=== PATIENT | male | born 1950 | race Caucasian/White ===

== ENCOUNTER 2020-02-28 06:20 | Outpatient (REF) | payer MEDICARE, OTHER, SELFPAY ==
[2020-02-29 11:11] LABS: Free Prostate Spec Ag 1.1 ng/mL; Percent Free Prostate Spec Ag 23 % (calc) (>25); Prostate Specific Ag Total 4.7 ng/mL (< OR = 4.0)
== END 2020-02-28 06:21 | disposition home or self-care (01) ==
LOC: HO.LAB 06:20
PROVIDERS: PCP Internal Medicine; Visit Provider Urology
DX: C61 Malignant neoplasm of prostate (principal)
CPT/HCPCS: 84153; 84154

== ENCOUNTER → 2020-05-01 10:20 | Outpatient (BNVA) | payer MEDICARE, OTHER, SELFPAY | PROVIDERS: PCP Internal Medicine; Visit Provider Urology | DX: C61 Malignant neoplasm of prostate (principal); R97.20 Elevated prostate specific antigen [PSA]; Z80.42 Family history of malignant neoplasm of prostate | CPT/HCPCS: 81002; 99212 ==

== ENCOUNTER 2020-07-24 06:05 | Outpatient (REF) | payer MEDICARE, OTHER, SELFPAY ==
[2020-07-24 08:14] LABS: Prostate Specific Antigen 5.99 ng/mL (<0.05-4.0)
== END 2020-07-24 06:06 | disposition home or self-care (01) ==
LOC: HO.LAB 06:05
PROVIDERS: PCP Internal Medicine; Visit Provider Urology
DX: Z12.5 Encounter for screening for malignant neoplasm of prostate (principal); R97.20 Elevated prostate specific antigen [PSA]; C61 Malignant neoplasm of prostate
CPT/HCPCS: 36415; 84153

== ENCOUNTER → 2020-08-01 08:19 | Outpatient (BNVA) | payer MEDICARE, OTHER, SELFPAY | PROVIDERS: PCP Internal Medicine; Visit Provider Urology | DX: C61 Malignant neoplasm of prostate (principal) | CPT/HCPCS: 99212 ==

== ENCOUNTER 2020-08-04 13:23 | Outpatient (REF) | payer MEDICARE, OTHER, SELFPAY ==
--- NOTE | ~2020-08-04 | XR_ITS ---
EXAMINATION: XR LUMBOSACRAL SPINE CLINICAL INFORMATION: Low back pain COMPARISON: Previous x-ray August 2014 TECHNIQUE: Three views of the lumbosacral spine. FINDINGS: Bone alignment is normal. No fracture or dislocation is seen. There is degenerative spondylosis at L1-L2 3 and L3-L4. Disc spaces are normal. There is lower lumbar spine facet arthritis. There is evidence of atherosclerotic disease. XR/XR lumbar spine 2-3V IMPRESSION: Degenerative changes.
== END 2020-08-04 13:24 | disposition home or self-care (01) ==
LOC: HO.HMGCX 13:23
PROVIDERS: PCP Internal Medicine; Visit Provider Internal Medicine
DX: M54.5 Low back pain (principal)
CPT/HCPCS: 72100

== ENCOUNTER 2020-11-01 07:21 | Outpatient (REF) | payer MEDICARE, OTHER, SELFPAY ==
[2020-11-01 08:08] LABS: Blood Urea Nitrogen 19 mg/dL (9-16); Estimated Glomerular Filt Rate > 60
[2020-11-01 08:29] LABS: Prostate Specific Antigen 3.39 ng/mL (<0.05-4.0)
== END 2020-11-01 07:22 | disposition home or self-care (01) ==
LOC: HO.MRI 07:21
PROVIDERS: PCP Internal Medicine; Visit Provider Urology
DX: Z12.5 Encounter for screening for malignant neoplasm of prostate (principal); C61 Malignant neoplasm of prostate; N26.1 Atrophy of kidney (terminal); N13.8 Other obstructive and reflux uropathy; N40.1 Benign prostatic hyperplasia with lower urinary tract symptoms
CPT/HCPCS: 36415; 82565; 84153; 84520

== ENCOUNTER → 2020-12-05 15:12 | Outpatient (BNVA) | payer MEDICARE, OTHER, SELFPAY | PROVIDERS: PCP Internal Medicine; Visit Provider Urology | DX: C61 Malignant neoplasm of prostate (principal) | CPT/HCPCS: 99212 ==

== ENCOUNTER 2021-01-17 21:31 | Inpatient (IN) | payer MEDICARE, OTHER, SELFPAY ==
--- NOTE | ~2021-01-17 | MR_ITS ---
EXAMINATION: MR ABDOMEN WITHOUT CONTRAST CLINICAL INFORMATION: Dilated bile ducts COMPARISON: Previous CT of the abdomen and pelvis from yesterday TECHNIQUE: MR abdomen is performed without gadolinium contrast. The patient was claustrophobic and the exam could not be completed. MRCP sequences were not obtained. Localizer, coronal and axial T2 and axial fat sat T2 sequences only through the abdomen were performed. FINDINGS: LUNG BASES: The visualized lung bases are unremarkable. LIVER, GALLBLADDER, AND BILIARY TREE: There is a 1 x 1.5 cm right T2 lesion in the inferior aspect of the posterior segment of the right lobe of the liver that probably represents a cyst. There is a small 3 mm bright T2 lesion high in the dome of the right lobe and may represent a small cyst as well. The gallbladder is dilated. There is gallbladder wall thickening and edema. The gallbladder wall measures 6 mm. No gallstones are seen. Fluid fluid level in the gallbladder is noted. There is no intrahepatic biliary duct dilatation. The common bile duct is not well visualized. The visualized common bile duct is slightly dilated measuring 1 cm. A common bile duct stone is not seen. PANCREAS: Unremarkable. The main pancreatic duct is normal. SPLEEN: Unremarkable. ADRENAL GLANDS: Unremarkable. KIDNEYS AND URETERS: The kidneys are normal in size and shape. No hydronephrosis. No perinephric stranding. GASTROINTESTINAL TRACT: No bowel obstruction. No ascites or fluid collection. ABDOMINAL WALL: No significant hernia is appreciated. LYMPH NODES: No lymphadenopathy. VASCULAR: Unremarkable. OSSEOUS STRUCTURES: Marrow signal normal. There is degenerative disc disease with loss of bright T2 disc signal. MR/MR abdomen wo con IMPRESSION: Incomplete exam due to patient claustrophobia. MRCP sequences were not performed. The visualized common bile duct is minimally dilated measuring 1 cm. The intrahepatic bile ducts do not appear dilated. Enlarged gallbladder with gallbladder wall thickening and edema. No gallstone seen. if there is concern for cholecystitis, HIDA scan or ultrasound should be considered.
--- NOTE | ~2021-01-17 | CT_ITS ---
EXAMINATION: CT ABDOMEN AND PELVIS WITH CONTRAST CLINICAL INFORMATION: Severe epigastric pain. Leukocytosis. COMPARISON: None TECHNIQUE: Multidetector volumetric images were obtained from the superior aspect of the liver through the pubic symphysis following administration 85 mL of Omnipaque 350 intravenous contrast. Sagittal and coronal reformatted images were obtained on the technologist's workstation. Oral contrast: No This CT examination was performed using dose optimization techniques as appropriate, variously including the following: *Automated exposure control *Adjustment of mA and/or kV according to patient size (this includes techniques or standardized protocols for targeted exams where dose is matched to indication/reason for exam; i.e. extremities or head) *Use of iterative reconstruction technique DLP: 580 mGy-cm FINDINGS: LUNG BASES: The visualized lung bases are unremarkable. LIVER, GALLBLADDER, AND BILIARY TREE: The liver is normal in size, shape, and attenuation. There is a 1.9 cm cyst within hepatic segment 6, benign. There is mild central intrahepatic biliary duct dilatation and dilatation of the common bile duct to 10 mm, tapering smoothly to the ampulla. The gallbladder is distended. There is nondependent fat density within the gallbladder, likely cholesterol. Suspect cholelithiasis. No pericholecystic fat stranding. PANCREAS: Atrophic but otherwise unremarkable. SPLEEN: Unremarkable. ADRENAL GLANDS: There is a 1.1 cm nodule within the left adrenal gland. Right adrenal gland is normal. KIDNEYS AND URETERS: The kidneys are normal in size, shape, and attenuation. No hydronephrosis, hydroureter, or calculi seen. No perinephric stranding. BLADDER: Unremarkable. GASTROINTESTINAL TRACT: The small and large bowel are unremarkable. The appendix is unremarkable. ABDOMINAL WALL: No significant hernia is appreciated. LYMPH NODES: Normal. VASCULAR: Aorta is atherosclerotic but normal caliber. Patent venous structures. PELVIC VISCERA: Prostatomegaly present with median lobe impressing upon the bladder base to 0.1 cm. OSSEOUS STRUCTURES: No acute or suspicious osseous abnormalities. Prominent posterior disc herniation present at L4-L5. Smaller disc herniations present throughout the remainder of the lumbar spine. CT/CT abdomen pelvis w con IMPRESSION: * Cholelithiasis suspected. Consider right upper quadrant ultrasound if cholecystitis is a clinical possibility. * Mild dilatation of the biliary tree, without obstructive etiology identified from a CT imaging standpoint. * Incidental 1.1 cm left adrenal nodule. Consider follow-up CT adrenal mass protocol in one year, per ACR recommendations. * Prostatomegaly.
--- NOTE | ~2021-01-17 | US_ITS ---
EXAMINATION: US ABDOMEN LIMITED CLINICAL INFORMATION: Abdominal pain. Fullness gallbladder and common duct on recent cross-sectional imaging. COMPARISON: CT abdomen and pelvis 01/18/2021, MR abdomen noncontrast 01/18/2021 TECHNIQUE: Real-time imaging of the right upper quadrant abdominal viscera. FINDINGS: PANCREAS: No pancreatic enlargement or ductal dilatation or retroperitoneal effusion. LIVER: The liver is normal in size and smooth in contour. There is mild increased hepatic parenchymal echogenicity consistent with mild hepatic steatosis. There is a subcapsular cyst inferior right lobe responding to the lesion on CT and MR imaging measuring 1.7 x 1.5 cm. No associated peripheral or internal color flow. The remainder the liver shows no parenchymal lesion. There is no intrahepatic ductal dilatation. GALLBLADDER: The gallbladder is mildly the gallbladder is distended and there is circumferential wall thickening measuring up to 6 mm in caliber. There is no hyperemia of the gallbladder wall on color Doppler. There is near side increased echogenicity within the gallbladder lumen with strong posterior acoustic shadowing. Findings suggest diffuse gravel-like calculi and/or echogenic sludge. COMMON BILE DUCT: Not visualized by ultrasound. RIGHT KIDNEY: Normal. No hydronephrosis. No renal calculi or focal parenchymal lesions. The kidney measures 12.3 cm in maximum dimension. FREE FLUID: No gross ascites demonstrated. US/US abdomen limited IMPRESSION: 1. Distended gallbladder with circumferential wall thickening, increased intralumenal echogenicity and strong posterior shadowing. Findings suggest diffuse intraluminal gravel-like calculi. Possibility of acute or chronic cholecystitis is raised. 2. Common duct not visualized. No definite intrahepatic ductal dilatation. 3. Mild hepatic steatosis. Cyst inferior right hepatic lobe under 2 cm.
[2021-01-17 21:43] VITALS: BP 172/93; PULSE 66; RESP 15; TEMP 36; O2SAT 98; BMI 26.3
[2021-01-17 22:00] LABS: MANUAL DIFF FLAG NO
[2021-01-17 22:03] LABS: Basophils Percent Auto 0.2 % (0-2); Eosinophils Absolute Auto 0.3 X10*3/uL (0.0-0.4); Eosinophils Percent Auto 1.5 % (0-4); Hematocrit 48.1 % (42-52); Hemoglobin 16.6 g/dl (14.0-18.0); Imm Gran Abs Auto 0.08 X10*3/uL (0.00-0.03); Imm Gran Pct Auto 0.5 % (0.0-0.4); Lymphocytes Absolute Auto 1.4 X10*3/uL (1.2-4.9); Lymphocytes Percent Auto 8.8 % (20-40); Mean Corpuscular HGB Conc 34.5 g/dl (31.0-36.0); Mean Corpuscular Hemoglobin 32.5 pg (27.0-33.0); Mean Corpuscular Volume 94.1 fL (80-98); Mean Platelet Volume 9.6 fL (9.4-12.4); Monocytes Absolute Auto 1.2 X10*3/uL (0.1-1.2); Monocytes Percent Auto 7.4 % (2-11); Neutrophils Absolute Auto 13.4 X10*3/uL (2.0-8.3); Neutrophils Percent Auto 81.6 % (45-73); Platelet Count 252 X10*3/uL (160-400); Red Blood Count 5.11 X10*6/uL (4.60-5.80); Red Cell Distribution Width 12.2 % (11.0-16.0); White Blood Count 16.4 X10*3/uL (4.8-10.8)
[2021-01-17 22:26] LABS: Alanine Aminotransferase 24 U/L (0-40); Albumin Level 4.5 g/dL (3.5-5.0); Alkaline Phosphatase 112 U/L (39-117); Anion Gap 10 (12-20); Aspartate Amino Transferase 20 U/L (5-37); Bilirubin Total 0.4 mg/dL (0.0-1.0); Blood Urea Nitrogen 18 mg/dL (9-16); Calcium 9.8 mg/dL (8.4-10.2); Carbon Dioxide 31 mmol/L (22-29); Chloride 103 mmol/L (96-108); Creatinine Clr Calc Pharmacy 68.4; Estimated Glomerular Filt Rate > 60; Glucose Random 130 mg/dL (60-115); Lipase 18 U/L (8-78); Potassium 4.1 mmol/L (3.3-5.1); Sodium 140 mmol/L (135-145); Total Protein 6.9 g/dL (6.5-8.0)
[2021-01-17 22:38] LABS: Appearance Urine CLEAR; Color Urine YELLOW; Glucose Urine UA NEG (NEG); Leukocyte Esterase Urine NEG (NEG); Nitrite Urine NEG (NEG); Specific Gravity - Urine 1.025 (1.005-1.025); UACC Culture Trigger NO; Urine Blood TRACE (NEG); Urine Ketones NEG (NEG); Urine Protein NEG (NEG-TRACE)
--- NOTE | 2021-01-17 22:43 | ED_ITS ---
HPI - Abdominal Pain General Chief Complaint: Abdominal Pain Stated Complaint: abd pain Time Seen by Provider: 01/17/21 22:43 Source: patient Mode of arrival: ambulatory Limitations: no limitations History of Present Illness HPI narrative: increasing pain in the upper abdomen. The pain started 5 hours ago increasing. No nausea or vomiting no diarrhea. No prior surgery, no prior history. Patient denies fever or diarrhea. MD elicited complaint: abdominal pain Onset (ago): hour(s) Pain Consistency: constant Location: epigastric Severity: moderate Quality: cramping Exacerbating factors: nothing Relieving factors: nothing Related Data Home Medications Medication Instructions Recorded Confirmed aspirin 81 mg tablet,delayed 81 mg PO DAILY 05/01/20 release (Adult Aspirin Regimen) latanoprost 0.005 % eye drops drp OPHTHALMIC-RIGHT 05/01/20 Previous Rx's Medication Instructions Recorded finasteride 5 mg tablet 5 mg PO DAILY 90 Days #90 tab 08/01/20 finasteride 5 mg tablet 5 mg PO DAILY 90 Days #90 tab 12/28/20 Allergies Allergy/AdvReac Type Severity Reaction Status Date / Time Sulfa (Sulfonamide Allergy Unknown rash Verified 12/05/20 15:41 Antibiotics) Review of Systems Constitutional: Reports no additional constitutional complaints Eyes: Reports no additional eye complaints Denies dizziness Cardiovascular: Reports no additional cardiovascular complaints Respiratory: Reports as per HPI Gastrointestinal: Reports no additional gastrointestinal complaints Musculoskeletal: Reports no additional musculoskeletal complaints Skin/Breast: Denies rash Reports system reviewed and no additional complaints, except as documented, Denies dizziness and Denies Sensory deficit (Neuro) Psychiatric: Denies anxiety Physical Exam Vital Signs: Vital Signs: Last Vital Signs Temp 96.8 F 01/17/21 21:43 Pulse 66 01/17/21 21:43 Resp 18 01/18/21 01:35 BP 172/93 H 01/17/21 21:43 Pulse Ox 98 01/17/21 21:43 Body Mass Index 26.3 Neuro: Sensory Exam: No Sensory deficit (Neuro) Course Reevaluation(s) Reevaluation #1: Discussed with Dr. Calixto who wants me to discuss with GI Time: 01:53 Reevaluation #2: Discussed with Dr. Oneil who states that it is fine to admit and obtain US and Mrcp if necessary Time: 02:08 MDM - Abdominal Pain Lab Data Result diagrams: 01/17/21 21:56 01/17/21 21:56 Labs: Lab Results 01/17/21 01/17/21 01/17/21 Range/Units 21:56 21:56 22:33 WBC 16.4 H (4.8-10.8) X10*3/uL RBC 5.11 (4.60-5.80) X10*6/uL Hgb 16.6 (14.0-18.0) g/dl Hct 48.1 (42-52) % MCV 94.1 (80-98) fL MCH 32.5 (27.0-33.0) pg MCHC 34.5 (31.0-36.0) g/dl RDW 12.2 (11.0-16.0) % Plt Count 252 (160-400) X10*3/uL MPV 9.6 (9.4-12.4) fL Immature Gran % (Auto) 0.5 H (0.0-0.4) % Neut % (Auto) 81.6 H (45-73) % Lymph % (Auto) 8.8 L (20-40) % [place] % (Auto) 7.4 (2-11) % Eos % (Auto) 1.5 (0-4) % Baso % (Auto) 0.2 (0-2) % Lymph # (Auto) 1.4 (1.2-4.9) X10*3/uL [place] # (Auto) 1.2 (0.1-1.2) X10*3/uL Eos # (Auto) 0.3 (0.0-0.4) X10*3/uL Baso # (Auto) 0.0 (0.0-0.2) X10*3/uL Abs Immat Gran (auto) 0.08 H (0.00-0.03) X10*3/uL Absolute Neuts (auto) 13.4 H (2.0-8.3) X10*3/uL Absolute Nucleated RBC 0.000 (0.0-0.012) X10*3/uL Nucleated RBC % (auto) 0.0 (0.0-0.2) /100WBC Sodium 140 (135-145) mmol/L Potassium 4.1 (3.3-5.1) mmol/L Chloride 103 (96-108) mmol/L Carbon Dioxide 31 H (22-29) mmol/L Anion Gap 10 L (12-20) BUN 18 H (9-16) mg/dL Creatinine 0.99 (0.5-1.4) mg/dL Estim Creat Clear Calc 68.4 Estimated GFR > 60 Random Glucose 130 H (60-115) mg/dL Calcium 9.8 (8.4-10.2) mg/dL Total Bilirubin 0.4 (0.0-1.0) mg/dL AST 20 (5-37) U/L ALT 24 (0-40) U/L Alkaline Phosphatase 112 (39-117) U/L Troponin I High Sens (<3.5-35.0) ng/L Total Protein 6.9 (6.5-8.0) g/dL Albumin 4.5 (3.5-5.0) g/dL Lipase 18 (8-78) U/L Urine Color YELLOW Urine Appearance CLEAR Urine pH 6.0 (5.0-8.0) Ur Specific [place] 1.025 (1.005-1.025) Urine Protein NEG (NEG-TRACE) MG/DL Urine Glucose (UA) NEG (NEG) MG/DL Urine Ketones NEG (NEG) MG/DL Urine Blood TRACE (NEG) Urine Nitrite NEG (NEG) Ur Leukocyte Esterase NEG (NEG) Urine RBC 1-4 (0) /HPF Urine WBC 0 (0-4) /HPF Ur Squamous Epith Cells NONE /LPF Urine Bacteria TRACE /LPF 01/17/21 01/18/21 Range/Units 23:57 01:31 WBC (4.8-10.8) X10*3/uL RBC (4.60-5.80) X10*6/uL Hgb (14.0-18.0) g/dl Hct (42-52) % MCV (80-98) fL MCH (27.0-33.0) pg MCHC (31.0-36.0) g/dl RDW (11.0-16.0) % Plt Count (160-400) X10*3/uL MPV (9.4-12.4) fL Immature Gran % (Auto) (0.0-0.4) % Neut % (Auto) (45-73) % Lymph % (Auto) (20-40) % [place] % (Auto) (2-11) % Eos % (Auto) (0-4) % Baso % (Auto) (0-2) % Lymph # (Auto) (1.2-4.9) X10*3/uL [place] # (Auto) (0.1-1.2) X10*3/uL Eos # (Auto) (0.0-0.4) X10*3/uL Baso # (Auto) (0.0-0.2) X10*3/uL Abs Immat Gran (auto) (0.00-0.03) X10*3/uL Absolute Neuts (auto) (2.0-8.3) X10*3/uL Absolute Nucleated RBC (0.0-0.012) X10*3/uL Nucleated RBC % (auto) (0.0-0.2) /100WBC Sodium (135-145) mmol/L Potassium (3.3-5.1) mmol/L Chloride (96-108) mmol/L Carbon Dioxide (22-29) mmol/L Anion Gap (12-20) BUN (9-16) mg/dL Creatinine (0.5-1.4) mg/dL Estim Creat Clear Calc Estimated GFR Random Glucose (60-115) mg/dL Calcium (8.4-10.2) mg/dL Total Bilirubin (0.0-1.0) mg/dL AST (5-37) U/L ALT (0-40) U/L Alkaline Phosphatase (39-117) U/L Troponin I High Sens 49.9 H* 47.6 H* (<3.5-35.0) ng/L Total Protein (6.5-8.0) g/dL Albumin (3.5-5.0) g/dL Lipase (8-78) U/L Urine Color Urine Appearance Urine pH (5.0-8.0) Ur Specific [place] (1.005-1.025) Urine Protein (NEG-TRACE) MG/DL Urine Glucose (UA) (NEG) MG/DL Urine Ketones (NEG) MG/DL Urine Blood (NEG) Urine Nitrite (NEG) Ur Leukocyte Esterase (NEG) Urine RBC (0) /HPF Urine WBC (0-4) /HPF Ur Squamous Epith Cells /LPF Urine Bacteria /LPF ECG Data Attestation: I personally reviewed and interpreted this ECG as follows: Interpretation: normal sinus, rate of 70, no st or twave changes Discharge Plan Discharge Clinical Impression: Biliary disease with obstruction Patient Disposition: Admitted As Inpatient Prescriptions: No Action finasteride 5 mg tablet 5 mg PO DAILY 90 Days Qty: 90 RF: 3 finasteride 5 mg tablet 5 mg PO DAILY 90 Days Qty: 90 RF: 1 latanoprost 0.005 % drops ophthalmic-Right RF: 0 aspirin [Adult Aspirin Regimen] 81 mg tablet,delayed release (DR/EC) 81 mg PO DAILY RF: 0 PMFSH Past Medical History Medical History Elevated PSA Family history of prostate cancer Prostate cancer Surgical History History of colonoscopy History of vasectomy Family History Family History Father No problems noted. Mother No problems noted. Paternal Grandfather Prostate cancer Social History Social History Advance Directives: No
[2021-01-17 22:47] LABS: Bacteria Urine TRACE /LPF; WBC Urine 0 /HPF (0-4)
--- NOTE | 2021-01-17 22:56 | ECG_ITS ---
Test Reason : EPIGASTRIC PAIN Blood Pressure : / mmHG Vent. Rate : 073 BPM Atrial Rate : 073 BPM P-R Int : 174 ms QRS Dur : 096 ms QT Int : 382 ms P-R-T Axes : 068 077 043 degrees QTc Int : 420 ms Sinus rhythm with marked sinus arrhythmia Otherwise normal ECG No previous ECGs available Referred By: Anthony Valdez Electronically Signed By:SHERLEY ROSA MD
[2021-01-17] MEDS: ondansetron HCL 4 MG/2 ML VIAL IVPUSH (23:15)
[2021-01-17] MEDS: Morphine Sulfate 4 MG/ML CARTRIDGE IVPUSH (23:15)
[2021-01-17] MEDS: 0.9 % Sodium Chloride 1,000 ML 999 ML IVCONT (23:15)
[2021-01-17] MEDS: Pantoprazole Sodium 40 MG/10 ML VIAL IVPUSH (23:16)
[2021-01-18] VITALS (14 sets, daily range): BP systolic 107–152; BP diastolic 68–88; PULSE 66–88; RESP 12–18; TEMP 36.2–37.1; O2SAT 93–98; BMI 26.2
[2021-01-18] MEDS: iohexoL 350 MG/ML 100 ML INFUS..BTL 85 ML IV (00:27)
[2021-01-18 00:31] LABS: Troponin-I High Sensitivity 49.9 ng/L (<3.5-35.0)
[2021-01-18] MEDS: 0.9 % Sodium Chloride 1,000 ML 999 ML IVCONT (01:34)
[2021-01-18] MEDS: Morphine Sulfate 4 MG/ML CARTRIDGE IVPUSH (01:35)
[2021-01-18] MEDS: Piperacillin Sodium/Tazobactam 3.375 GM in 0.9 % Sodium Chloride 50 ML IV ×4 (01:35→22:23)
--- NOTE | 2021-01-18 01:37 | PC.NURSE ---
PT RESTING IN STRETCHER RATING PAIN 9/10. PT MEDICATED AFTER BC X 2 DRAWN AND SENT TO LAB. 2ND L OF NS UP AND RUNNING, SITE INTACT. ZOSYN ALSO UP AND RUNNING W/O DIFFICULTY. PT AWAITING FOR FURTHER ORDERS.
[2021-01-18 01:59] LABS: Troponin-I High Sensitivity 47.6 ng/L (<3.5-35.0)
--- NOTE | 2021-01-18 03:23 | PC.NURSE ---
pt up to restroom with steady gait. Pt denies any complaints. respirations easy, n/l. skin w/d. pt awaiting for transfer to floor. pt has room assignment of [id number]
--- NOTE | 2021-01-18 05:13 | PM.IMHP ---
History of Present Illness Date of Service: 01/18/21 Chief Complaint: Epigastric pain 70-year-old male with a past medical history of BPH presented to the hospital with a chief complaint of upper abdominal pain. Patient reported that he was doing fine until yesterday and today he noticed severe abdominal pain located in the upper abdomen, epigastrium; denies any associated nausea vomiting or diarrhea. Denies any fever chills cough. Denies any recent travel or sick contacts. Patient denies any chest pain palpitations lightheadedness or dizziness. Denies any shortness of breath. Review of all other systems is negative except mentioned above ER course: Per ER team patient noted to have upper abdominal tenderness; CT scan showed dilation of the intrahepatic and extrahepatic biliary ducts. On labs noted to have mild leukocytosis. Patient was given Zosyn empirically. Discussed with Dr. Oneil from Gastroenterology who suggested MRCP admission to the medicine service. Also noted that patient had indeterminate troponins. EKG was nonischemic. [facility] Medical History Elevated PSA Family history of prostate cancer Prostate cancer Family History Father No problems noted. Mother No problems noted. Paternal Grandfather Prostate cancer Pertinent family history: As mentioned above Surgical History History of colonoscopy History of vasectomy Social History Advance Directives: No Meds Allergies Allergy/AdvReac Type Severity Reaction Status Date / Time Sulfa (Sulfonamide Allergy Unknown rash Verified 12/05/20 15:41 Antibiotics) Active Medications: Current Medications Piperacillin Sod/Tazobactam (Sod 3.375 gm/ Sodium Chloride) 50 mls @ 100 mls/hr IV Q6H BHAVANI Home Medications Medication Instructions Recorded Confirmed Last Taken Type aspirin 81 mg tablet,delayed 81 mg PO DAILY 05/01/20 Unknown History release (Adult Aspirin Regimen) latanoprost 0.005 % eye drops drp OPHTHALMIC-RIGHT 05/01/20 Unknown History Physical Exam Vital Signs and Narrative: Vital Signs: Last Vital Signs Temp 96.8 F 01/17/21 21:43 Pulse 66 01/17/21 21:43 Resp 18 01/18/21 01:35 BP 172/93 H 01/17/21 21:43 Pulse Ox 98 01/17/21 21:43 Body Mass Index 26.3 Gen: Appears be in no acute distress HEENT: NCAT, Moist mucosa. Pulmonary: Vesicular breath sounds, fair air entry CVS: Normal S1-S2 Abdomen: BS+, Soft, mildly tender in the epigastrium; no guarding no rigidity Extremities: Warm well perfused Neuro: Alert and awake. Results Labs CBC and Chem 7: 01/17/21 21:56 01/17/21 21:56 Labs: Laboratory Results - last 24 hr 01/17/21 01/17/21 01/17/21 21:56 21:56 22:33 MCV 94.1 MCH 32.5 MCHC 34.5 RDW 12.2 Plt Count 252 MPV 9.6 Immature Gran % (Auto) 0.5 H Neut % (Auto) 81.6 H Lymph % (Auto) 8.8 L [place] % (Auto) 7.4 Eos % (Auto) 1.5 Baso % (Auto) 0.2 Lymph # (Auto) 1.4 [place] # (Auto) 1.2 Eos # (Auto) 0.3 Baso # (Auto) 0.0 Abs Immat Gran (auto) 0.08 H Absolute Neuts (auto) 13.4 H Absolute Nucleated RBC 0.000 Nucleated RBC % (auto) 0.0 Anion Gap 10 L Estim Creat Clear Calc 68.4 Estimated GFR > 60 Random Glucose 130 H Calcium 9.8 Total Bilirubin 0.4 AST 20 ALT 24 Alkaline Phosphatase 112 Troponin I High Sens Total Protein 6.9 Albumin 4.5 Lipase 18 Urine Color YELLOW Urine Appearance CLEAR Urine pH 6.0 Ur Specific [place] 1.025 Urine Protein NEG Urine Glucose (UA) NEG Urine Ketones NEG Urine Blood TRACE Urine Nitrite NEG Ur Leukocyte Esterase NEG Urine RBC 1-4 Urine WBC 0 Ur Squamous Epith Cells NONE Urine Bacteria TRACE 01/17/21 01/18/21 23:57 01:31 MCV MCH MCHC RDW Plt Count MPV Immature Gran % (Auto) Neut % (Auto) Lymph % (Auto) [place] % (Auto) Eos % (Auto) Baso % (Auto) Lymph # (Auto) [place] # (Auto) Eos # (Auto) Baso # (Auto) Abs Immat Gran (auto) Absolute Neuts (auto) Absolute Nucleated RBC Nucleated RBC % (auto) Anion Gap Estim Creat Clear Calc Estimated GFR Random Glucose Calcium Total Bilirubin AST ALT Alkaline Phosphatase Troponin I High Sens 49.9 H* 47.6 H* Total Protein Albumin Lipase Urine Color Urine Appearance Urine pH Ur Specific [place] Urine Protein Urine Glucose (UA) Urine Ketones Urine Blood Urine Nitrite Ur Leukocyte Esterase Urine RBC Urine WBC Ur Squamous Epith Cells Urine Bacteria Imaging Radiologist's Impressions: Impressions Abdomen/Pelvis CT 01/18/21 00:00 IMPRESSION: * Cholelithiasis suspected. Consider right upper quadrant ultrasound if cholecystitis is a clinical possibility. * Mild dilatation of the biliary tree, without obstructive etiology identified from a CT imaging standpoint. * Incidental 1.1 cm left adrenal nodule. Consider follow-up CT adrenal mass protocol in one year, per ACR recommendations. * Prostatomegaly. Assessment and Plan 70-year-old male with a past medical history of BPH presented to the hospital with a chief complaint of upper abdominal pain. Noted to have intrahepatic and extrahepatic biliary ductal dilatation. Abdominal pain: Noted to have intrahepatic and extrahepatic biliary ductal dilatation on the CT scan. Gastroenterology recommended MRCP. Pain control Supportive care Patient also noted to have initial leukocytosis-empirically given Zosyn. Will continue for now. Indeterminate troponins: Patient denies any chest pain. EKG nonischemic. Telemetry. Cycle cardiac enzymes. Cardiology consult. Echocardiogram. Send negative profile, hemoglobin A1c. Patient on aspirin at home-will hold for now in anticipation for procedure. History of BPH: Continue home finasteride. DVT prophylaxis: SCD boots Code status: Full code Quality Stroke Does the patient have a stroke diagnosis?: No VTE Prior VTE?: No VTE Risk Level:: Medical - low VTE Device Contraindication: N/A - Device Ordered VTE Drug Contraindication: Treatment Not Indicated
[2021-01-18] MEDS: Dextrose 5 % and 0.45 % NaCl 1,000 ML 100 ML IVCONT ×2 (06:50→22:18)
[2021-01-18] MEDS: HYDROmorphone HCl 0.5 MG/0.5 ML SYRINGE IVPUSH ×2 (06:51→17:46)
--- NOTE | 2021-01-18 06:58 | PC.NURSE ---
REPORT GIVEN TO ON-COMING NURSE.
--- NOTE | 2021-01-18 07:33 | PC.NURSE ---
Assumed care of patient. Pt moved to room 8 for tele monitoring. Pt given pain medications and pt is resting comfortably at this time. Pt is ordered for an MRCP this morning. MRI screening form completed and faxed over.
[2021-01-18] MEDS: Finasteride 5 MG TABLET PO (08:08)
[2021-01-18 08:29] LABS: Hematocrit 46.6 % (42-52); Hemoglobin 16.4 g/dl (14.0-18.0); Mean Corpuscular HGB Conc 35.2 g/dl (31.0-36.0); Mean Corpuscular Hemoglobin 32.9 pg (27.0-33.0); Mean Corpuscular Volume 93.4 fL (80-98); Mean Platelet Volume 9.7 fL (9.4-12.4); Platelet Count 232 X10*3/uL (160-400); Red Blood Count 4.99 X10*6/uL (4.60-5.80); Red Cell Distribution Width 12.4 % (11.0-16.0); White Blood Count 17.3 X10*3/uL (4.8-10.8)
--- NOTE | 2021-01-18 08:30 | CA_ITS ---
Transthoracic Echocardiogram Patient (Last, First, Middle): Waldemar Freeman A Gender: Male Date of : 1950 Age: 70 Procedure Date: 01/18/2021 Procedure Type: Transthoracic Echocardiogram Location: ER Height: 175.26 cm Weight: 80.74 kg BSA: 1.97 m2 Heart Rate: bpm BP: 152 / 88 mmHg Vineyard Worker: BRYSON/JANES Referring MD: Roger Moncada MD Outpatient Physical Therapist: Alexander Vale MD Symptoms: Elevated troponins Study Quality: Fair ECG Rhythm: Sinus Conclusions: - 1. Normal LV systolic function with grade 1 diastolic dysfunction 2. Normal cardiac valvular Doppler 3. Normal RV systolic pressure 4. No pericardial effusion Findings Left Ventricle Normal left ventricular size, thickness, and systolic function. The visually estimated ejection fraction is between 60-65%. Spectral Doppler is indicative of an impaired relaxation filling pattern. E/E prime ratio is <8, consistent with normal filling pressures. Evidence suggests grade I (mild) diastolic dysfunction.Possible hypokinesis of the basal inferior wall cannot be entirely ruled out Right Ventricle Normal right ventricular cavity size and systolic function. Atria The left atrium is normal in size. Interatrial shunt cannot be excluded. The right atrium is normal in size. Aortic Valve There is mild calcification of the aortic valve. There is mild thickening of the aortic valve. There is no aortic valve stenosis. There is no aortic valve regurgitation. Mitral Valve There is mild anterior and posterior mitral leaflet thickening. There is trace mitral valve regurgitation. There is no mitral valve stenosis. Pulmonic Valve The pulmonic valve was not well visualized. Tricuspid Valve Likely normal tricuspid valve structure and function. There is trace tricuspid valve regurgitation. The right ventricular systolic pressure is normal. The right ventricular systolic pressure is 21 mmHg. Normal right atrial pressure. There is no evidence of pulmonary hypertension. Great Vessels All visible segments of the aorta are normal in size. The pulmonary artery was not well visualized. Small plaque is seen in the ascending aorta. Venous The inferior vena cava is normal in size and collapses greater than 50% with inspiration. Pericardium/Pleural There is no evidence of pericardial effusion. Prior Study Comparison No prior study available for comparison. Measurements 2D Linear Measurements IVSd: 1.06 0.6-0.9/0.6-1.0 cm LVIDd: 4.08 3.9-5.3/4.2-5.9 cm LVIDd Index: 2.07 2.4-3.2/2.2-3.1 cm/m2 LVIDs: 2.68 2.0-3.6 cm LVPWd: 1.08 0.7-1.1 cm Ao Root: 3.60 2.1-3.5 cm LA Diam: 2.90 2.7-3.8/3.0-4.0 cm LAIDs Index: 1.47 1.5-2.3 cm/m2 LV Mass: 179.63 67-162/88-224 g LV Mass Index: 91.18 43-95/49-115 g/m2 LVOT Diam: 2.20 3.0+(-)1.3 cm Mitral Valve MV Pk E: 0.57 MV PK A: 0.57 MV Decel Time: 230.00 E/A: 1.00 E'Lateral: 11.40 E'Medial: 7.51 E/E' Med: 7.60 E/E' Lat: 5.00 PHT: 67.00 MVA PHT: 3.28 Decel Arroyo: 2.48 Aortic Valve AoV Pk Arvind: 1.43 AoV Mn Arvind: 1.13 AoV VTI: 0.27 AoV Pk Grad: 8.00 Aov Mn Grad: 6.00 KRYSTINA Cont.VTI: 3.68 LVOT LVOT Pk Arvind: 1.36 LVOT Mn Arvind: 0.92 LVOT VTI: 0.27 LVOT Pk Grad: 7.00 LVOT Mn Grad: 4.00 LVOT Diam: 2.20 LVOT Area: 3.80 Diastolic Function MV Pk E: 0.57 MV Pk A: 0.57 E/A: 1.00 E'Medial: 7.51 E/E' Med: 7.60 E' Laterial: 11.40 E/E' Lat: 5.00 Right Ventricle TAPSE (mm): 2.40 TVS' Arvind: 13.30 Tricuspid Valve TR Pk Arvind: 2.14 TR Pk Grad: 18.00 RA Press: 3.00 RVSP: 21.00 Great Vessels Aorta Ao Root-2D: 3.60 2.0-3.7 cm Ao Asc: 3.60 2.1-3.4 cm Updated in Other Vendor System with Status of Final Alexander Vale MD electronically signed on 01/18/2021 1:50:34 PM with status of Final
[2021-01-18 08:37] LABS: INTERNATIONAL NORM RATIO 1.1 (0.9-1.1); Prothrombin Time 12.7 SEC (9.9-13.0)
[2021-01-18 08:43] LABS: Estimated Average Glucose 111 mg/dL; Hemoglobin A1c % 5.5 %
[2021-01-18 08:48] LABS: Alanine Aminotransferase 28 U/L (0-40); Albumin Level 4.2 g/dL (3.5-5.0); Alkaline Phosphatase 101 U/L (39-117); Aspartate Amino Transferase 24 U/L (5-37); Bilirubin Direct 0.5 mg/dL (0.0-0.5); Bilirubin Total 1.1 mg/dL (0.0-1.0); Cholesterol 164 mg/dL; HDL Cholesterol 39 mg/dL; LDL Cholesterol Calculated 108 mg/dl; Lipase 16 U/L (8-78); Total Protein 6.3 g/dL (6.5-8.0); Triglycerides 85 mg/dL
--- NOTE | 2021-01-18 09:02 | PM.EVENT ---
Event Note Date of Service: 01/18/21 Event Note: GI consult dictated CT reviewed, minimal dilation of CBD with no obvious gallstones. LFTs not elevated, making CBD stone less likely. MRCP today for further evaluation of epigastric pain. If MRI is negative for stones, would consider EGD to eval for PUD, gastritis, or other source for pain. Discussed ERCP and EGD with patient who understands risks and benefits and agrees to proceed.
--- NOTE | 2021-01-18 09:32 | PM.EVENT ---
Event Note Date of Service: 01/18/21 Event Note: Patient was just admitted this morning, rounded on patient and had no new issues. Still with pain, LFTS. I discussed with Dr. Oneil recommends MRCP if negativen then EGD
--- NOTE | 2021-01-18 09:37 | PC.NURSE ---
Pt to MRI for MRCP
--- NOTE | 2021-01-18 10:15 | PC.NURSE ---
RETURNS FROM MRI @ THIS TIME
--- NOTE | 2021-01-18 10:32 | PM.CNCAR ---
History of Present Illness History of Present Illness Date of Service: 01/18/21 Requesting physician: Roger Moncada Consult reason: troponin elevation Chief complaint: abdominal pain Narrative: I was requested to see Waldemar in cardiology consultation today due to abnormal troponins. He is a pleasant 70-year-old male with no significant past medical history except for prostate cancer which is currently under treatment came to the hospital with sudden onset right upper quadrant discomfort which got continued Alice severe and was not able to keep anything down. Patient came to the emergency room noted to have biliary disease with obstruction and is currently undergoing workup. He had a troponin drawn for unclear reason, patient did not have any chest pain. Troponin was minimally elevated in the 40s and has been flat. His EKG is nonischemic. Cardiology consult was sought for abnormal troponin. Patient denies any recent chest pain or any exertional chest pain. Denies exertional shortness of breath. No other cardiac symptoms to report. He says he is pretty active and functional at home. Review of Systems Constitutional: Constitutional: Denies body ache(s), Denies chills, Denies fever(s) and Reports poor appetite Eyes: Eyes: Reports no additional eye complaints Cardiovascular: Cardiovascular: Reports no additional cardiovascular complaints Respiratory: Respiratory: Reports no additional respiratory complaints Gastrointestinal: Gastrointestinal: Reports abdominal pain Genitourinary: Genitourinary: Reports no additional male genitourinary complaints Musculoskeletal: Musculoskeletal: Reports no additional musculoskeletal complaints Integumentary/Breasts: Skin/Breast: Reports system reviewed and no additional complaints, except as docu Neurologic: Reports system reviewed and no additional complaints, except as documented Psychiatric: Psychiatric: Reports no additional psychiatric complaints Endocrine: Endocrine: Reports no additional endocrine complaints Hematologic/Lymphatic: Hematologic/Lymphatic: Reports no additional hematologic/lymphatic complaints Allergic/Immunologic: Allergic/Immunologic: Reports no additional allergic/immunologic complaints [facility] Past Medical History Medical History Elevated PSA Family history of prostate cancer Prostate cancer Family History Family History Father No problems noted. Mother No problems noted. Paternal Grandfather Prostate cancer Surgical History Surgical History History of colonoscopy History of vasectomy Social History Social History Alcohol intake: unknown Patient Tobacco Use Status: Tobacco use Unknown Advance Directives: No Advance Directives Information Provided: No Meds Allergies Allergy/AdvReac Type Severity Reaction Status Date / Time Sulfa (Sulfonamide Allergy Unknown rash Verified 12/05/20 15:41 Antibiotics) Active Medications: Current Medications Acetaminophen (Acetaminophen 325 Mg Tablet) 650 mg PO Q6H PRN PRN Reason: Pain, Mild (Pain Scale 1-3) Finasteride (Finasteride 5 Mg Tablet) 5 mg PO DAILY [facility] Last Admin: 01/18/21 08:08 Dose: 5 mg Documented by: Hydromorphone HCl (Hydromorphone Hcl 0.5 Mg/0.5 Ml Syringe) 0.5 mg IVPUSH Q4H PRN; Protocol PRN Reason: Pain, Severe (Pain Scale 7-10) Last Admin: 01/18/21 06:51 Dose: 0.5 mg Documented by: Piperacillin Sod/Tazobactam (Sod 3.375 gm/ Sodium Chloride) 50 mls @ 100 mls/hr IV Q6H [facility] Last Infusion: 01/18/21 08:19 Dose: Infused Documented by: Dextrose/Sodium Chloride (D51/2ns) 1,000 mls @ 100 mls/hr IVCONT .Q10H [facility] Last Admin: 01/18/21 06:50 Dose: 100 mls/hr Documented by: Melatonin (Melatonin 3 Mg Tablet) 6 mg PO BEDTIME PRN PRN Reason: Insomnia Omeprazole (Omeprazole 20 Mg Capsule.Dr) 20 mg PO DAILY@0630 [facility] Senna (Sennosides 8.6 Mg Tablet) 17.2 mg PO BEDTIME PRN PRN Reason: Constipation Sodium Chloride (0.9 % Sodium Chloride Flush 3 Ml Syringe) 3 ml IVFLUSH QSHIFT [facility] Last Admin: 01/18/21 07:44 Dose: Not Given Documented by: Home Medications Medication Instructions Recorded Confirmed Last Taken Type aspirin 81 mg tablet,delayed 81 mg PO DAILY 05/01/20 Unknown History release (Adult Aspirin Regimen) latanoprost 0.005 % eye drops drp OPHTHALMIC-RIGHT 05/01/20 Unknown History Physical Exam Vital Signs: Vital Signs: Last Vital Signs Temp 98.2 F 01/18/21 07:18 Pulse 82 01/18/21 10:18 Resp 14 01/18/21 10:18 BP 135/73 01/18/21 10:18 Pulse Ox 95 01/18/21 10:18 Body Mass Index 26.3 Const: General: cooperative, comfortable, no acute distress, well developed, alert and awake Nutritional Appearance: average body habitus Orientation/consciousness: patient oriented x3 Limitations: no limitations HENMT: Head: Yes normocephalic and Yes atraumatic Neck: Neck: Yes trachea midline, Yes supple and Yes no JVD Chest: Chest palpation & inspection: normal inspection of the chest Resp: Effort & Inspection: normal respiratory effort Auscultation: clear to auscultation bilaterally Cardio: Jugular venous distension: no JVD Palpation: normal PMI Rate: regular rate Rhythm: regular rhythm Heart sounds: S1 normal heart sound present, S2 normal heart sound present, no click, no gallops, no murmurs and no rubs GI: Palpation (GI): Tenderness to palpation present (GI) in the RUQ Auscultation: normal bowel sounds Skin: General skin exam: no rashes or lesions noted Neuro: General: patient oriented x3 and no focal motor deficits Extrem: General: Yes no clubbing, cyanosis or edema Psych: Appearance: grossly normal Results Labs and Meds Result diagrams: 01/18/21 08:16 01/17/21 21:56 Lab results: Laboratory Results - last 24 hr 01/17/21 01/17/21 01/17/21 21:56 21:56 22:33 WBC 16.4 H RBC 5.11 Hgb 16.6 Hct 48.1 MCV 94.1 MCH 32.5 MCHC 34.5 RDW 12.2 Plt Count 252 MPV 9.6 Immature Gran % (Auto) 0.5 H Neut % (Auto) 81.6 H Lymph % (Auto) 8.8 L [place] % (Auto) 7.4 Eos % (Auto) 1.5 Baso % (Auto) 0.2 Lymph # (Auto) 1.4 [place] # (Auto) 1.2 Eos # (Auto) 0.3 Baso # (Auto) 0.0 Abs Immat Gran (auto) 0.08 H Absolute Neuts (auto) 13.4 H Absolute Nucleated RBC 0.000 Nucleated RBC % (auto) 0.0 PT INR Sodium 140 Potassium 4.1 Chloride 103 Carbon Dioxide 31 H Anion Gap 10 L BUN 18 H Creatinine 0.99 Estim Creat Clear Calc 68.4 Estimated GFR > 60 Random Glucose 130 H Estimat Average Glucose Hemoglobin A1c % Calcium 9.8 Total Bilirubin 0.4 Direct Bilirubin AST 20 ALT 24 Alkaline Phosphatase 112 Troponin I High Sens Total Protein 6.9 Albumin 4.5 Triglycerides Cholesterol LDL Cholesterol, Calc HDL Cholesterol Lipase 18 Urine Color YELLOW Urine Appearance CLEAR Urine pH 6.0 Ur Specific [place] 1.025 Urine Protein NEG Urine Glucose (UA) NEG Urine Ketones NEG Urine Blood TRACE Urine Nitrite NEG Ur Leukocyte Esterase NEG Urine RBC 1-4 Urine WBC 0 Ur Squamous Epith Cells NONE Urine Bacteria TRACE 01/17/21 01/18/21 01/18/21 23:57 01:31 08:16 WBC RBC Hgb Hct MCV MCH MCHC RDW Plt Count MPV Immature Gran % (Auto) Neut % (Auto) Lymph % (Auto) [place] % (Auto) Eos % (Auto) Baso % (Auto) Lymph # (Auto) [place] # (Auto) Eos # (Auto) Baso # (Auto) Abs Immat Gran (auto) Absolute Neuts (auto) Absolute Nucleated RBC Nucleated RBC % (auto) PT INR Sodium Potassium Chloride Carbon Dioxide Anion Gap BUN Creatinine Estim Creat Clear Calc Estimated GFR Random Glucose Estimat Average Glucose 111 Hemoglobin A1c % 5.5 Calcium Total Bilirubin Direct Bilirubin AST ALT Alkaline Phosphatase Troponin I High Sens 49.9 H* 47.6 H* Total Protein Albumin Triglycerides Cholesterol LDL Cholesterol, Calc HDL Cholesterol Lipase Urine Color Urine Appearance Urine pH Ur Specific [place] Urine Protein Urine Glucose (UA) Urine Ketones Urine Blood Urine Nitrite Ur Leukocyte Esterase Urine RBC Urine WBC Ur Squamous Epith Cells Urine Bacteria 01/18/21 01/18/21 01/18/21 08:16 08:16 08:16 WBC 17.3 H RBC 4.99 Hgb 16.4 Hct 46.6 MCV 93.4 MCH 32.9 MCHC 35.2 RDW 12.4 Plt Count 232 MPV 9.7 Immature Gran % (Auto) Neut % (Auto) Lymph % (Auto) [place] % (Auto) Eos % (Auto) Baso % (Auto) Lymph # (Auto) [place] # (Auto) Eos # (Auto) Baso # (Auto) Abs Immat Gran (auto) Absolute Neuts (auto) Absolute Nucleated RBC 0.000 Nucleated RBC % (auto) 0.0 PT 12.7 INR 1.1 Sodium Potassium Chloride Carbon Dioxide Anion Gap BUN Creatinine Estim Creat Clear Calc Estimated GFR Random Glucose Estimat Average Glucose Hemoglobin A1c % Calcium Total Bilirubin 1.1 H Direct Bilirubin 0.5 AST 24 ALT 28 Alkaline Phosphatase 101 Troponin I High Sens Total Protein 6.3 L Albumin 4.2 Triglycerides 85 Cholesterol 164 LDL Cholesterol, Calc 108 HDL Cholesterol 39 Lipase 16 Urine Color Urine Appearance Urine pH Ur Specific [place] Urine Protein Urine Glucose (UA) Urine Ketones Urine Blood Urine Nitrite Ur Leukocyte Esterase Urine RBC Urine WBC Ur Squamous Epith Cells Urine Bacteria EKG shows normal sinus rhythm with no acute ischemic changes Imaging Radiologist's impression: Impressions Abdomen/Pelvis CT 01/18/21 00:00 IMPRESSION: * Cholelithiasis suspected. Consider right upper quadrant ultrasound if cholecystitis is a clinical possibility. * Mild dilatation of the biliary tree, without obstructive etiology identified from a CT imaging standpoint. * Incidental 1.1 cm left adrenal nodule. Consider follow-up CT adrenal mass protocol in one year, per ACR recommendations. * Prostatomegaly. Assessment and Plan (1) Elevated troponin: Status: Acute Elevated troponin elderly gentleman which is flat and nonspecific. This is not suggestive of clear rise and fall consistent with myocardial infarction. Most likely related to acute medical/surgical issue in his belly. There is no specific further workup indicated. Echocardiogram is already requested being performed at this point time. Will review it. No specific medical therapy with aspirin or IV heparin needed at this point time. Continue to manage his acute medical/surgical issue as per hospitalist/GI team. Currently patient appears to be very stable from cardiac perspective and optimized to undergo any procedure required Will sign of the case. Thank you for allowing me to partake in his care Procedures Date of Service Date of Service: 01/18/21
--- NOTE | 2021-01-18 10:36 | CONS_ITS ---
DATE OF SERVICE: 01/18/2021 REFERRING PHYSICIAN: Anthony Valdez MD REASON FOR CONSULTATION: Epigastric pain. HISTORY OF PRESENT ILLNESS: The patient is a pleasant 70-year-old man, known to me from prior evaluation. He presented to the emergency room with complaints of abdominal pain, which began yesterday in the evening without any provoking factors. The pain began in the epigastric area and is described as sharp without radiation. There was no associated nausea, vomiting, or fever, and he had no suspect food ingestions prior to the pain starting. He has not had this before. He denies a prior history of peptic ulcer disease and does not take large amounts of NSAIDs. He was evaluated in the emergency department with laboratory studies showing a white count of 16.4 and a normal hematocrit. Chemistries showed an elevation of his troponin, but normal liver function tests and lipase. Imaging studies were obtained including CT scanning of the abdomen and pelvis, which is reviewed with Dr. Rocha. This shows mild biliary ductal dilation to about 9 mm with no pancreatic head mass or obvious common duct stone. The gallbladder was noted to be distended, but no evidence of pericholecystic fat stranding was seen. PAST MEDICAL HISTORY: 1. Prostate cancer. 2. Colon polyps, last colonoscopy 10/22, five-year followup recommended. 3. Glaucoma CURRENT MEDICATIONS: His current medication list is reviewed in the chart. As an outpatient, he takes latanaprost eyedrops, aspirin 81 mg, and finasteride 5 mg daily. ALLERGIES: SULFA. FAMILY HISTORY: This is reviewed with the patient and is noncontributory. SOCIAL HISTORY: He does not smoke. He does not drink alcohol to excess. There is no drug use. REVIEW OF SYSTEMS: SKIN: No pruritus. HEENT: Negative. CARDIOPULMONARY: He denies shortness of breath or chest pain. GASTROINTESTINAL: As above. GENITOURINARY: Negative. NEUROPSYCHIATRIC: Negative. PHYSICAL EXAMINATION: GENERAL: Shows a pleasant male, lying comfortably on a stretcher. VITAL SIGNS: Reviewed in the electronic medical record and are stable. He has been afebrile. SKIN: Anicteric. HEENT: Shows no scleral icterus. NECK: Without lymphadenopathy or thyromegaly. LUNGS: Clear. HEART: Shows regular rate and rhythm. S1, S2. No murmur. ABDOMEN: Soft without focal masses or tenderness. Bowel sounds are present. No organomegaly is noted. EXTREMITIES: Without edema. LABORATORY DATA: Laboratory data and CT scanning are reviewed as above. IMPRESSION: Epigastric pain, possible causes for his epigastric pain include peptic ulcer disease, gastritis, erosive esophagitis, and gallstones, although his liver function tests are normal and no stones were seen on CT scan. His mild biliary ductal dilation is nonspecific and he has been scheduled for MRI for further evaluation. If the MRI does show stones in his common duct, he will need ERCP. If this is negative for stones, I would consider upper endoscopy for further evaluation of his epigastric pain. I agree with treating him empirically with a proton pump inhibitor and following his clinical course. Thanks for asking me to see him. I will follow him in the hospital with you. MD JANINE Orta/MONICA / [id number] MTDD
--- NOTE | 2021-01-18 10:38 | PC.NURSE ---
Pt is back from MRI, but tech stated he only tolerated half of the imaging due to claustrophobia. Pt is mildly anxious. Reassurance provided. Pt ambulated to the bathroom without difficulty. Pt states pain is manageable at this time. Pt is now getting a bedside echo. Of note, pt is booked [facility] bed rather than tele. Admitting physician is aware, no changes to be made at this time.
--- NOTE | 2021-01-18 10:48 | MHC.CM.PN ---
Attempted to meet with patient in regards to discharge planning. US currently being performed. Will attempt to meet again. Continue to monitor for d/c needs.
--- NOTE | 2021-01-18 11:09 | MHC.SHP ---
Pre-Procedural Eval Section A Date of Service: 01/18/21 The patient is an INPATIENT: Yes Changes since office visit: No Cold of Flu in the past 2 weeks, No New Medical Problems, No Changes in Medication and No Patient answered all questions The History & Physical has been completed within 30 days and I have reviewed it.: Yes Section B Chief Complaint: abdominal pain Allergies: Allergies Allergy/AdvReac Type Severity Reaction Status Date / Time Sulfa (Sulfonamide Allergy Unknown rash Verified 12/05/20 15:41 Antibiotics) Plan I have reviewed the history and physical and performed a pertinent physical examination on my patient. No changes have occurred unless specified.
[2021-01-18 11:33] LABS: COVID-19 Test Negative (Negative)
--- NOTE | 2021-01-18 11:48 | PHA.MEDREC ---
Pharmacy Consult ? Medication Reconciliation Pharmacy has completed the medication reconciliation. There are no remarkable issues for provider's attention. Mikaela García, FeliceD
--- NOTE | 2021-01-18 11:51 | PC.NURSE ---
Report given to RN in short stay. Procedure timed for 2:30pm
[2021-01-18] MEDS: Lactated Ringers 1,000 ML 50 ML IVCONT (14:02)
--- NOTE | 2021-01-18 14:25 | HO.ANESPROP2 ---
HPI - Anesthesia Eval Consult details Narrative: 70 yo male patient for EGD PMFSH Active Problems Active Problems: All Active Problems (Updated 01/18/21 @ 10:37 by Alexander Vale MD) Elevated troponin. 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 Unlikely to be cardiac related Biliary disease with obstruction (Acute) Family history of prostate cancer (Acute) Elevated PSA (Acute) Prostate cancer (Acute) Glaucoma Insomnia Past Medical History Medical History Elevated PSA Family history of prostate cancer Prostate cancer Family History Family History Father No problems noted. Mother No problems noted. Paternal Grandfather Prostate cancer Family history of problems with anesthesia: No Surgical History Surgical History History of colonoscopy History of vasectomy History of Problems with Anesthesia: No Social History Social History Household Members: Spouse Housing: House Do you presently have visiting nurse or other home services: No Alcohol intake: unknown Patient Tobacco Use Status: Former Tobacco user Quit Date: quit 35 years ago Meds Allergies Allergy/AdvReac Type Severity Reaction Status Date / Time Sulfa (Sulfonamide Allergy Unknown rash Verified 12/05/20 15:41 Antibiotics) Active Medications: Current Medications Acetaminophen (Acetaminophen 325 Mg Tablet) 650 mg PO Q6H PRN PRN Reason: Pain, Mild (Pain Scale 1-3) Finasteride (Finasteride 5 Mg Tablet) 5 mg PO DAILY [facility] Last Admin: 01/18/21 08:08 Dose: 5 mg Documented by: Hydromorphone HCl (Hydromorphone Hcl 0.5 Mg/0.5 Ml Syringe) 0.5 mg IVPUSH Q4H PRN; Protocol PRN Reason: Pain, Severe (Pain Scale 7-10) Last Admin: 01/18/21 06:51 Dose: 0.5 mg Documented by: Piperacillin Sod/Tazobactam (Sod 3.375 gm/ Sodium Chloride) 50 mls @ 100 mls/hr IV Q6H [facility] Last Infusion: 01/18/21 08:19 Dose: Infused Documented by: Dextrose/Sodium Chloride (D51/2ns) 1,000 mls @ 100 mls/hr IVCONT .Q10H [facility] Last Admin: 01/18/21 06:50 Dose: 100 mls/hr Documented by: Lactated Ringer's (Lr) 1,000 mls @ 50 mls/hr IVCONT .Q20H [facility] Last Admin: 01/18/21 14:02 Dose: 50 mls/hr Documented by: Melatonin (Melatonin 3 Mg Tablet) 6 mg PO BEDTIME PRN PRN Reason: Insomnia Omeprazole (Omeprazole 20 Mg Capsule.Dr) 20 mg PO DAILY@0630 [facility] Senna (Sennosides 8.6 Mg Tablet) 17.2 mg PO BEDTIME PRN PRN Reason: Constipation Sodium Chloride (0.9 % Sodium Chloride Flush 3 Ml Syringe) 3 ml IVFLUSH QSHIFT [facility] Last Admin: 01/18/21 07:44 Dose: Not Given Documented by: Home Medications Medication Instructions Recorded Confirmed Last Taken Type aspirin 81 mg tablet,delayed 81 mg PO DAILY 05/01/20 01/18/21 01/17/21 History release (Adult Aspirin Regimen) latanoprost 0.005 % eye drops 1 drp OPHTHALMIC-RIGHT BEDTIME 05/01/20 01/18/21 01/17/21 History Exam Exam Date and Time: January 18, 2021 1425 Height,Weight and Vital Signs: Height 5 ft 9 in Weight 80.739 kg Last Vital Signs Temp 98.7 F 01/18/21 13:46 Pulse 78 01/18/21 13:46 Resp 16 01/18/21 13:46 BP 144/83 H 01/18/21 13:46 Pulse Ox 97 01/18/21 13:46 Pertinent Lab Results Pertinent Lab Results: Laboratory Tests 01/17/21 01/17/21 01/17/21 21:56 21:56 22:33 WBC 16.4 H RBC 5.11 Hgb 16.6 Hct 48.1 MCV 94.1 MCH 32.5 MCHC 34.5 RDW 12.2 Plt Count 252 MPV 9.6 Immature Gran % (Auto) 0.5 H Neut % (Auto) 81.6 H Lymph % (Auto) 8.8 L [place] % (Auto) 7.4 Eos % (Auto) 1.5 Baso % (Auto) 0.2 Lymph # (Auto) 1.4 [place] # (Auto) 1.2 Eos # (Auto) 0.3 Baso # (Auto) 0.0 Abs Immat Gran (auto) 0.08 H Absolute Neuts (auto) 13.4 H Absolute Nucleated RBC 0.000 Nucleated RBC % (auto) 0.0 PT INR Sodium 140 Potassium 4.1 Chloride 103 Carbon Dioxide 31 H Anion Gap 10 L BUN 18 H Creatinine 0.99 Estim Creat Clear Calc 68.4 Estimated GFR > 60 Random Glucose 130 H Estimat Average Glucose Hemoglobin A1c % Calcium 9.8 Total Bilirubin 0.4 Direct Bilirubin AST 20 ALT 24 Alkaline Phosphatase 112 Troponin I High Sens Total Protein 6.9 Albumin 4.5 Triglycerides Cholesterol LDL Cholesterol, Calc HDL Cholesterol Lipase 18 Urine Color YELLOW Urine Appearance CLEAR Urine pH 6.0 Ur Specific [place] 1.025 Urine Protein NEG Urine Glucose (UA) NEG Urine Ketones NEG Urine Blood TRACE Urine Nitrite NEG Ur Leukocyte Esterase NEG Urine RBC 1-4 Urine WBC 0 Ur Squamous Epith Cells NONE Urine Bacteria TRACE COVID-19 (DANGELO) COVID-[employer] 01/17/21 01/18/21 01/18/21 23:57 01:31 08:16 WBC RBC Hgb Hct MCV MCH MCHC RDW Plt Count MPV Immature Gran % (Auto) Neut % (Auto) Lymph % (Auto) [place] % (Auto) Eos % (Auto) Baso % (Auto) Lymph # (Auto) [place] # (Auto) Eos # (Auto) Baso # (Auto) Abs Immat Gran (auto) Absolute Neuts (auto) Absolute Nucleated RBC Nucleated RBC % (auto) PT INR Sodium Potassium Chloride Carbon Dioxide Anion Gap BUN Creatinine Estim Creat Clear Calc Estimated GFR Random Glucose Estimat Average Glucose 111 Hemoglobin A1c % 5.5 Calcium Total Bilirubin Direct Bilirubin AST ALT Alkaline Phosphatase Troponin I High Sens 49.9 H* 47.6 H* Total Protein Albumin Triglycerides Cholesterol LDL Cholesterol, Calc HDL Cholesterol Lipase Urine Color Urine Appearance Urine pH Ur Specific [place] Urine Protein Urine Glucose (UA) Urine Ketones Urine Blood Urine Nitrite Ur Leukocyte Esterase Urine RBC Urine WBC Ur Squamous Epith Cells Urine Bacteria COVID-19 (DANGELO) [employer] 01/18/21 01/18/21 01/18/21 08:16 08:16 08:16 WBC 17.3 H RBC 4.99 Hgb 16.4 Hct 46.6 MCV 93.4 MCH 32.9 MCHC 35.2 RDW 12.4 Plt Count 232 MPV 9.7 Immature Gran % (Auto) Neut % (Auto) Lymph % (Auto) [place] % (Auto) Eos % (Auto) Baso % (Auto) Lymph # (Auto) [place] # (Auto) Eos # (Auto) Baso # (Auto) Abs Immat Gran (auto) Absolute Neuts (auto) Absolute Nucleated RBC 0.000 Nucleated RBC % (auto) 0.0 PT 12.7 INR 1.1 Sodium Potassium Chloride Carbon Dioxide Anion Gap BUN Creatinine Estim Creat Clear Calc Estimated GFR Random Glucose Estimat Average Glucose Hemoglobin A1c % Calcium Total Bilirubin 1.1 H Direct Bilirubin 0.5 AST 24 ALT 28 Alkaline Phosphatase 101 Troponin I High Sens Total Protein 6.3 L Albumin 4.2 Triglycerides 85 Cholesterol 164 LDL Cholesterol, Calc 108 HDL Cholesterol 39 Lipase 16 Urine Color Urine Appearance Urine pH Ur Specific [place] Urine Protein Urine Glucose (UA) Urine Ketones Urine Blood Urine Nitrite Ur Leukocyte Esterase Urine RBC Urine WBC Ur Squamous Epith Cells Urine Bacteria COVID-19 (DANGELO) COVID-19 [employer] 01/18/21 11:13 WBC RBC Hgb Hct MCV MCH MCHC RDW Plt Count MPV Immature Gran % (Auto) Neut % (Auto) Lymph % (Auto) [place] % (Auto) Eos % (Auto) Baso % (Auto) Lymph # (Auto) [place] # (Auto) Eos # (Auto) Baso # (Auto) Abs Immat Gran (auto) Absolute Neuts (auto) Absolute Nucleated RBC Nucleated RBC % (auto) PT INR Sodium Potassium Chloride Carbon Dioxide Anion Gap BUN Creatinine Estim Creat Clear Calc Estimated GFR Random Glucose Estimat Average Glucose Hemoglobin A1c % Calcium Total Bilirubin Direct Bilirubin AST ALT Alkaline Phosphatase Troponin I High Sens Total Protein Albumin Triglycerides Cholesterol LDL Cholesterol, Calc HDL Cholesterol Lipase Urine Color Urine Appearance Urine pH Ur Specific [place] Urine Protein Urine Glucose (UA) Urine Ketones Urine Blood Urine Nitrite Ur Leukocyte Esterase Urine RBC Urine WBC Ur Squamous Epith Cells Urine Bacteria COVID-19 (DANGELO) Negative COVID-19 [employer] See Note Assessment and Plan Assessment Anesthesia Assessment: Anesthesia Plan Discussed and Chart Reviewed Final Anesthetic Review Family History of Problems with Anesthesia: No History of Problems with Anesthesia: No NPO: Yes ASA Class: II Final Preanesthetic Review: No Changes in Pt Med Stat, Meds/Allgs Chart Reviewed, Consent Obtained/Reviewed and Anes Risks/Benef Reviewed Patient Risk: Low Procedure Risk: Low Assessment/Block/Sedation in SS: Assess/Block/Sedation-SS Anesthetic Plan Anesthetic Plan: MAC: Disposition: Standard PACU
--- NOTE | 2021-01-18 15:02 | MHC.CM.PN ---
CM ATTEMPTED TO MEET W/PT HOWEVER PT HAS LEFT UNIT FOR OR, IMM LEFT AT BEDSIDE FOR REVIEW ON 01/18/21 AT 3:00PM, CM WILL REVISIT.
--- NOTE | 2021-01-18 15:19 | P.BOP_ITS ---
Brief Operative Note Date of Service: 01/18/21 Pre-op diagnosis: Abdominal pain Post-op diagnosis: other (Small hiatal hernia, otherwise WNL) Procedure: EGD Surgeon: Raz Good Anesthesia: MAC Was an Locker Operator used for this Procedure?: No Estimated blood loss (mL): 0 Pathology: other Condition: stable Disposition: PACU
--- NOTE | 2021-01-18 15:20 | PM.EVENT ---
Event Note Date of Service: 01/18/21 Event Note: EGD-Full note dictated Findings: 1. Normal EGD except for a small hiatal hernia--no ulcers, gastritis, nor esophagits. No cause of his abdominal pain was found. Rec: Given the appearance of the GB on the CT and MRI, and the negative EGD, I have ordered a GB U/S to further assess for gallstones/cholecystitis. He may need a HIDA scan and/or surgery consult. Continue NPO and antibiotics in the meantime given the elevated WBC, ongoing pain, and ? of GB disease. Thanks
[2021-01-18] MEDS: Acetaminophen 325 MG TABLET 650 MG PO (17:05)
[2021-01-18] MEDS: 0.9 % Sodium Chloride Flush 3 ML SYRINGE IVFLUSH ×2 (17:42→22:24)
--- NOTE | 2021-01-18 22:51 | OP_ITS ---
SURGEON: Raz Good MD INDICATIONS: The patient presents for evaluation of abdominal pain. Full consent has been obtained from him for this, including risks of bleeding and perforation. PREOPERATIVE DIAGNOSIS: Abdominal pain. POSTOPERATIVE DIAGNOSIS: PROCEDURE PERFORMED: Esophagogastroduodenoscopy. ESTIMATED BLOOD LOSS: COMPLICATIONS: ANESTHESIA: Monitored anesthesia care. ASSISTANTS: SPECIMENS: POSTOPERATIVE DIAGNOSES: Abdominal pain, small hiatal hernia. DESCRIPTION OF PROCEDURE: The patient was placed in the left lateral decubitus position. The Olympus video gastroscope was passed in the posterior oropharynx and upper esophagus under direct vision. The scope was passed slowly into the distal esophagus. The gastroesophageal junction appeared normal at 39 cm. There was no sign of any esophagitis nor mass. The scope entered into the stomach, there was a small hiatal hernia. The scope was advanced to pylorus. The duodenum was cannulated to the descending portion. The duodenum including the bulb appeared normal without mass or ulceration. The scope was withdrawn back to the stomach. The gastric antrum and body appeared normal without mass, ulceration, nor gastritis. There was good peristalsis. The scope was retroflexed visualizing the proximal stomach carefully, which appeared normal, without any sign of mass or ulceration. The scope was straightened and withdrawn back to the esophagus. Esophageal mucosa appeared normal. Scope was withdrawn from the patient. He tolerated the procedure well and returned to recovery area in stable condition. IMPRESSION: Small hiatal hernia, otherwise normal upper endoscopy. PLAN: These minimal findings would certainly not account for the patient's abdominal pain. In reviewing his record, his CAT scan and MRI of the abdomen both described some thickening in the area of the gallbladder wall, suspicious for possible gallstones and/or cholecystitis. As such, I would recommend an abdominal ultrasound today for further evaluation of the gallbladder and if indeed this confirms the abnormal gallbladder findings, I would then recommend surgical consultation to determine whether or not he needs a cholecystectomy. In the meantime, he will continue to be n.p.o. and remain on antibiotics given the elevated white blood cell count, ongoing abdominal pain, and question of gallbladder disease. MD ESTEVAN Loo/MONICA / [id number] MTDCamron
[2021-01-19] VITALS (11 sets, daily range): BP systolic 102–141; BP diastolic 55–76; PULSE 82–101; RESP 14–18; TEMP 36.2–37.3; O2SAT 91–98
[2021-01-19] MEDS: HYDROmorphone HCl 0.5 MG/0.5 ML SYRINGE IVPUSH ×3 (03:12→17:27)
[2021-01-19] MEDS: Omeprazole 20 MG CAPSULE.DR PO (04:46)
[2021-01-19] MEDS: Piperacillin Sodium/Tazobactam 3.375 GM in 0.9 % Sodium Chloride 50 ML IV ×3 (04:46→17:27)
[2021-01-19 05:49] LABS: Basophils Percent Auto 0.3 % (0-2); Eosinophils Absolute Auto 0.3 X10*3/uL (0.0-0.4); Eosinophils Percent Auto 1.8 % (0-4); Hematocrit 47.7 % (42-52); Imm Gran Abs Auto 0.07 X10*3/uL (0.00-0.03); Imm Gran Pct Auto 0.4 % (0.0-0.4); Lymphocytes Percent Auto 6.3 % (20-40); MANUAL DIFF FLAG SCAN; Mean Corpuscular HGB Conc 33.5 g/dl (31.0-36.0); Mean Corpuscular Hemoglobin 31.7 pg (27.0-33.0); Mean Corpuscular Volume 94.6 fL (80-98); Monocytes Absolute Auto 2.2 X10*3/uL (0.1-1.2); Monocytes Percent Auto 13.8 % (2-11); Neutrophils Absolute Auto 12.2 X10*3/uL (2.0-8.3); Neutrophils Percent Auto 77.4 % (45-73); Platelet Count 221 X10*3/uL (160-400); Red Blood Count 5.04 X10*6/uL (4.60-5.80); Red Cell Distribution Width 12.7 % (11.0-16.0); SCAN SMEAR FLAG 1; White Blood Count 15.8 X10*3/uL (4.8-10.8)
[2021-01-19 05:56] LABS: SLIDE REVIEW VERIFIED
[2021-01-19 06:12] LABS: Anion Gap 12 (12-20); Blood Urea Nitrogen 10 mg/dL (9-16); Calcium 8.9 mg/dL (8.4-10.2); Carbon Dioxide 27 mmol/L (22-29); Chloride 104 mmol/L (96-108); Creatinine Clr Calc Pharmacy 84.6; Estimated Glomerular Filt Rate > 60; Glucose Random 105 mg/dL (60-115); Potassium 4.1 mmol/L (3.3-5.1); Sodium 139 mmol/L (135-145)
--- NOTE | 2021-01-19 07:50 | PM.CNGS ---
History of Present Illness Consult details Consult date: 01/19/21 Reason for consult: abdominal pain Requesting physician: Jasmeet Connell Narrative: 70-year-old male patient presenting with complaints of abdominal pain in the epigastrium and right upper quadrant. Pain began yesterday approximately 4 hours after eating ham in a eggs. He denies a previous history of similar pain. Pain was described as sharp with radiation to the back, 12/10 in severity. When the pain did not improve he presented to the emergency department for further evaluation. He was noted to be tender in the right upper quadrant. Workup included CT of the abdomen pelvis, ultrasound the abdomen, and upper endoscopy. In addition the patient attempted an MRCP although he began claustrophobic could not complete the study. Radiologic studies seemed indicate gallstones within the gallbladder with thickened gallbladder wall. Findings are suggestive of acute cholecystitis due to cholelithiasis. He continues to have abdominal pain this morning although somewhat improved. He denies fever or chills but does feel nauseous. Review of Systems Review of Systems: Yes all other systems are reviewed and are negative Constitutional: Constitutional: Reports anorexia, Denies chills, Denies fever(s) and Reports poor appetite Cardiovascular: Cardiovascular: Denies chest pain, Reports epigastric discomfort, Denies irregular heart rhythm and Denies dyspnea Respiratory: Respiratory: Denies cough, Denies hemoptysis and Denies dyspnea Gastrointestinal: Gastrointestinal: Reports as per HPI Genitourinary: Comments: Previous prostate biopsy [facility] Past Medical History Medical History Elevated PSA Family history of prostate cancer Prostate cancer Family History Family History Father No problems noted. Mother No problems noted. Paternal Grandfather Prostate cancer Surgical History Surgical History History of colonoscopy History of vasectomy Social History Social History Household Members: Spouse Housing: House Do you presently have visiting nurse or other home services: No Alcohol intake: unknown Patient Tobacco Use Status: Former Tobacco user Quit Date: quit 35 years ago Meds Allergies Allergy/AdvReac Type Severity Reaction Status Date / Time Sulfa (Sulfonamide Allergy Unknown rash Verified 12/05/20 15:41 Antibiotics) Active Medications: Current Medications Acetaminophen (Acetaminophen 325 Mg Tablet) 650 mg PO Q6H PRN PRN Reason: Pain, Mild (Pain Scale 1-3) Last Admin: 01/18/21 17:05 Dose: 650 mg Documented by: Finasteride (Finasteride 5 Mg Tablet) 5 mg PO DAILY [facility] Last Admin: 01/18/21 08:08 Dose: 5 mg Documented by: Hydromorphone HCl (Hydromorphone Hcl 0.5 Mg/0.5 Ml Syringe) 0.5 mg IVPUSH Q4H PRN; Protocol PRN Reason: Pain, Severe (Pain Scale 7-10) Last Admin: 01/19/21 03:12 Dose: 0.5 mg Documented by: Dextrose/Sodium Chloride (D51/2ns) 1,000 mls @ 100 mls/hr IVCONT .Q10H [facility] Last Infusion: 01/19/21 05:39 Dose: 100 mls/hr Documented by: Lactated Ringer's (Lr) 1,000 mls @ 50 mls/hr IVCONT .Q20H [facility] Last Infusion: 01/19/21 04:54 Dose: Infused Documented by: Lactated Ringer's (Lr) 1,000 mls @ 100 mls/hr IVCONT .Q10H [facility] Last Admin: 01/18/21 22:24 Dose: Not Given Documented by: Piperacillin Sod/Tazobactam (Sod 3.375 gm/ Sodium Chloride) 50 mls @ 100 mls/hr IV Q6H [facility] Last Infusion: 01/19/21 05:36 Dose: Infused Documented by: Cefotetan Disodium 2 gm/ (Sodium Chloride) 50 mls @ 100 mls/hr IV PREOP ONE Stop: 01/19/21 08:17 Latanoprost (Latanoprost 0.005 % Ophth Claudine 2.5 Ml Drops) 1 drop EYE-RIGHT BEDTIME [facility] Last Admin: 01/19/21 03:48 Dose: Not Given Documented by: Melatonin (Melatonin 3 Mg Tablet) 6 mg PO BEDTIME PRN PRN Reason: Insomnia Omeprazole (Omeprazole 20 Mg Capsule.) 20 mg PO DAILY@0630 [facility] Last Admin: 01/19/21 04:46 Dose: 20 mg Documented by: Ondansetron HCl (Ondansetron Hcl 4 Mg/2 Ml Vial) 4 mg IVPUSH ONCE PRN PRN Reason: Nausea and Vomiting Senna (Sennosides 8.6 Mg Tablet) 17.2 mg PO BEDTIME PRN PRN Reason: Constipation Sodium Chloride (0.9 % Sodium Chloride Flush 3 Ml Syringe) 3 ml IVFLUSH [facility] Last Admin: 01/18/21 22:24 Dose: 3 ml Documented by: Home Medications Medication Instructions Recorded Confirmed Last Taken Type aspirin 81 mg tablet,delayed 81 mg PO DAILY 05/01/20 01/18/21 01/17/21 History release (Adult Aspirin Regimen) latanoprost 0.005 % eye drops 1 drp OPHTHALMIC-RIGHT BEDTIME 05/01/20 01/18/21 01/17/21 History Physical Exam Vital Signs: Vital Signs: Last Vital Signs Temp 99.1 F 01/19/21 03:32 Pulse 83 01/19/21 03:32 Resp 18 01/19/21 03:32 BP 135/71 01/19/21 03:32 Pulse Ox 95 01/19/21 03:32 Body Mass Index 26.2 Const: General: cooperative, ill appearing and tired appearing Nutritional Appearance: well nourished Orientation/consciousness: patient oriented x3 Limitations: no limitations HENMT: Head: Yes normocephalic and Yes atraumatic Ears: hearing grossly normal bilaterally Eyes: Sclerae: sclerae normal EOM: EOMs intact bilaterally Resp: Effort & Inspection: normal respiratory effort, no cough, not labored and no stridor Cardio: Jugular venous distension: no JVD Rate: regular rate Rhythm: regular rhythm GI: Inspection: Yes normal to inspection and No distended Palpation (GI): Soft to palpation, Tenderness to palpation present (GI) in the epigastrum, in the RUQ and Matt's sign positive and No hepatosplenomegaly present Percussion: Yes normal to percussion Auscultation: normal bowel sounds Rectal Exam - Male: Yes deferred Skin: Other: warm, dry, no rash, no jaundice Neuro: General: patient oriented x3 Extrem: General: Yes no clubbing, cyanosis or edema Results Labs Result diagrams: 01/19/21 05:22 01/19/21 05:22 Labs: Abnormal lab results 01/18/21 01/18/21 01/19/21 Range/Units 08:16 08:16 05:22 WBC 17.3 H 15.8 H (4.8-10.8) X10*3/uL Neut % (Auto) 77.4 H (45-73) % Lymph % (Auto) 6.3 L (20-40) % [place] % (Auto) 13.8 H (2-11) % Lymph # (Auto) 1.0 L (1.2-4.9) X10*3/uL [place] # (Auto) 2.2 H (0.1-1.2) X10*3/uL Abs Immat Gran (auto) 0.07 H (0.00-0.03) X10*3/uL Absolute Neuts (auto) 12.2 H (2.0-8.3) X10*3/uL Total Bilirubin 1.1 H (0.0-1.0) mg/dL Total Protein 6.3 L (6.5-8.0) g/dL Short CBC 01/18/21 01/19/21 Range/Units 08:16 05:22 WBC 17.3 H 15.8 H (4.8-10.8) X10*3/uL Hgb 16.4 16.0 (14.0-18.0) g/dl Hct 46.6 47.7 (42-52) % Plt Count 232 221 (160-400) X10*3/uL BMP 01/19/21 05:22 Sodium 139 Potassium 4.1 Chloride 104 Carbon Dioxide 27 BUN 10 Creatinine 0.80 Calcium 8.9 D Liver Function 01/18/21 Range/Units 08:16 Total Bilirubin 1.1 H (0.0-1.0) mg/dL Direct Bilirubin 0.5 (0.0-0.5) mg/dL AST 24 (5-37) U/L ALT 28 (0-40) U/L Alkaline Phosphatase 101 (39-117) U/L Albumin 4.2 (3.5-5.0) g/dL Urine 01/17/21 Range/Units 22:33 Urine Color YELLOW Urine Appearance CLEAR Urine pH 6.0 (5.0-8.0) Ur Specific [place] 1.025 (1.005-1.025) Urine Protein NEG (NEG-TRACE) MG/DL Urine Glucose (UA) NEG (NEG) MG/DL All other labs normal. Assessment and Plan (1) Cholecystitis, acute with cholelithiasis: Status: Acute 70-year-old male patient with a new onset episode of abdominal pain in the right upper quadrant starting after eating ham and eggs. He denies a previous episode of similar symptoms. Wound up reveals tenderness in the right upper quadrant with a positive Matt sign. WBC is elevated and CT/ultrasound indicate thickened gallbladder wall with gallstones suggestive of acute cholecystitis. I recommended a laparoscopic or possible open cholecystectomy. After discussion of the procedure, risks, and alternatives, he consents to the surgery. He has been added onto the operative schedule for today. He has been made NPO in preparation for the surgery. Procedures Date of Service Date of Service: 01/19/21
[2021-01-19] MEDS: Lactated Ringers 1,000 ML 100 ML IVCONT ×2 (08:54→13:42)
--- NOTE | 2021-01-19 10:46 | P.PNIM_ITS ---
Subjective Subjective Date of Service: 01/19/21 Interval History: Seen in f/u for abdominal pain, gallstone, has persistent pain and is going for CCY today Review of Systems No fever Abd pain no n/v Physical Exam Vital Signs: Vital Signs: Last Vital Signs Temp 98.0 F 01/19/21 07:51 Pulse 88 01/19/21 07:51 Resp 18 01/19/21 07:51 BP 141/69 H 01/19/21 07:51 Pulse Ox 98 01/19/21 07:51 Body Mass Index 26.2 General: AO X 3, no acute distress Resp: CTA bilateral CVS: S1,S2,RRR GI: +BS, RUQ T, no distention Skin: No rash Neuro: motor grossly intact Psych: appropriate affect Objective Data Active Medications Acetaminophen (Acetaminophen 325 Mg Tablet) 650 mg PO Q6H PRN PRN Reason: Pain, Mild (Pain Scale 1-3) Last Admin: 01/18/21 17:05 Dose: 650 mg Documented by: DESHAWN Finasteride (Finasteride 5 Mg Tablet) 5 mg PO DAILY [facility] Last Admin: 01/19/21 09:00 Dose: Not Given Documented by: CHARLA Non-Admin Reason: NPO Hydromorphone HCl (Hydromorphone Hcl 0.5 Mg/0.5 Ml Syringe) 0.5 mg IVPUSH Q4H PRN; Protocol PRN Reason: Pain, Severe (Pain Scale 7-10) Last Admin: 01/19/21 08:55 Dose: 0.5 mg Documented by: CHARLA Dextrose/Sodium Chloride (D51/2ns) 1,000 mls @ 100 mls/hr IVCONT .Q10H [facility] Last Infusion: 01/19/21 05:39 Dose: 100 mls/hr Documented by: CASTILM Lactated Ringer's (Lr) 1,000 mls @ 50 mls/hr IVCONT .Q20H [facility] Last Infusion: 01/19/21 04:54 Dose: 0 mls/hr Documented by: CASTILM Lactated Ringer's (Lr) 1,000 mls @ 100 mls/hr IVCONT .Q10H [facility] Last Admin: 01/19/21 08:54 Dose: 100 mls/hr Documented by: CHARLA Piperacillin Sod/Tazobactam (Sod 3.375 gm/ Sodium Chloride) 50 mls @ 100 mls/hr IV Q6H [facility] Last Infusion: 01/19/21 05:36 Dose: 0 mls/hr Documented by: SEKOU Latanoprost (Latanoprost 0.005 % Ophth Claudine 2.5 Ml Drops) 1 drop EYE-RIGHT BEDTIME [facility] Last Admin: 01/19/21 03:48 Dose: Not Given Documented by: RYAN Non-Admin Reason: Med Not Available Melatonin (Melatonin 3 Mg Tablet) 6 mg PO BEDTIME PRN PRN Reason: Insomnia Omeprazole (Omeprazole 20 Mg Capsule.Dr) 20 mg PO DAILY@0630 [facility] Last Admin: 01/19/21 04:46 Dose: 20 mg Documented by: SEKOU Ondansetron HCl (Ondansetron Hcl 4 Mg/2 Ml Vial) 4 mg IVPUSH ONCE PRN PRN Reason: Nausea and Vomiting Senna (Sennosides 8.6 Mg Tablet) 17.2 mg PO BEDTIME PRN PRN Reason: Constipation Sodium Chloride (0.9 % Sodium Chloride Flush 3 Ml Syringe) 3 ml IVFLUSH QSHIFT [facility] Last Admin: 01/19/21 09:00 Dose: Not Given Documented by: CHARLA Non-Admin Reason: IV Running Labs CBC & Chem 7: 01/19/21 05:22 01/19/21 05:22 Labs: Laboratory Results - last 24 hr 01/18/21 01/19/21 01/19/21 11:13 05:22 05:22 MCV 94.6 MCH 31.7 MCHC 33.5 RDW 12.7 Plt Count 221 MPV 10.0 Immature Gran % (Auto) 0.4 Neut % (Auto) 77.4 H Lymph % (Auto) 6.3 L [place] % (Auto) 13.8 H Eos % (Auto) 1.8 Baso % (Auto) 0.3 Lymph # (Auto) 1.0 L [place] # (Auto) 2.2 H Eos # (Auto) 0.3 Baso # (Auto) 0.0 Abs Immat Gran (auto) 0.07 H Absolute Neuts (auto) 12.2 H Absolute Nucleated RBC 0.000 Nucleated RBC % (auto) 0.0 Smear Tech's Comments VERIFIED Anion Gap 12 Estim Creat Clear Calc 84.6 Estimated GFR > 60 Random Glucose 105 Calcium 8.9 D COVID-19 (DANGELO) Negative COVID-19 Clin Com See Note Microbiology Microbiology Results: Microbiology 01/18/21 01:31 Blood Culture - Preliminary Blood - Venous No growth after 24 hours. 01/18/21 01:31 Blood Culture - Preliminary Blood - Venous No growth after 24 hours. Assessment and Plan (1) Biliary disease with obstruction: Status: Acute (2) Elevated troponin: Status: Acute (3) Cholecystitis, acute with cholelithiasis: Status: Acute Assessment and Plan: 70-year-old male with a past medical history of BPH presented to the hospital with a chief complaint of upper abdominal pain.? Noted to have intrahepatic and extrahepatic biliary ductal dilatation. Acute cholecystitis with peristent RUQ, + hernandez, elevated WBC/ -continue Zosyn -cholecystectomy by Dr. Alexandre today. -preop eval done by Dr. Vale (cardiology) Indeterminate troponin I level without change. No evidence of ACS. No further testing at this time. History of BPH:? Continue home finasteride. H/o Glaucoma--Ltanoprost Quality Stroke Does the patient have a stroke diagnosis?: No VTE Prior VTE?: No VTE Risk Level:: Medical - low VTE Device Contraindication: N/A - Device Ordered VTE Drug Contraindication: Treatment Not Indicated
--- NOTE | 2021-01-19 13:31 | P.CONAN_ITS ---
HPI - Anesthesia Eval Consult details Narrative: 70 yo male patient for laparoscopic cholecystectomy PMFSH Active Problems Active Problems: All Active Problems (Updated 01/19/21 @ 07:58 by Rashid del rio MD) Cholecystitis, acute with cholelithiasis (Acute) Elevated troponin. Seen by baby registry sales consultant. Unlikely to be cardiac- related Biliary disease with obstruction (Acute) Family history of prostate cancer (Acute) Elevated PSA (Acute) Prostate cancer (Acute) Glaucoma Insomnia Past Medical History Medical History Elevated PSA Family history of prostate cancer Prostate cancer Family History Family History Father No problems noted. Mother No problems noted. Paternal Grandfather Prostate cancer Family history of problems with anesthesia: No Surgical History Surgical History History of colonoscopy History of vasectomy History of Problems with Anesthesia: No Social History Social History Household Members: Spouse Housing: House Do you presently have visiting nurse or other home services: No Alcohol intake: unknown Patient Tobacco Use Status: Former Tobacco user Quit Date: quit 35 years ago service: Yes Current occupational status: retired [employer] Allergies Allergy/AdvReac Type Severity Reaction Status Date / Time Sulfa (Sulfonamide Allergy Unknown rash Verified 01/19/21 13:38 Antibiotics) Active Medications: Current Medications Acetaminophen (Acetaminophen 325 Mg Tablet) 650 mg PO Q6H PRN PRN Reason: Pain, Mild (Pain Scale 1-3) Last Admin: 01/18/21 17:05 Dose: 650 mg Documented by: Finasteride (Finasteride 5 Mg Tablet) 5 mg PO DAILY [facility] Last Admin: 01/19/21 09:00 Dose: Not Given Documented by: Hydromorphone HCl (Hydromorphone Hcl 0.5 Mg/0.5 Ml Syringe) 0.5 mg IVPUSH Q4H PRN; Protocol PRN Reason: Pain, Severe (Pain Scale 7-10) Last Admin: 01/19/21 08:55 Dose: 0.5 mg Documented by: Dextrose/Sodium Chloride (D51/2ns) 1,000 mls @ 100 mls/hr IVCONT .Q10H [facility] Last Infusion: 01/19/21 05:39 Dose: 100 mls/hr Documented by: Lactated Ringer's (Lr) 1,000 mls @ 50 mls/hr IVCONT .Q20H [facility] Last Admin: 01/19/21 11:07 Dose: Not Given Documented by: Lactated Ringer's (Lr) 1,000 mls @ 100 mls/hr IVCONT .Q10H [facility] Last Admin: 01/19/21 08:54 Dose: 100 mls/hr Documented by: Piperacillin Sod/Tazobactam (Sod 3.375 gm/ Sodium Chloride) 50 mls @ 100 mls/hr IV Q6H [facility] Last Admin: 01/19/21 12:03 Dose: 100 mls/hr Documented by: Latanoprost (Latanoprost 0.005 % Ophth Claudine 2.5 Ml Drops) 1 drop EYE-RIGHT BEDTIME [facility] Last Admin: 01/19/21 03:48 Dose: Not Given Documented by: Melatonin (Melatonin 3 Mg Tablet) 6 mg PO BEDTIME PRN PRN Reason: Insomnia Omeprazole (Omeprazole 20 Mg Capsule.Dr) 20 mg PO DAILY@0630 [facility] Last Admin: 01/19/21 04:46 Dose: 20 mg Documented by: Ondansetron HCl (Ondansetron Hcl 4 Mg/2 Ml Vial) 4 mg IVPUSH ONCE PRN PRN Reason: Nausea and Vomiting Senna (Sennosides 8.6 Mg Tablet) 17.2 mg PO BEDTIME PRN PRN Reason: Constipation Sodium Chloride (0.9 % Sodium Chloride Flush 3 Ml Syringe) 3 ml IVFLUSH QSHIFT [facility] Last Admin: 01/19/21 09:00 Dose: Not Given Documented by: Home Medications Medication Instructions Recorded Confirmed Last Taken Type aspirin 81 mg tablet,delayed 81 mg PO DAILY 05/01/20 01/18/21 01/17/21 History release (Adult Aspirin Regimen) latanoprost 0.005 % eye drops 1 drp OPHTHALMIC-RIGHT BEDTIME 05/01/20 01/18/21 01/17/21 History Exam Exam Date and Time: January 19, 2021 1331 Height,Weight and Vital Signs: Height 5 ft 9 in Weight 80.739 kg Last Vital Signs Temp 98.1 F 01/19/21 11:44 Pulse 89 01/19/21 11:44 Resp 18 01/19/21 11:44 BP 102/55 L 01/19/21 11:44 Pulse Ox 94 01/19/21 11:44 Vital Signs Temp Pulse Resp BP Pulse Ox 01/19/21 13:45 98.9 F 92 16 124/69 95 01/19/21 11:44 98.1 F 89 18 102/55 L 94 01/19/21 07:51 98.0 F 88 18 141/69 H 98 01/19/21 03:32 99.1 F 83 18 135/71 95 01/18/21 23:58 98.2 F 80 18 120/68 93 01/18/21 19:50 98.2 F 83 18 140/79 H 94 01/18/21 16:42 98.7 F 86 18 145/75 H 96 01/18/21 15:47 97.1 F 82 17 125/75 96 01/18/21 15:32 80 18 115/77 95 01/18/21 15:17 97.1 F 88 12 107/71 97 Pertinent Lab Results Pertinent Lab Results: Laboratory Tests 01/17/21 01/17/21 01/17/21 21:56 21:56 22:33 WBC 16.4 H RBC 5.11 Hgb 16.6 Hct 48.1 MCV 94.1 MCH 32.5 MCHC 34.5 RDW 12.2 Plt Count 252 MPV 9.6 Immature Gran % (Auto) 0.5 H Neut % (Auto) 81.6 H Lymph % (Auto) 8.8 L [place] % (Auto) 7.4 Eos % (Auto) 1.5 Baso % (Auto) 0.2 Lymph # (Auto) 1.4 [place] # (Auto) 1.2 Eos # (Auto) 0.3 Baso # (Auto) 0.0 Abs Immat Gran (auto) 0.08 H Absolute Neuts (auto) 13.4 H Absolute Nucleated RBC 0.000 Nucleated RBC % (auto) 0.0 Smear Tech's Comments PT INR Sodium 140 Potassium 4.1 Chloride 103 Carbon Dioxide 31 H Anion Gap 10 L BUN 18 H Creatinine 0.99 Estim Creat Clear Calc 68.4 Estimated GFR > 60 Random Glucose 130 H Estimat Average Glucose Hemoglobin A1c % Calcium 9.8 Total Bilirubin 0.4 Direct Bilirubin AST 20 ALT 24 Alkaline Phosphatase 112 Troponin I High Sens Total Protein 6.9 Albumin 4.5 Triglycerides Cholesterol LDL Cholesterol, Calc HDL Cholesterol Lipase 18 Urine Color YELLOW Urine Appearance CLEAR Urine pH 6.0 Ur Specific [place] 1.025 Urine Protein NEG Urine Glucose (UA) NEG Urine Ketones NEG Urine Blood TRACE Urine Nitrite NEG Ur Leukocyte Esterase NEG Urine RBC 1-4 Urine WBC 0 Ur Squamous Epith Cells NONE Urine Bacteria TRACE COVID-19 ([facility]) COVID-19 Clin Com 01/17/21 01/18/21 01/18/21 23:57 01:31 08:16 WBC RBC Hgb Hct MCV MCH MCHC RDW Plt Count MPV Immature Gran % (Auto) Neut % (Auto) Lymph % (Auto) [place] % (Auto) Eos % (Auto) Baso % (Auto) Lymph # (Auto) [place] # (Auto) Eos # (Auto) Baso # (Auto) Abs Immat Gran (auto) Absolute Neuts (auto) Absolute Nucleated RBC Nucleated RBC % (auto) Smear Tech's Comments PT INR Sodium Potassium Chloride Carbon Dioxide Anion Gap BUN Creatinine Estim Creat Clear Calc Estimated GFR Random Glucose Estimat Average Glucose 111 Hemoglobin A1c % 5.5 Calcium Total Bilirubin Direct Bilirubin AST ALT Alkaline Phosphatase Troponin I High Sens 49.9 H* 47.6 H* Total Protein Albumin Triglycerides Cholesterol LDL Cholesterol, Calc HDL Cholesterol Lipase Urine Color Urine Appearance Urine pH Ur Specific [place] Urine Protein Urine Glucose (UA) Urine Ketones Urine Blood Urine Nitrite Ur Leukocyte Esterase Urine RBC Urine WBC Ur Squamous Epith Cells Urine Bacteria COVID-19 (DANGELO) COVID-19 Clin Com 01/18/21 01/18/21 01/18/21 08:16 08:16 08:16 WBC 17.3 H RBC 4.99 Hgb 16.4 Hct 46.6 MCV 93.4 MCH 32.9 MCHC 35.2 RDW 12.4 Plt Count 232 MPV 9.7 Immature Gran % (Auto) Neut % (Auto) Lymph % (Auto) [place] % (Auto) Eos % (Auto) Baso % (Auto) Lymph # (Auto) [place] # (Auto) Eos # (Auto) Baso # (Auto) Abs Immat Gran (auto) Absolute Neuts (auto) Absolute Nucleated RBC 0.000 Nucleated RBC % (auto) 0.0 Smear Tech's Comments PT 12.7 INR 1.1 Sodium Potassium Chloride Carbon Dioxide Anion Gap BUN Creatinine Estim Creat Clear Calc Estimated GFR Random Glucose Estimat Average Glucose Hemoglobin A1c % Calcium Total Bilirubin 1.1 H Direct Bilirubin 0.5 AST 24 ALT 28 Alkaline Phosphatase 101 Troponin I High Sens Total Protein 6.3 L Albumin 4.2 Triglycerides 85 Cholesterol 164 LDL Cholesterol, Calc 108 HDL Cholesterol 39 Lipase 16 Urine Color Urine Appearance Urine pH Ur Specific [place] Urine Protein Urine Glucose (UA) Urine Ketones Urine Blood Urine Nitrite Ur Leukocyte Esterase Urine RBC Urine WBC Ur Squamous Epith Cells Urine Bacteria COVID-19 ([facility]EL[facility]) COVID-19 Clin Com 01/18/21 01/19/21 01/19/21 11:13 05:22 05:22 WBC 15.8 H RBC 5.04 Hgb 16.0 Hct 47.7 MCV 94.6 MCH 31.7 MCHC 33.5 RDW 12.7 Plt Count 221 MPV 10.0 Immature Gran % (Auto) 0.4 Neut % (Auto) 77.4 H Lymph % (Auto) 6.3 L [place] % (Auto) 13.8 H Eos % (Auto) 1.8 Baso % (Auto) 0.3 Lymph # (Auto) 1.0 L [place] # (Auto) 2.2 H Eos # (Auto) 0.3 Baso # (Auto) 0.0 Abs Immat Gran (auto) 0.07 H Absolute Neuts (auto) 12.2 H Absolute Nucleated RBC 0.000 Nucleated RBC % (auto) 0.0 Smear Tech's Comments VERIFIED PT INR Sodium 139 Potassium 4.1 Chloride 104 Carbon Dioxide 27 Anion Gap 12 BUN 10 Creatinine 0.80 Estim Creat Clear Calc 84.6 Estimated GFR > 60 Random Glucose 105 Estimat Average Glucose Hemoglobin A1c % Calcium 8.9 D Total Bilirubin Direct Bilirubin AST ALT Alkaline Phosphatase Troponin I High Sens Total Protein Albumin Triglycerides Cholesterol LDL Cholesterol, Calc HDL Cholesterol Lipase Urine Color Urine Appearance Urine pH Ur Specific [place] Urine Protein Urine Glucose (UA) Urine Ketones Urine Blood Urine Nitrite Ur Leukocyte Esterase Urine RBC Urine WBC Ur Squamous Epith Cells Urine Bacteria COVID-19 ([facility]ELO) Negative COVID-19 Clin Com See Note Airway Mallampati Class: II TM Dist: >3cm Neck ROM: Full Denture: Upper Heart: RRR Lungs: CTAB Assessment and Plan Assessment Anesthesia Assessment: Anesthesia Plan Discussed and Chart Reviewed Final Anesthetic Review Family History of Problems with Anesthesia: No History of Problems with Anesthesia: No NPO: Yes ASA Class: II Final Preanesthetic Review: No Changes in Pt Med Stat, Meds/Allgs Chart Reviewed, Consent Obtained/Reviewed and Anes Risks/Benef Reviewed Patient Risk: Low Procedure Risk: Low Assessment/Block/Sedation in SS: Assess/Block/Sedation-SS Anesthetic Plan Anesthetic Plan: GA Disposition: Standard PACU
--- NOTE | 2021-01-19 13:40 | MHC.SHP ---
Pre-Procedural Eval Section A Date of Service: 01/19/21 The patient is an INPATIENT: Yes Section B Chief Complaint: abdominal pain Allergies: Allergies Allergy/AdvReac Type Severity Reaction Status Date / Time Sulfa (Sulfonamide Allergy Unknown rash Verified 01/19/21 13:38 Antibiotics) Plan I have reviewed the history and physical and performed a pertinent physical examination on my patient. No changes have occurred unless specified.
--- NOTE | 2021-01-19 15:42 | P.OP_ITS ---
Operative Note Operative Note Date of Service: 01/19/21 Narrative: Preoperative diagnosis: acute cholecystitis cholelithiasis Postoperative diagnosis: Same Procedure: Laparoscopic cholecystectomy Surgeon: Rashid Alexandre MD Steamer Operator: ALYSIA Ga Anesthesia: General endotracheal Indications for procedure: 70-year-old male patient presenting with complaints of abdominal pain in the right upper quadrant of 24 hours duration. Patient was found to have a thickened, intrahepatic gallbladder with multiple gallstones within the gallbladder by CT and ultrasound. Operative findings: Markedly inflamed gallbladder with thickened gallbladder wall, tensely distended, gangrenous gallbladder wall Specimen: gallbladder Estimated blood loss: 20 mL Complications: none Procedure details: Patient was brought to the OR and placed in a supine position. After administering general anesthesia the patient's abdomen was prepped with ChloraPrep and draped in a sterile fashion. Local anesthesia consisting of 0.5% Sensorcaine without epinephrine was infiltrated in a periumbilical region. A 5 mm incision was made above the umbilicus in a transverse fashion. The Veress needle was then inserted while elevating abdominal cavity with towel clips. After positive drop test the abdomen was insufflated to a pressure of 15 mm of mercury. The Veress needle was then removed and a 5 mm trocar inserted. The camera was inserted in the abdomen explored. A 12 mm trocar was then placed in the epigastrium and two 5 mm trocars placed in the right upper quadrant. The patient was placed in reverse Trendelenburg positioning and rotated to the left. The gallbladder was grasped with the fundus and retracted cephalad.. The infundibulum was then grasped and retracted away from the liver bed. The Dolphin dissected was then used to dissect the peritoneum off the infundibulum to reveal the junction with the cystic duct. Cystic artery was noted slightly medial and posterior to the cystic duct. After obtaining a critical view the cystic duct was doubly clipped and divided. The cystic artery was then doubly clipped and divided. The gallbladder was then dissected off the liver bed using electrocautery with an L hook. Hemostasis was assured all times using the electrocautery. When the gallbladder is completely dissected off the liver bed was placed in an Endo- Catch bag and brought out through the epigastric incision. The gallbladder was sent to pathology for further examination. The abdomen was then re-examined. The liver bed was irrigated and suctioned dry. No bleeding or bile leak could be identified. CO2 was then evacuated and all trocars removed. Fascia was closed at the epigastric incision using a [id number] 0 Polysorb suture. Skin was closed in all incisions using a subcuticular 4 0 Polysorb suture. Sterile dressings consisting of Steri-Strips, 2 x 2 gauze, and Tegaderm were then applied. The patient tolerated the procedure well. Sponge instrument and needle counts reported as correct. The patient was transferred to PACU in stable condition.
--- NOTE | 2021-01-19 16:59 | HO.POSTANES ---
Post Anesthesia Evaluation Post Anesthesia Evaluation Vital Signs: Vital Signs Temp Pulse Resp BP Pulse Ox 01/19/21 16:19 97.8 F 01/19/21 16:18 101 H 16 131/76 94 01/19/21 16:05 99 16 138/72 93 01/19/21 16:00 100 16 128/71 93 01/19/21 15:55 90 14 132/76 91 L 01/19/21 15:50 98.9 F 97 14 138/73 96 01/19/21 13:45 98.9 F 92 16 124/69 95 01/19/21 11:44 98.1 F 89 18 102/55 L 94 01/19/21 07:51 98.0 F 88 18 141/69 H 98 Anesthesia: Monitored Mental Status: Awake Pain Control: Satisfactory Nausea/Vomiting: None Hydration: Adequate Anesthesia-Related Issues: No Anes. Related Issues
[2021-01-19] MEDS: 0.9 % Sodium Chloride Flush 3 ML SYRINGE IVFLUSH (17:27)
[2021-01-19] MEDS: Dextrose 5 % and 0.45 % NaCl 1,000 ML 100 ML IVCONT (17:28)
[2021-01-19] MEDS: Latanoprost 0.005 % Ophth Sol 2.5 ML DROPS 1 DROP EYE-RIGHT (20:13)
[2021-01-19] MEDS: oxyCODONE HCl Immed Release 5 MG TABLET PO (20:35)
[2021-01-20] VITALS (7 sets, daily range): BP systolic 109–135; BP diastolic 56–69; PULSE 69–85; RESP 16–18; TEMP 36.2–36.9; O2SAT 93–95
[2021-01-20] MEDS: HYDROmorphone HCl 0.5 MG/0.5 ML SYRINGE IVPUSH (00:04)
[2021-01-20] MEDS: Piperacillin Sodium/Tazobactam 3.375 GM in 0.9 % Sodium Chloride 50 ML IV ×5 (00:05→23:06)
[2021-01-20] MEDS: 0.9 % Sodium Chloride Flush 3 ML SYRINGE IVFLUSH ×2 (00:47→23:06)
[2021-01-20] MEDS: Dextrose 5 % and 0.45 % NaCl 1,000 ML 100 ML IVCONT ×2 (04:36→21:46)
[2021-01-20 04:47] LABS: Basophils Percent Auto 0.1 % (0-2); Hematocrit 43.5 % (42-52); Imm Gran Abs Auto 0.12 X10*3/uL (0.00-0.03); Imm Gran Pct Auto 0.6 % (0.0-0.4); Lymphocytes Absolute Auto 0.5 X10*3/uL (1.2-4.9); Lymphocytes Percent Auto 2.4 % (20-40); MANUAL DIFF FLAG SCAN; Mean Corpuscular HGB Conc 34.5 g/dl (31.0-36.0); Mean Corpuscular Hemoglobin 32.8 pg (27.0-33.0); Mean Platelet Volume 10.3 fL (9.4-12.4); Monocytes Absolute Auto 2.1 X10*3/uL (0.1-1.2); Monocytes Percent Auto 10.1 % (2-11); Neutrophils Absolute Auto 18.4 X10*3/uL (2.0-8.3); Neutrophils Percent Auto 86.8 % (45-73); Platelet Count 234 X10*3/uL (160-400); Red Blood Count 4.58 X10*6/uL (4.60-5.80); Red Cell Distribution Width 12.5 % (11.0-16.0); SCAN SMEAR FLAG 1; White Blood Count 21.2 X10*3/uL (4.8-10.8)
[2021-01-20 05:05] LABS: SLIDE REVIEW VERIFIED
[2021-01-20 05:09] LABS: Anion Gap 15 (12-20); Blood Urea Nitrogen 14 mg/dL (9-16); Calcium 8.9 mg/dL (8.4-10.2); Carbon Dioxide 24 mmol/L (22-29); Chloride 105 mmol/L (96-108); Creatinine Clr Calc Pharmacy 80.6; Estimated Glomerular Filt Rate > 60; Glucose Random 149 mg/dL (60-115); Sodium 140 mmol/L (135-145)
[2021-01-20] MEDS: Omeprazole 20 MG CAPSULE.DR PO (06:24)
--- NOTE | 2021-01-20 09:03 | HO.PM.IMPN ---
Subjective Subjective Date of Service: 01/20/21 Interval History: Seen in f/u for cholecystitis/cholelithiasis, status post cholecystectomy on January 19 and noted to have gangrenous gallbladder. He feels better this morning has some residual pain, no fever yet WBC has gone up to 21,000. He is passing gas, no bowel movement yet. Tolerated regular diet yesterday. Review of Systems Review of Systems No fever +Abd pain no n/v Physical Exam Vital Signs: Vital Signs: Last Vital Signs Temp 97.6 F 01/20/21 03:56 Pulse 69 01/20/21 04:40 Resp 16 01/20/21 03:56 BP 129/63 01/20/21 04:40 Pulse Ox 93 01/20/21 03:56 Body Mass Index 26.2 General: AO X 3, no acute distress Resp: CTA bilateral CVS: S1,S2,RRR GI: +BS, slight tenderness at the laparoscopic incision sites, no distention Skin: No rash Neuro: motor grossly intact Psych: appropriate affect Objective Data Active Medications Acetaminophen (Acetaminophen 325 Mg Tablet) 650 mg PO Q6H PRN PRN Reason: Pain, Mild (Pain Scale 1-3) Last Admin: 01/18/21 17:05 Dose: 650 mg Documented by: DESHAWN Finasteride (Finasteride 5 Mg Tablet) 5 mg PO DAILY [facility] Last Admin: 01/19/21 09:00 Dose: Not Given Documented by: CHARLA Non-Admin Reason: NPO Hydromorphone HCl (Hydromorphone Hcl 0.5 Mg/0.5 Ml Syringe) 0.5 mg IVPUSH Q4H PRN; Protocol PRN Reason: Pain, Severe (Pain Scale 7-10) Last Admin: 01/20/21 00:04 Dose: 0.5 mg Documented by: MYRNA Dextrose/Sodium Chloride (D51/2ns) 1,000 mls @ 100 mls/hr IVCONT .Q10H [facility] Last Admin: 01/20/21 04:36 Dose: 100 mls/hr Documented by: MYRNA Piperacillin Sod/Tazobactam (Sod 3.375 gm/ Sodium Chloride) 50 mls @ 100 mls/hr IV Q6H [facility] Last Infusion: 01/20/21 07:32 Dose: 0 mls/hr Documented by: YESICA Latanoprost (Latanoprost 0.005 % Ophth Claudine 2.5 Ml Drops) 1 drop EYE-RIGHT BEDTIME [facility] Last Admin: 01/19/21 20:13 Dose: 1 drop Documented by: MYRNA Melatonin (Melatonin 3 Mg Tablet) 6 mg PO BEDTIME PRN PRN Reason: Insomnia Omeprazole (Omeprazole 20 Mg Capsule.Dr) 20 mg PO DAILY@0630 [facility] Last Admin: 01/20/21 06:24 Dose: 20 mg Documented by: MYRNA Ondansetron HCl (Ondansetron Hcl 4 Mg/2 Ml Vial) 4 mg IVPUSH Q8H PRN PRN Reason: Nausea and Vomiting Oxycodone HCl (Oxycodone Hcl Immed Release 5 Mg Tablet) 5 mg PO Q4H PRN PRN Reason: Pain, Moderate (Pain Scale 4-6 Last Admin: 01/19/21 20:35 Dose: 5 mg Documented by: MYRNA Senna (Sennosides 8.6 Mg Tablet) 17.2 mg PO BEDTIME PRN PRN Reason: Constipation Sodium Chloride (0.9 % Sodium Chloride Flush 3 Ml Syringe) 3 ml IVFLUSH QSHIFT [facility] Last Admin: 01/20/21 07:32 Dose: Not Given Documented by: GALEN Non-Admin Reason: IV Running Labs CBC & Chem 7: 01/20/21 04:06 01/20/21 04:06 Labs: Laboratory Results - last 24 hr 01/20/21 01/20/21 04:06 04:06 MCV 95.0 MCH 32.8 MCHC 34.5 RDW 12.5 Plt Count 234 MPV 10.3 Immature Gran % (Auto) 0.6 H Neut % (Auto) 86.8 H Lymph % (Auto) 2.4 L [place] % (Auto) 10.1 Eos % (Auto) 0.0 Baso % (Auto) 0.1 Lymph # (Auto) 0.5 L [place] # (Auto) 2.1 H Eos # (Auto) 0.0 Baso # (Auto) 0.0 Abs Immat Gran (auto) 0.12 H Absolute Neuts (auto) 18.4 H Absolute Nucleated RBC 0.000 Nucleated RBC % (auto) 0.0 Smear Tech's Comments VERIFIED Anion Gap 15 Estim Creat Clear Calc 80.6 Estimated GFR > 60 Random Glucose 149 H D Calcium 8.9 Microbiology Microbiology Results: Microbiology 01/18/21 01:31 Blood Culture - Preliminary Blood - Venous No growth after 48 hours. 01/18/21 01:31 Blood Culture - Preliminary Blood - Venous No growth after 48 hours. Assessment and Plan (1) Biliary disease with obstruction: Status: Acute (2) Elevated troponin: Status: Acute (3) Cholecystitis, acute with cholelithiasis: Status: Acute Assessment and Plan: 70-year-old male with a past medical history of BPH presented to the hospital with a chief complaint of upper abdominal pain.? Noted to have intrahepatic and extrahepatic biliary ductal dilatation. Acute cholecystitis with peristent RUQ, + hernandez, elevated WBC/ -s/p CCY 01/19 with finding of ?Markedly inflamed gallbladder with thickened gallbladder wall, tensely distended, gangrenous gallbladder wall WBC trended up signficantly overnight, probably reactive process, pt non toxic, no fever -continue Zosyn for and continue monitoring WBC -diet as tolerated, out of bed, ambulate Indeterminate troponin I level without change. No evidence of ACS. No further testing at this time. History of BPH:? Continue home finasteride. H/o Glaucoma--Ltanoprost heparin for dvt prophylaxis Quality Stroke Does the patient have a stroke diagnosis?: No VTE Prior VTE?: No VTE Risk Level:: Medical - low VTE Device Contraindication: N/A - Device Ordered VTE Drug Contraindication: Treatment Not Indicated
[2021-01-20] MEDS: Heparin Sodium,Porcine 5,000 UNIT/ML VIAL 5000 UNIT SUBCUT ×2 (10:58→21:46)
[2021-01-20] MEDS: Finasteride 5 MG TABLET PO (10:58)
--- NOTE | 2021-01-20 11:34 | PM.PNGS ---
Subjective Subjective Date of Service: 01/20/21 Interval history: Feels much better, tolerating solid diet, good control of incisional pain was not helpful, but last dose of IV Dilaudid was around midnight. Has not taken any additional analgesics since that time. Physical Exam Vital Signs: Vital Signs: Last Vital Signs Temp 97.2 F 01/20/21 09:00 Pulse 76 01/20/21 09:00 Resp 18 01/20/21 09:00 BP 129/56 L 01/20/21 09:00 Pulse Ox 95 01/20/21 09:00 Body Mass Index 26.2 Const: General: cooperative, no acute distress and alert Resp: Effort & Inspection: normal respiratory effort Auscultation: clear to auscultation bilaterally Cardio: Rate: regular rate Rhythm: regular rhythm GI: Other: Soft, flat, dressings clean dry and intact. Appropriate incisional tenderness. Bowel sounds active. Skin: Other: Warm and dry General skin exam: no rashes or lesions noted Procedures Date of Service Date of Service: 01/20/21 Progress Note: A&P Assessment and plan (1) Cholecystitis, acute with cholelithiasis: Status: Acute Assessment and Plan: Doing well day 1 post laparoscopic cholecystectomy. White blood count is elevated, 21.2, likely due in part to stress related response from surgery yesterday, but gallbladder was noted intraoperatively to have probable gangrenous changes. Continue IV Zosyn, repeat WBC tomorrow, likely discharge if improved. Fall Risk Details Current Medications: Current Medications Acetaminophen (Acetaminophen 325 Mg Tablet) 650 mg PO Q6H PRN PRN Reason: Pain, Mild (Pain Scale 1-3) Last Admin: 01/18/21 17:05 Dose: 650 mg Documented by: Finasteride (Finasteride 5 Mg Tablet) 5 mg PO DAILY [facility] Last Admin: 01/20/21 10:58 Dose: 5 mg Documented by: Heparin Sodium (Porcine) (Heparin Sodium,Porcine 5,000 Unit/Ml Vial) 5,000 unit SUBCUT Q12H [facility] Last Admin: 01/20/21 10:58 Dose: 5,000 unit Documented by: Hydromorphone HCl (Hydromorphone Hcl 0.5 Mg/0.5 Ml Syringe) 0.5 mg IVPUSH Q4H PRN; Protocol PRN Reason: Pain, Severe (Pain Scale 7-10) Last Admin: 01/20/21 00:04 Dose: 0.5 mg Documented by: Dextrose/Sodium Chloride (D51/2ns) 1,000 mls @ 100 mls/hr IVCONT .Q10H [facility] Last Admin: 01/20/21 04:36 Dose: 100 mls/hr Documented by: Piperacillin Sod/Tazobactam (Sod 3.375 gm/ Sodium Chloride) 50 mls @ 100 mls/hr IV Q6H [facility] Last Admin: 01/20/21 10:57 Dose: 100 mls/hr Documented by: Latanoprost (Latanoprost 0.005 % Ophth Claudine 2.5 Ml Drops) 1 drop EYE-RIGHT BEDTIME [facility] Last Admin: 01/19/21 20:13 Dose: 1 drop Documented by: Melatonin (Melatonin 3 Mg Tablet) 6 mg PO BEDTIME PRN PRN Reason: Insomnia Omeprazole (Omeprazole 20 Mg Capsule.Dr) 20 mg PO DAILY@0630 [facility] Last Admin: 01/20/21 06:24 Dose: 20 mg Documented by: Ondansetron HCl (Ondansetron Hcl 4 Mg/2 Ml Vial) 4 mg IVPUSH Q8H PRN PRN Reason: Nausea and Vomiting Oxycodone HCl (Oxycodone Hcl Immed Release 5 Mg Tablet) 5 mg PO Q4H PRN PRN Reason: Pain, Moderate (Pain Scale 4-6 Last Admin: 01/19/21 20:35 Dose: 5 mg Documented by: Senna (Sennosides 8.6 Mg Tablet) 17.2 mg PO BEDTIME PRN PRN Reason: Constipation Sodium Chloride (0.9 % Sodium Chloride Flush 3 Ml Syringe) 3 ml IVFLUSH QSHIFT [facility] Last Admin: 01/20/21 07:32 Dose: Not Given Documented by: Time Spent With Patient Time: Total time spent is greater than 50% in coordination of care (as documented) at patient's floor/unit and/or counseling patient: Time with patient: less than 15 minutes Quality Stroke Does the patient have a stroke diagnosis?: No VTE Prior VTE?: No VTE Risk Level:: Medical - low VTE Device Contraindication: N/A - Device Ordered VTE Drug Contraindication: Treatment Not Indicated
[2021-01-20] MEDS: Latanoprost 0.005 % Ophth Sol 2.5 ML DROPS 1 DROP EYE-RIGHT (21:46)
[2021-01-21] VITALS: BP 122/64; PULSE 76; RESP 16; TEMP 36.5; O2SAT 93
[2021-01-21 04:00] VITALS: BP 112/61; PULSE 73; RESP 16; TEMP 36.6; O2SAT 94
[2021-01-21] MEDS: Omeprazole 20 MG CAPSULE.DR PO (06:09)
[2021-01-21] MEDS: Piperacillin Sodium/Tazobactam 3.375 GM in 0.9 % Sodium Chloride 50 ML IV (06:09)
[2021-01-21] MEDS: Finasteride 5 MG TABLET PO (07:39)
[2021-01-21 07:55] VITALS: BP 135/75; PULSE 72; RESP 18; TEMP 36.4; O2SAT 97
[2021-01-21 08:46] LABS: Hematocrit 42.4 % (42-52); Hemoglobin 14.1 g/dl (14.0-18.0); Mean Corpuscular HGB Conc 33.3 g/dl (31.0-36.0); Mean Corpuscular Volume 96.1 fL (80-98); Mean Platelet Volume 10.6 fL (9.4-12.4); Platelet Count 249 X10*3/uL (160-400); Red Blood Count 4.41 X10*6/uL (4.60-5.80); Red Cell Distribution Width 12.7 % (11.0-16.0); White Blood Count 12.4 X10*3/uL (4.8-10.8)
--- NOTE | 2021-01-21 09:07 | HO.POSTANES ---
Post Anesthesia Evaluation Post Anesthesia Evaluation Vital Signs: Vital Signs Temp Pulse Resp BP Pulse Ox 01/21/21 07:55 97.6 F 72 18 135/75 97 01/21/21 04:00 97.9 F 73 16 112/61 94 01/21/21 00:00 97.7 F 76 16 122/64 93 Anesthesia: General Endotracheal-GETA Mental Status: Awake Pain Control: Satisfactory Nausea/Vomiting: None Hydration: Adequate Anesthesia-Related Issues: No Anes. Related Issues
--- NOTE | 2021-01-21 09:51 | P.DS_ITS ---
DS: Providers Provider Date of Service: 01/21/21 Date of admission: 01/18/21 07:23 Primary care physician: Luis F Flowers MD Consults: 01/18/21 05:08 Consult to Gastroenterology Routine Consulting Provider: Adolfo Oneil Reason for consultation: Biliary ductal dilatation; abdominal pain 01/18/21 05:09 Consult to Cardiology Routine Consulting Provider: Alexander Vale Reason for consultation: Elevated troponin 01/18/21 17:06 Consult to General Surgery Routine Consulting Provider: [facility] [facility] Reason for consultation: acute cholecystitis DS: Diagnosis Discharge Diagnosis (1) Cholecystitis, acute with cholelithiasis: Status: Resolved DS: Summary Hospital Course Hospital Course: admission HPI by Dr. Moncada Chief Complaint: Epigastric pain 70-year-old male with a past medical history of BPH presented to the hospital with a chief complaint of upper abdominal pain. Patient reported that he was doing fine until yesterday and today he noticed severe abdominal pain located in the upper abdomen, epigastrium; denies any associated nausea vomiting or diarrhea. Denies any fever chills cough. Denies any recent travel or sick contacts. Patient denies any chest pain palpitations lightheadedness or dizziness.? Denies any shortness of breath. Review of all other systems is negative except mentioned above ER course: Per ER team patient noted to have upper abdominal tenderness; CT scan showed dilation of the intrahepatic and extrahepatic biliary ducts.? On labs noted to have mild leukocytosis.? Patient was given Zosyn empirically.? Discussed with Dr. Oneil from Gastroenterology who suggested MRCP admission to the medicine service. Also noted that patient had indeterminate troponins.? EKG was nonischemic. Hospital course; He presented with abdominal pain with normal LFT but finding of intrahepatic biliary ducts dilation and elevated WBC. He had MRCP which showed ?common bile duct is minimally dilated measuring 1 cm. The intrahepatic bile ducts do not appear dilated. Enlarged gallbladder with gallbladder wall thickening and edema. US showed Distended gallbladder with circumferential wall thickening, increased intralumenal echogenicity and strong posterior shadowing. Findings suggest diffuse intraluminal gravel-like calculi. Possibility of acute or chronic cholecystitis is raised. He was treated for presumed acute cholecystitis with Zosyn. He had EGD on 01/18/[address] Good wiched and small hiatal hernia otherwise normal. Due to concnern of underlying cholecystitis and gallstones, he had Lap Cholecystectomy on 01/19/[address] Ramsay with finding of ? markedly inflamed gallbladder with thickened gallbladder wall, tensely distended, gangrenous gallbladder wall . The day after suergey he felt well, tolerated diet, yet WBC went up to 21K and was non toxic, we thought likley reactive but out of abundance of caution was continued On IV Zosyn for one more day and today WBC is 12K, and so will be discharged with 3 more day of antibiotics, Augmentin 875 mg twice, first dose in the hospital. Final diagnoses; Acute Cholecystitis Gallstones Time Spent with Patient Time attestation: Total time spent providing and/or coordinating discharge services: Discharge coordination time: Greater than 30 minutes Quality: Stroke Does the patient have a stroke diagnosis?: No Physical Exam Vital Signs: Vital Signs: Last Vital Signs Temp 97.6 F 01/21/21 07:55 Pulse 72 01/21/21 07:55 Resp 18 01/21/21 07:55 BP 135/75 01/21/21 07:55 Pulse Ox 97 01/21/21 07:55 Body Mass Index 26.2 General: AO X 3, no acute distress Resp: CTA bilateral CVS: S1,S2,RRR GI: +BS, NT, no distention Skin: No rash, incision site dry, clean and intact. Neuro: motor grossly intact Psych: appropriate affect DS: Data Data Completed and Pending Pending studies at discharge: Pending at discharge 01/19/21 15:15 Surgical [PTH] Routine Labs on day of discharge: Laboratory Results - last 24 hr 01/21/21 07:53 WBC 12.4 H RBC 4.41 L Hgb 14.1 Hct 42.4 MCV 96.1 MCH 32.0 MCHC 33.3 RDW 12.7 Plt Count 249 MPV 10.6 Absolute Nucleated RBC 0.000 Nucleated RBC % (auto) 0.0 Preliminary micro results at discharge 01/18/21 01:31 Blood Culture - Preliminary Blood - Venous No growth after 48 hours. 01/18/21 01:31 Blood Culture - Preliminary Blood - Venous No growth after 48 hours. Discharge Plan Discharge Anticipated Discharge Date/Time: 01/21/21 09:43 Patient Disposition: Home, Self-Care Discharge Diagnosis: Acute cholecystitis Referrals: Faizan Abarca MD [Physician] - 2 Weeks Rashid Alexandre MD [Physician] - 2 Weeks Luis F Flowers MD [Primary Care Provider] - 1 Week Discharge Medications: New amoxicillin-pot clavulanate [Augmentin] 875-125 mg tablet 1 tab PO BID Qty: 7 RF: 0 Continued finasteride 5 mg tablet 5 mg PO DAILY 90 Days Qty: 90 RF: 3 latanoprost 0.005 % drops 1 drp ophthalmic-Right BEDTIME RF: 0 aspirin [Adult Aspirin Regimen] 81 mg tablet,delayed release (DR/EC) 81 mg PO DAILY RF: 0 Discharge Orders: Discharge Order (Routine); Ordered 01/21/21 Ordered By: Jasmeet Connell Diet: advance to usual diet Activity on Discharge: As tolerated Stand Alone Forms: Patient Portal Discharge page Care Plan Goals: Full recovery from gallbladder surgery Health Concerns: Recent gallbladder surgery Plan of Treatment: Take Augmentin as recommended and follow up with your Doctor in a week, call for appointment for apointment Follow up with Dr. Abarca (Surgeon) as he has specified Assessment: Acute cholecystitis I saw and examine patient and discussed physical finding, labs, medication and studies with ROTOR CASTING MACHINE SETUP OPERATOR and I agree with plan and disposition as above. --Donte Connell MD Discharge Date/Time: 01/21/21 11:31
== END 2021-01-21 11:31 | disposition home or self-care (01) | DRG 419 ==
LOC: HO.ED 01-18 02:08 → HO.EDOVER 01-18 07:31 → HO.S3 01-18 11:43
PROVIDERS: Hospitalist; Internal Medicine; Internal Medicine Gastroenterology; Surgery; Admitting Provider Internal Medicine; Emergency Provider Emergency Medicine; PCP Internal Medicine; Visit Provider Internal Medicine
PROC: 0DJ08ZZ Inspection of Upper Intestinal Tract, Via Natural or Artificial Opening Endoscopic (ICD-10-PCS; CPT 43235; principal; 2021-01-18 15:30)
PROC: 0FT44ZZ Resection of Gallbladder, Percutaneous Endoscopic Approach (ICD-10-PCS; CPT 47562; principal; 2021-01-19 14:00)
DX: K80.00 Calculus of gallbladder with acute cholecystitis without obstruction (principal); H40.9 Unspecified glaucoma; N40.0 Benign prostatic hyperplasia without lower urinary tract symptoms; K44.9 Diaphragmatic hernia without obstruction or gangrene; Z20.822 Contact with and (suspected) exposure to COVID-19; Z87.891 Personal history of nicotine dependence; Z85.46 Personal history of malignant neoplasm of prostate; Z88.2 Allergy status to sulfonamides; Z79.82 Long term (current) use of aspirin; Z79.899 Other long term (current) drug therapy
CPT/HCPCS: 36415; 74177; 74181; 76705; 80048; 80053; 80061; 80076; 81001; 83036; 83690; 84484; 85025; 85027; 85610; 87040; 87635; 88304; 93005; 93306; 96361; 96365; 96375; 96376; 99024; 99285; J0690; J1100; J1170; J2250; J2270; J2370; J2405; J2543; J3010; Q9967

== ENCOUNTER → 2021-01-25 08:12 | Outpatient (REF) | payer MEDICARE, OTHER, SELFPAY ==
--- NOTE | 2021-01-25 08:16 | CA_ITS ---
Acquisition Time: 2021-01-25 08:16:29 Total Exercise Time: 00:02:00 Test Indications: Screening for CAD Medications: FINASTERIDE AUGMENTIN ASA Protocol: LEXISCAN Max HR: 101 BPM 67% of Pred: 149 BPM Max BP: 124/078 mmHG Max Work Load: 1.6 METS Pharmacological stress test with Lexiscan injection, while walking on treadmill 1 MPH, 0% incline, without anginal symptoms, without arrythmia, with normotensive response to injection, with nondiagnostic EKG for ischemia. Nuclear images pending. Test reviewed with Dr Lim. Prior to imaging, it was identified by the [employer] system that pt did Not recieve nuclear injection post lexiscan as originally thought. The nuclear scan was then cancelled. Pt informed of the events. Incident report completed by [employer] system, Cardiology small business banking officer notified. Pt to be rescheduled for exercise nuclear stress test in few weeks. A pharmacological stress had been done today as he is 5 days post cholecystectomy. Pt is agreeable to this plan. Dr Vale notified of above events. Referred By: Alexander Vale Overread By: VLADIMIR RICE
== END ==
LOC: HO.CARD 08:12
PROVIDERS: PCP Internal Medicine; Visit Provider Internal Medicine Cardiovascular Disease
DX: R77.8 Other specified abnormalities of plasma proteins (principal)
CPT/HCPCS: 93017; J0280; J2785

== ENCOUNTER → 2021-02-02 10:27 | Outpatient (BNVA) | payer MEDICARE, OTHER, SELFPAY | PROVIDERS: PCP Internal Medicine; Referring Provider Internal Medicine; Visit Provider Surgery | DX: Z48.815 Encounter for surgical aftercare following surgery on the digestive system (principal); Z87.19 Personal history of other diseases of the digestive system | CPT/HCPCS: 99212 ==

== ENCOUNTER → 2021-02-22 09:49 | Outpatient (REF) | payer MEDICARE, OTHER, SELFPAY ==
--- NOTE | ~2021-02-22 | NM_ITS ---
Exercise Myocardial perfusion study Indication: Abnormal troponins to evaluate for myocardial ischemia Technique: The patient was brought in for an exercise perfusion study on 02/22/2021. Patient performed exercise as per Trey protocol and was injected 25 mCi of sestamibi was given intravenously one target HR was achieved. Images were obtained using the SPECT gamma camera interlaced with the gating device. Images were obtained in supine position. Resting perfusion study was performed on 02/23/2021. Patient was administered 25 mCi of sestamibi intravenously at rest. Images were then obtained in supine position. Images obtained with and without CT attenuation. Total DLP 85 mGy-cm. Images were processed with the software and compared side to side in short axis, horizontal long axis and vertical long axis views. Findings: The stress perfusion study showed nonattenuated images show minimal thinning of the basal inferior and basal inferoseptal wall of the LV myocardium. Remainder of the LV myocardium is normally. Attenuation corrected images show normal uptake of radiotracer in all segments of LV myocardium. The gated study shows normal LV systolic function with calculated LVEF of 71%. LV cavity is normal in size. The gated study shows normal systolic wall thickening and contraction of all segments. There is no transient ischemic dilation. Resting study shows no change in perfusion pattern compared to stress perfusion study. Gating at rest reveals normal systolic wall motion with ejection fraction at 58%. The findings are consistent with normal myocardial perfusion. NM/NM cardiolite stress test Impression: 1. Normal myocardial perfusion 2. Gated LVEF is 71% 3. Transient ischemic dilatation not present Stress EKG is negative for ischemia
--- NOTE | 2021-02-22 10:00 | CA_ITS ---
Acquisition Time: 2021-02-22 09:51:13 Total Exercise Time: 00:07:11 Test Indications: Ischemia Evaluation Medications: ASA FINASTERIDE EYE DROPS Protocol: MOHAMUD Max HR: 141 BPM 94% of Pred: 149 BPM Max BP: 148/058 mmHG Max Work Load: 8.8 METS Exercise stress test with exercise 7 min 11 sec of Mohamud protocol, without anginal symptoms, with isolated PAC and short runs of atrial tach 3- 8 beats, with normotensive response to exercise, then brief drop in BP within first 30 sec of recovery/ stop of exercise at 100/50, then back up to normal range once sitting few miutes later, without EKG changes meeting criteria for ischemia. Nuclear images pending. Test reviewed with Dr Barron. Referred By: Alexander Vale Overread By: VLADIMIR RICE
== END ==
LOC: HO.CARD 09:49
PROVIDERS: PCP Internal Medicine; Visit Provider Nurse Practitioner Family
DX: R77.8 Other specified abnormalities of plasma proteins (principal); R77.0 Abnormality of albumin
CPT/HCPCS: 78452; 93017; A9500

== ENCOUNTER → 2021-03-07 08:27 | Outpatient (BNVA) | payer MEDICARE, OTHER, SELFPAY | PROVIDERS: PCP Internal Medicine; Referring Provider Internal Medicine; Visit Provider Internal Medicine Cardiovascular Disease | DX: R77.8 Other specified abnormalities of plasma proteins (principal) | CPT/HCPCS: 99212 ==

== ENCOUNTER 2021-03-26 07:02 | Outpatient (REF) | payer MEDICARE, OTHER, SELFPAY ==
[2021-03-26 08:25] LABS: PSA,Total (Free>4and<10) 2.75 ng/mL (0.00-4.00)
== END 2021-03-26 07:03 | disposition home or self-care (01) ==
LOC: HO.LAB 07:02
PROVIDERS: PCP Internal Medicine; Visit Provider Urology
DX: Z12.5 Encounter for screening for malignant neoplasm of prostate (principal); C61 Malignant neoplasm of prostate
CPT/HCPCS: 36415; 84153

== ENCOUNTER → 2021-04-11 09:05 | Outpatient (BNVA) | payer MEDICARE, OTHER, SELFPAY | PROVIDERS: PCP Internal Medicine; Visit Provider Urology | DX: C61 Malignant neoplasm of prostate (principal) | CPT/HCPCS: 99212 ==

== ENCOUNTER 2021-08-01 06:01 | Outpatient (REF) | payer MEDICARE, OTHER, SELFPAY ==
[2021-08-01 08:04] LABS: PSA,Total (Free>4and<10) 2.26 ng/mL (0.00-4.00)
== END 2021-08-01 06:02 | disposition home or self-care (01) ==
LOC: HO.LAB 06:01
PROVIDERS: PCP Internal Medicine; Visit Provider Urology
DX: Z12.5 Encounter for screening for malignant neoplasm of prostate (principal); C61 Malignant neoplasm of prostate; N40.1 Benign prostatic hyperplasia with lower urinary tract symptoms; N13.8 Other obstructive and reflux uropathy
CPT/HCPCS: 36415; 84153

== ENCOUNTER → 2021-08-10 08:53 | Outpatient (BNVA) | payer MEDICARE, OTHER, SELFPAY | PROVIDERS: PCP Internal Medicine; Visit Provider Urology | DX: C61 Malignant neoplasm of prostate (principal) | CPT/HCPCS: Q3014 ==

== ENCOUNTER 2022-01-23 07:07 | Outpatient (REF) | payer MEDICARE, OTHER, SELFPAY ==
[2022-01-23 08:46] LABS: Prostate Specific Antigen 2.74 ng/mL (<0.05-4.0)
== END 2022-01-23 07:08 | disposition home or self-care (01) ==
LOC: HO.LAB 07:07
PROVIDERS: PCP Internal Medicine; Visit Provider Urology
DX: Z12.5 Encounter for screening for malignant neoplasm of prostate (principal); C61 Malignant neoplasm of prostate; R97.20 Elevated prostate specific antigen [PSA]
CPT/HCPCS: 36415; 84153

== ENCOUNTER → 2022-01-30 10:05 | Outpatient (BNVA) | payer MEDICARE, OTHER, SELFPAY | PROVIDERS: PCP Internal Medicine; Visit Provider Urology | DX: C61 Malignant neoplasm of prostate (principal) | CPT/HCPCS: Q3014 ==

== ENCOUNTER → 2022-05-07 13:45 | Outpatient (BNVA) | payer MEDICARE, OTHER, SELFPAY | PROVIDERS: PCP Internal Medicine; Visit Provider Nurse Practitioner Family | DX: Z01.810 Encounter for preprocedural cardiovascular examination (principal); I45.10 Unspecified right bundle-branch block; C61 Malignant neoplasm of prostate | CPT/HCPCS: 99212 ==

== ENCOUNTER 2022-05-20 07:17 | Day surgery (SDC) | payer MEDICARE, OTHER, SELFPAY ==
[2022-05-15 11:44] VITALS: BMI 27.2
[2022-05-20 08:33] VITALS: BP 162/83; PULSE 73; RESP 18; TEMP 36.3; O2SAT 98; BMI 27.2
--- NOTE | 2022-05-20 09:05 | HO.ANESPROP2 ---
HPI - Anesthesia Eval Consult details Narrative: prostate needle bx PMFSH Active Problems Active Problems: All Active Problems (Updated 05/15/22 @ 11:30 by Carie Gould RN) Preop cardiovascular exam (Acute) Right bundle branch block (Acute) Family history of prostate cancer (Acute) Elevated PSA (Acute) Prostate cancer (Acute) Past Medical History Medical History (Updated 05/15/22 @ 11:30 by Carie Gould RN) Elevated PSA Family history of prostate cancer Prostate cancer Right bundle branch block (RBBB) Family History Family History Father No problems noted. Mother No problems noted. Paternal Grandfather Prostate cancer Family history of problems with anesthesia: No Surgical History Surgical History (Updated 05/15/22 @ 11:31 by Carie Gould RN) History of colonoscopy History of esophagogastroduodenoscopy (EGD) History of vasectomy Hx laparoscopic cholecystectomy History of Problems with Anesthesia: No Social History Social History Household Members: Spouse Housing: House Are you a primary personal care aid to a significant other at home: No Do you presently have visiting nurse or other home services: No Alcohol intake: unknown Patient Tobacco Use Status: Former Tobacco user Quit Date: quit 35 years ago Use of substances other than those prescribed or required for medical reasons: No Have you been hit, kicked, punched, or otherwise hurt by someone within the past year? If so, by whom?: No Are you DNR?: No Advance Directives: No Advance Directives Information Provided: Yes Advance Directives on File: No Recently lost weight without trying: No Eating poorly because of decreased appetite: No Nutrition Risks: No Nutritional Risk service: Yes Current occupational status: retired Meds Allergies Allergy/AdvReac Type Severity Reaction Status Date / Time Sulfa (Sulfonamide Allergy Unknown rash Verified 05/07/22 14:03 Antibiotics) Home Medications Medication Instructions Recorded Confirmed Last Taken Type latanoprost 0.005 % eye drops 1 drp ophthalmic-Right BEDTIME 05/01/20 05/15/22 01/17/21 History Exam Exam Date and Time: May 20, 2022904 Height,Weight and Vital Signs: Height 5 ft 10 in Weight 86.183 kg Last Vital Signs Temp 97.4 F 05/20/22 08:33 Pulse 73 05/20/22 08:33 Resp 18 05/20/22 08:33 BP 162/83 H 05/20/22 08:33 Pulse Ox 98 05/20/22 08:33 O2 Del Method 05/20/22 08:33 Airway Mallampati Class: I TM Dist: >3cm Neck ROM: Full Heart: ok Lungs: ok Assessment and Plan Assessment Anesthesia Assessment: Anesthesia Plan Discussed and Chart Reviewed Final Anesthetic Review Family History of Problems with Anesthesia: No History of Problems with Anesthesia: No NPO: Yes ASA Class: II Final Preanesthetic Review: No Changes in Pt Med Stat, Meds/Allgs Chart Reviewed, Consent Obtained/Reviewed and Anes Risks/Benef Reviewed Patient Risk: Low Procedure Risk: Low Anesthetic Plan Anesthetic Plan: GA, MAC: and Agree w/ Assess. and Plan Disposition: Standard PACU and Extended PACU
--- NOTE | 2022-05-20 09:13 | MHC.SHP ---
Pre-Procedural Eval Section A Date of Service: 05/20/22 The patient is an INPATIENT: No Changes since office visit: No Cold of Flu in the past 2 weeks, No New Medical Problems, No Changes in Medication and No Patient answered all questions The History & Physical has been completed within 30 days and I have reviewed it.: No Section B Chief Complaint: Elevated prostate specific antigen [PSA] Details of Present Illness: targeted prostate biopsy Relevant Family History (Specify if Yes): No Relevant Social History: None Present Medications: see Short Stay Collaborative assessment Medical History: No relevant PMH History of Previous Operations: No relevant previous surgery Allergies: Allergies Allergy/AdvReac Type Severity Reaction Status Date / Time Sulfa (Sulfonamide Allergy Unknown rash Verified 05/07/22 14:03 Antibiotics) Review of Systems Sugical H&P ROS: Negative: Constitution, Cardiovascular, Respiratory, Neurological, Psychiatric, Hem-Onc, Allergic/Immunologic, Gastrointestinal, Genitourinary, Musculoskeletal, Integumentary, Endocrine and Eyes/Ears/Nose/Throat Exam Surgical H&P Exam: Normal: HEENT, Normal: Heart, Normal: Lungs, Normal: Extremities, Normal: Abdomen, Normal: Skin and Normal: Neurological Plan Diagnosis/Plan: Unchanged (targetted prostate biopsy) I have reviewed the history and physical and performed a pertinent physical examination on my patient. No changes have occurred unless specified. Time Spent With Patient Time: Total time managing care of this patient today ____ minutes.
--- NOTE | 2022-05-20 10:43 | W.PM.OPN ---
Operative Note Operative Note Date of Service: 05/20/22 Narrative: Preoperative diagnosis: Prostate Cancer Postoperative diagnosis: Prostate Cancer Procedure: 1. transrectal ultrasound measurement of prostate 2. transrectal ultrasound-guided pudendal nerve block 3. MRI-US fusion image registration performed 3. transperineal ultrasound-guided prostate biopsy 16 core including targets Surgeon: Dr. Gonzalez Cartagena Anesthetic: Sedation plus local Indications for procedure: Prostate Cancer Procedure: After informed consent was verified, the patient was brought into the procedure area. Patient identity confirmed. Perioperative antibiotics confirmed. Safety pause time out performed. Anesthesia performed per protocol Ultrasound probe was placed per rectum Focalis software and hardware platform used An ultrasound-guided pudendal nerve block was performed using 10 cc of 1% lidocaine. 8 cc was placed at the base and 2 cc of the apex. Ultrasound placement was made with grid calibration for height and prostate diameter in both the transverse and longitudinal planes. Once grade calibration was confirmed ultrasound acquisition was performed in the transverse fashion. Three dimensional ultrasound model was created. The planned needle targeting based on prior acquisition of MRI imaging was overlaid on the ultrasound images and targets confirmed through ultrasound review. Based on pre -planning evaluation 16 targets had been identified. These included 3 targets of the PI-RADS 3 prostate apex identified lesion/s.. He tolerated the procedure well. Was transferred to stable condition in the PACU. Printed instructions regarding antibiotic use and common side effects such as low-grade temperature, potential infection and bleeding were given Pathology: 16 core prostate biopsy
[2022-05-20 10:46] VITALS: BP 117/66; PULSE 77; RESP 17; TEMP 36.6; O2SAT 96
[2022-05-20 11:01] VITALS: BP 119/77; PULSE 71; RESP 18; TEMP 36.6; O2SAT 97
== END 2022-05-20 11:35 | disposition home or self-care (01) ==
PROVIDERS: PCP Internal Medicine; Visit Provider Urology
PROC: (CPT 55700; principal; 2022-05-20 09:40)
DX: C61 Malignant neoplasm of prostate (principal); R97.20 Elevated prostate specific antigen [PSA]; Z80.42 Family history of malignant neoplasm of prostate; I45.10 Unspecified right bundle-branch block; Z79.899 Other long term (current) drug therapy; Z88.2 Allergy status to sulfonamides; Z98.52 Vasectomy status; Z90.49 Acquired absence of other specified parts of digestive tract; Z87.891 Personal history of nicotine dependence
CPT/HCPCS: 55700; 88305; 88344; J0690; J1956; J2250; J3010

== ENCOUNTER → 2022-05-28 10:07 | Outpatient (BNVA) | payer MEDICARE, OTHER, SELFPAY | PROVIDERS: PCP Internal Medicine; Visit Provider Urology | DX: C61 Malignant neoplasm of prostate (principal) | CPT/HCPCS: Q3014 ==

== ENCOUNTER 2022-09-18 06:07 | Outpatient (REF) | payer MEDICARE, OTHER, SELFPAY ==
[2022-09-18 08:13] LABS: Prostate Specific Antigen 3.02 ng/mL (<0.05-4.0)
== END 2022-09-18 06:08 | disposition home or self-care (01) ==
LOC: HO.LAB 06:07
PROVIDERS: PCP Internal Medicine; Visit Provider Urology
DX: Z12.5 Encounter for screening for malignant neoplasm of prostate (principal); C61 Malignant neoplasm of prostate
CPT/HCPCS: 36415; 84153

== ENCOUNTER → 2022-09-25 13:04 | Outpatient (BNVA) | payer MEDICARE, OTHER, SELFPAY | PROVIDERS: PCP Internal Medicine; Visit Provider Urology | DX: C61 Malignant neoplasm of prostate (principal) | CPT/HCPCS: 99212 ==

== ENCOUNTER 2023-01-08 09:23 | Outpatient (REF) | payer MEDICARE, OTHER, SELFPAY ==
[2023-01-08 11:12] LABS: Prostate Specific Antigen 3.55 ng/mL (<0.05-4.0)
== END 2023-01-08 09:24 | disposition home or self-care (01) ==
LOC: HO.LAB 09:23
PROVIDERS: PCP Internal Medicine; Visit Provider Urology
DX: R97.20 Elevated prostate specific antigen [PSA] (principal); Z12.5 Encounter for screening for malignant neoplasm of prostate
CPT/HCPCS: 36415; 84153

== ENCOUNTER 2023-01-23 08:02 | Outpatient (AMB) | payer MEDICARE, OTHER, SELFPAY ==
--- NOTE | 2023-01-23 08:41 | MHC.OFFVIS ---
Intake Intake Visit Reasons: 4m/PSA(set) Intake Note: Patient is Present for Telephone Follow Up PSA Urology Med: Finasteride Antibiotic Allergy:Sulfa Blood Thinner:None Pharamcy: [facility] Allergies Sulfa (Sulfonamide Antibiotics) Allergy (Unknown, Verified 01/23/23 08:42) rash HPI HPI Comments History of Present Illness Details Anthony is a pleasant male. He is a patient of Dr. Flowers. He is seen for the following urologic issue - prostate cancer Telemedicine Evaluation 15 min Consultation [facility] Video attempted Slight rise in PSA Continue finasteride and 4 month follow-up Prostate cancer group 1 - active surveillance February 2019, 05/3023 Grade Group1 PSA 02/24 4.5, 07/26 6.0, 10/25 3.4, 03/27 2.75, 07/27 2.3, 01/26 2.7, 09/27 3.1, 01/27 3.5 Has undergone single biopsy with MRI follow-up in November 2020 Prostate cancer diagnosed by Dr. Hoang February 2019, PSA at diagnosis 6.2 Initial pathology - Deb 3 + 3, 3/12 cores, maximum core 40% Imaging MRI 11/25 55 g prostate, apical right lesion, no evidence of extracapsular extension. PI-RADS 3 Repeat Biopsy 05/30 [place] score:? 6 (3+3) (e 2.5 and? c3 3.5) Tumor quantitation: Number cores positive: 2 Total number of cores: 13 with prostatic tissue % of tissue involved: 1.77% of all prostatic tissue examined Periprostatic fat inv.: Not identified Seminal vesicle inv.: Not identified Perineural inv.: Not identified Lymphovascular invasion: Not identified Family history positive - grandfather Initial therapy - active surveillance with finasteride [facility] Medical History Right bundle branch block (RBBB) Family history of prostate cancer Elevated PSA Prostate cancer Surgical History Hx laparoscopic cholecystectomy History of esophagogastroduodenoscopy (EGD) History of colonoscopy History of vasectomy Family History Father No problems noted. Mother No problems noted. Paternal Grandfather Prostate cancer Social History Household Members: Spouse Housing: House Are you a primary hospice care consultant to a significant other at home: No Do you presently have visiting nurse or other home services: No Alcohol intake: unknown Patient Tobacco Use Status: Former Tobacco user Quit Date: quit 35 years ago service: Yes Current occupational status: retired Review of Systems Const All systems reviewed & are unremarkable except as noted in HPI and below Reports no additional complaints Resp Reports no additional complaints GI Reports no additional complaints Reports as per HPI Musc Reports no additional complaints Physical Exam Telemedicine evaluation Appropriate responses Regular breathing rate and rhythm HEENT Head: Yes normal to inspection Ears: hearing grossly normal bilaterally Eyes General: appearance normal, both eyes and all related structures Neck Neck: Yes normal visual inspection Chest Chest palpation & inspection: normal inspection of the chest Resp Effort & Inspection: normal respiratory effort and able to speak in complete sentences Assessment & Plan Assessment & Plan (1) Prostate cancer: Comment: 201819 Grade group 1 PSA stable 2022 repeat biopsy grade group 1 Code(s): C61 - Malignant neoplasm of prostate Plan Continue 3 month surveillance Orders: Orders Prostate Specific Antigen 3 Months C61 - Malignant neoplasm of prostate Patient Instructions: Imaging studies, laboratory and physical exam results were discussed and reviewed in detail. No major barriers to patient understanding were identified. An opportunity to ask questions regarding the treatment plan was provided. All questions were answered. The patient expressed understanding and agreement with the above treatment plan. The patient is aware they should contact our office by phone for worsening of their current condition or the appearance of new urologic symptoms. Compliance is encouraged with any medications and followup testing that is ordered. It is a privilege to participate in the urologic care of your patient. If you have any questions or concerns regarding treatment for the above conditions, or other urologic issues, please do not hesitate to contact me. The office telephone contact is [phone]. This note is constructed using voice recognition software. While every effort has been made to ensure accuracy kindergarten instructional assistant errors may have been included. Yours sincerely, Dr Gonzalez Cartagena MD, [facility] - Urology Providers of Expert, Compassionate Care for the Genitourinary System Telehealth Telehealth Location of provider rendering services: practice address Location of patient: address on file Patient Identification confirmed using: Name, : Yes Telehealth method: voice only Patient verbally consented to treatment: Yes Patient verbally consented to billing insurance company: Yes Patient informed of any privacy concerns related to visit: Yes Coding Level of Care Code Est Pt Level 3 (85087) Diagnoses Prostate cancer C61
== END 2023-01-23 08:52 | disposition home or self-care (01) ==
LOC: HO.HUSH 08:02
PROVIDERS: PCP Internal Medicine; Visit Provider Urology
DX: C61 Malignant neoplasm of prostate (principal)
CPT/HCPCS: 99213

== ENCOUNTER → 2023-01-23 08:02 | Outpatient (BNVA) | payer MEDICARE, OTHER, SELFPAY | PROVIDERS: PCP Internal Medicine; Visit Provider Urology | DX: C61 Malignant neoplasm of prostate (principal) | CPT/HCPCS: 99212 ==

== ENCOUNTER 2023-03-07 06:44 | Day surgery (SDC) | payer MEDICARE, OTHER, SELFPAY ==
[2023-03-05 13:47] VITALS: BMI 26.9
--- NOTE | 2023-03-05 15:22 | P.CONAN_ITS ---
Documented by User: Jenny Cook NP 03/05/23 15:23 HPI - Anesthesia Eval Consult details Narrative: 72yo M for ?Colonoscopy (Cardiac optimized prior to prostate bx 04/2022) [facility] Active Problems Active Problems: All Active Problems (Updated 05/28/22 @ 10:53 by Gonzalez Cartagena MD) Right bundle branch block (Acute) Preop cardiovascular exam (Acute) Family history of prostate cancer (Acute) Elevated PSA (Acute) Prostate cancer (Acute) Past Medical History Medical History Right bundle branch block (RBBB) Family history of prostate cancer Elevated PSA Prostate cancer Family History Family History Father No problems noted. Mother No problems noted. Paternal Grandfather Prostate cancer Family history of problems with anesthesia: No Surgical History Surgical History Hx of prostate biopsy Hx laparoscopic cholecystectomy History of esophagogastroduodenoscopy (EGD) History of colonoscopy History of vasectomy History of Problems with Anesthesia: No Social History Social History Household Members: Spouse Housing: House Are you a primary home care music therapist to a significant other at home: No Do you presently have visiting nurse or other home services: No Alcohol intake: unknown Patient Tobacco Use Status: Former Tobacco user Quit Date: quit 35 years ago service: Yes Current occupational status: retired Meds Allergies Allergy/AdvReac Type Severity Reaction Status Date / Time Sulfa (Sulfonamide Allergy Unknown rash Verified 03/07/23 06:57 Antibiotics) Home Medications Medication Instructions Recorded Confirmed Last Taken Type latanoprost 0.005 % eye drops 1 drp ophthalmic-Right BEDTIME 05/01/20 03/05/23 03/07/23 History Exam Height,Weight and Vital Signs: Height 5 ft 9 in Weight 82.554 kg Assessment and Plan Assessment Anesthesia Assessment: Chart Reviewed Final Anesthetic Review Family History of Problems with Anesthesia: No History of Problems with Anesthesia: No Documented by User: Marilee Clemente MD 03/07/23 08:15 PMFSH Past Medical History Medical History Right bundle branch block (RBBB) Family history of prostate cancer Elevated PSA Prostate cancer Family History Family History Father No problems noted. Mother No problems noted. Paternal Grandfather Prostate cancer Surgical History Surgical History Hx of prostate biopsy Hx laparoscopic cholecystectomy History of esophagogastroduodenoscopy (EGD) History of colonoscopy History of vasectomy Social History Social History Household Members: Spouse Housing: House Are you a primary home care music therapist to a significant other at home: No Do you presently have visiting nurse or other home services: No Alcohol intake: unknown Patient Tobacco Use Status: Former Tobacco user Quit Date: quit 35 years ago service: Yes Current occupational status: retired Meds Allergies Allergy/AdvReac Type Severity Reaction Status Date / Time Sulfa (Sulfonamide Allergy Unknown rash Verified 03/07/23 06:57 Antibiotics) Home Medications Medication Instructions Recorded Confirmed Last Taken Type latanoprost 0.005 % eye drops 1 drp ophthalmic-Right BEDTIME 05/01/20 03/05/23 03/07/23 History Exam Airway Mallampati Class: III TM Dist: >3cm Neck ROM: Full Denture: Upper Loose/Missing/Broken Teeth: Yes, Upper and Lower Heart: RRR Lungs: CTA Assessment and Plan Assessment Anesthesia Assessment: Anesthesia Plan Discussed Final Anesthetic Review NPO: Yes ASA Class: III Final Preanesthetic Review: Meds/Allgs Chart Reviewed, Consent Obtained/Reviewed and Anes Risks/Benef Reviewed Patient Risk: Intermediate Procedure Risk: Low Anesthetic Plan Anesthetic Plan: MAC: Disposition: Standard PACU
[2023-03-07 06:56] VITALS: BMI 28.6
[2023-03-07] MEDS: Lactated Ringers 1,000 ML 100 ML IVCONT (07:02)
[2023-03-07 07:09] VITALS: BP 137/90; PULSE 82; RESP 18; TEMP 36.7; O2SAT 98
--- NOTE | 2023-03-07 08:00 | MHC.SHP ---
Pre-Procedural Eval Section A Date of Service: 03/07/23 Section B Chief Complaint: Encounter for screening for malignant neoplasm of Details of Present Illness: see H&P no changes Relevant Family History (Specify if Yes): No Relevant Social History: None Present Medications: see Short Stay Collaborative assessment Medical History: No relevant PMH History of Previous Operations: No relevant previous surgery Allergies: Allergies Allergy/AdvReac Type Severity Reaction Status Date / Time Sulfa (Sulfonamide Allergy Unknown rash Verified 03/07/23 06:57 Antibiotics) Review of Systems Sugical H&P ROS: Negative: Constitution, Cardiovascular, Respiratory, Neurological, Psychiatric, Hem-Onc, Allergic/Immunologic, Gastrointestinal, Genitourinary, Musculoskeletal, Integumentary, Endocrine and Eyes/Ears/Nose/Throat Exam Surgical H&P Exam: Normal: HEENT, Normal: Heart, Normal: Lungs, Normal: Extremities, Normal: Abdomen, Normal: Skin and Normal: Neurological Plan Diagnosis/Plan: Unchanged I have reviewed the history and physical and performed a pertinent physical examination on my patient. No changes have occurred unless specified. Time Spent With Patient Time: Total time managing care of this patient today ____ minutes.
[2023-03-07 08:43] VITALS: BP 85/57; PULSE 75; RESP 16; TEMP 36.1; O2SAT 94
[2023-03-07 08:48] VITALS: BP 90/57; PULSE 74; RESP 12; O2SAT 94
[2023-03-07 08:59] VITALS: BP 106/66; PULSE 68; RESP 13; O2SAT 94
--- NOTE | 2023-03-07 09:03 | OP_ITS ---
DATE OF SERVICE: 03/07/2023 SURGEON: Adolfo Oneil MD INDICATIONS: Colon cancer screening. PREOPERATIVE DIAGNOSIS: POSTOPERATIVE DIAGNOSIS: PROCEDURE PERFORMED: Colonoscopy to the terminal ileum with biopsy and snare polypectomy. ESTIMATED BLOOD LOSS: COMPLICATIONS: ANESTHESIA: Medications: Monitored anesthesia care. ASSISTANTS: SPECIMENS: DESCRIPTION OF PROCEDURE: A History and Physical was performed. The risks and benefits of the procedure were explained to the patient. Informed consent was obtained. The patient was placed in the left lateral decubitus position. A digital rectal exam was performed and was found to be normal. The Olympus pediatric video colonoscope was introduced into the rectum and advanced to the cecum. The cecum was identified by transillumination, palpation, and identification of the ileocecal valve. Examination was performed. The scope was removed. He tolerated the procedure well and was returned to the recovery area in stable condition. FINDINGS: The terminal ileum was normal. The visualized colonic mucosa was normal. The quality of the prep was good. There was mild sigmoid diverticulosis. Two polyps were identified. The first measured approximately 8 mm in the right colon and was removed with a cold snare. This was recovered via suction. The second polyp at 80 cm was less than 5 mm and was removed with a biopsy forceps. No other polyps were identified. Retroflexed examination showed small internal hemorrhoids. IMPRESSION: Colon polyps. RECOMMENDATION: Follow up with the biopsy results. MD JANINE Orta/MONICA / [id number]
[2023-03-07 09:08] VITALS: BP 118/72; PULSE 64; RESP 14; TEMP 36.1; O2SAT 95
== END 2023-03-07 09:48 | disposition home or self-care (01) ==
PROVIDERS: PCP Internal Medicine; Visit Provider Internal Medicine Gastroenterology
PROC: 0DJD8ZZ Inspection of Lower Intestinal Tract, Via Natural or Artificial Opening Endoscopic (ICD-10-PCS; CPT 45378; principal; 2023-03-07 08:20)
DX: Z12.11 Encounter for screening for malignant neoplasm of colon (principal); Z86.010 Personal history of colon polyps; D12.2 Benign neoplasm of ascending colon; D12.4 Benign neoplasm of descending colon; K57.30 Diverticulosis of large intestine without perforation or abscess without bleeding; K64.8 Other hemorrhoids; I45.10 Unspecified right bundle-branch block; H40.059 Ocular hypertension, unspecified eye; Z98.52 Vasectomy status; Z79.899 Other long term (current) drug therapy; Z88.2 Allergy status to sulfonamides; Z87.891 Personal history of nicotine dependence; Z90.49 Acquired absence of other specified parts of digestive tract
CPT/HCPCS: 45385; 45380; 88305; J2704

== ENCOUNTER 2023-04-10 09:16 | Outpatient (AMB) | payer MEDICARE, OTHER, SELFPAY ==
--- NOTE | 2023-04-10 09:45 | MHC.OFFVIS ---
Intake Vital Signs 04/10/23 09:46 Height 5 ft 9 in Weight 198 lb 6.656 oz BMI 29.3 BP 120/80 Blood Pressure Location Lt brachial Position Sitting Pulse 79 Intake Visit Reasons: 1 yr f/ up Intake Note: 1 year follow-up with ekg c/o some tightness in the center of chest Room Service Manager Required: No Allergies Sulfa (Sulfonamide Antibiotics) Allergy (Unknown, Verified 03/07/23 06:57) rash Medication List - Last Reconciled 04/10/23 by Alexander Vale MD finasteride 5 mg PO DAILY 90 days latanoprost 0.005% 1 drp ophthalmic-Right BEDTIME HPI HPI Comments History of Present Illness Details Fareed comes for follow-up. He said over the last many months he has been having intermittent retrosternal chest discomfort she describes as a pressure. There is no clear relation to exertion but can be under stressful situations. Symptoms last for few minutes and then dissipate. No associated significant shortness of breath, nausea, vomiting, diaphoresis. Patient takes all his medications. Denies any palpitations, lightheadedness, syncope. Denies any heart failure symptoms. [facility] Medical History Right bundle branch block (RBBB) Family history of prostate cancer Elevated PSA Prostate cancer Surgical History Hx of prostate biopsy Hx laparoscopic cholecystectomy History of esophagogastroduodenoscopy (EGD) History of colonoscopy History of vasectomy Family History Father No problems noted. Mother No problems noted. Paternal Grandfather Prostate cancer Social History Household Members: Spouse Housing: House Are you a primary cardiac care nurse to a significant other at home: No Do you presently have visiting nurse or other home services: No Alcohol intake: unknown Patient Tobacco Use Status: Former Tobacco user Quit Date: quit 35 years ago service: Yes Current occupational status: retired Review of Systems Const Denies chills, Denies fatigue, Denies fever(s), Denies frequent falls, Denies weakness, Denies weight gain and Denies weight loss ENT Denies dizziness Card Denies chest pain, Denies leg edema, Denies lightheadedness, Denies palpitations, Denies dyspnea, Denies dyspnea on exertion, Denies orthopnea and Denies other (loss of consciousness) Resp Denies cough, Denies dyspnea and Denies dyspnea on exertion GI Denies hematochezia and Denies change in stool character Musc Denies abnormal gait, Denies muscle weakness, Denies numbness, Denies radiating pain into limb and Denies tingling Neuro Denies abnormal gait, Denies dizziness, Denies frequent falls, Denies numbness, Denies tingling and Denies weakness Endo Denies fatigue and Denies palpitations Physical Exam Vital Signs: Last Vital Signs Pulse 79 04/10/23 09:46 BP 120/80 04/10/23 09:46 BMI result Body Mass Index 29.3 Const General: cooperative, healthy appearing, comfortable and no acute distress Orientation/consciousness: patient oriented x3 Neck Neck: Yes normal visual inspection and Yes no JVD Resp Effort & Inspection: normal respiratory effort Auscultation: clear to auscultation bilaterally, no crackles, no rales, no rhonchi and no wheezes Cardio Jugular venous distension: no JVD Rate: regular rate Rhythm: regular rhythm Heart sounds: S1 normal heart sound present, S2 normal heart sound present, no gallops, no murmurs and no rubs GI Inspection: Yes normal to inspection Neuro General: patient oriented x3 Extrem General: Yes normal to inspection and No no pedal edema Psych Appearance: grossly normal Mental Status: mental status grossly normal Speech and movement: Normal speech and movement present Office Procedures EKG Details: EKG shows normal sinus rhythm with right bundle-branch block with small Q-waves in inferior and anterolateral leads, most likely not significant [id number], Complete Assessment & Plan Assessment & Plan (1) Atypical chest pain: Code(s): R07.89 - Other chest pain Plan: Atypical chest pain this elderly gentleman with no obvious suggestion for myocardial ischemia. Although given his age would proceed with a stress echocardiogram to evaluate for prognostically significant obstructive coronary artery disease. This was discussed with him. No signs agrees. This test will be scheduled in the near future (2) Right bundle branch block: Code(s): I45.10 - Unspecified right bundle-branch block Plan: Right bundle-branch, which has remained unchanged. No specific therapy recommended. Follow up in the clinic 1 year's time, sooner p.r.n.. Thank you for allowing me to partake in his care Coding Level of Care Code Est Pt Level 3 (42451) Diagnoses Atypical chest pain R07.89 Right bundle branch block I45.10 CPT Codes EKG - CPT: 06803-[id number], Complete ([id number])
[2023-04-10 09:46] VITALS: BP 120/80; PULSE 79; BMI 29.3
== END 2023-04-10 10:34 | disposition home or self-care (01) ==
PROVIDERS: Visit Provider Internal Medicine Cardiovascular Disease
DX: R07.89 Other chest pain (principal); I45.10 Unspecified right bundle-branch block
CPT/HCPCS: 93010; 99213

== ENCOUNTER → 2023-04-10 09:16 | Outpatient (BNVA) | payer MEDICARE, OTHER, SELFPAY | PROVIDERS: Visit Provider Internal Medicine Cardiovascular Disease | DX: I45.10 Unspecified right bundle-branch block (principal); R07.89 Other chest pain | CPT/HCPCS: 93005; 99212 ==

== ENCOUNTER 2023-04-15 07:59 | Outpatient (REF) | payer MEDICARE, OTHER, SELFPAY ==
[2023-04-15 09:11] LABS: Prostate Specific Antigen 3.33 ng/mL (<0.05-4.0)
== END 2023-04-15 08:00 | disposition home or self-care (01) ==
LOC: HO.LAB 07:59
PROVIDERS: PCP Internal Medicine; Visit Provider Urology
DX: Z12.5 Encounter for screening for malignant neoplasm of prostate (principal); C61 Malignant neoplasm of prostate
CPT/HCPCS: 36415; 84153

== ENCOUNTER → 2023-04-24 12:29 | Outpatient (REF) | payer MEDICARE, OTHER, SELFPAY ==
--- NOTE | 2023-04-24 12:33 | CA_ITS ---
Transthoracic Echocardiogram Patient (Last, First, Middle): Waldemar Freeman A Gender: Male Date of : 1950 Age: 72 Procedure Date: 04/24/2023 Procedure Type: Transthoracic Echocardiogram Location: OP Height: 175.26 cm Weight: 89.81 kg BSA: 2.06 m2 Heart Rate: 61 bpm BP: 120 / 80 mmHg Sharepoint Trainer: YOLA Referring MD: Alexander Vale MD Symptoms: I45.10 - Unspecified right bundle-branch block Study Quality: Adequate w contrast ECG Rhythm: Sinus Conclusions: - The left ventricular systolic function is normal. The calculated ejection fraction is 64% by biplane method. - No obvious valvular pathology seen on this study. Findings Procedure Information Contrast agent, definity, is being given per protocol without apparent complications. Left Ventricle Normal left ventricular cavity size. There is normal left ventricular wall thickness. The left ventricular systolic function is normal. The calculated ejection fraction is 64% by biplane method. There is no evidence of regional wall motion abnormalities. Diastolic function is normal for age. Right Ventricle Mildly increased right ventricular cavity size. There is normal right ventricular systolic function. Atria Both atria are normal in size. Aortic Valve There is a normal trileaflet aortic valve. There is mild calcification of the aortic valve. There is no aortic valve stenosis. There is no aortic valve regurgitation. Mitral Valve The mitral valve appears normal. There is mild mitral valve regurgitation. There is no mitral valve stenosis. Pulmonic Valve The pulmonic valve is likely normal. Tricuspid Valve There is trace tricuspid valve regurgitation. There is no evidence of pulmonary hypertension. Great Vessels The asc aorta is normal in size. Venous The inferior vena cava was not well visualized. Pericardium/Pleural There is no evidence of pericardial effusion. Prior Study Comparison No significant change compared to prior study dated: 01/18/2021. Recommendations, Care & Conclusions No obvious valvular pathology seen on this study. Measurements 2D Linear Measurements IVSd: 0.86 0.6-0.9/0.6-1.0 cm LVIDd: 4.80 3.9-5.3/4.2-5.9 cm LVIDd Index: 2.33 2.4-3.2/2.2-3.1 cm/m2 LVIDs: 2.97 2.0-3.6 cm LVPWd: 0.72 0.7-1.1 cm LA Diam: 3.60 2.7-3.8/3.0-4.0 cm LAIDs Index: 1.75 1.5-2.3 cm/m2 LV Mass: 154.56 67-162/88-224 g LV Mass Index: 75.03 43-95/49-115 g/m2 LVOT Diam: 2.40 3.0+(-)1.3 cm 2D Systolic Function EF 4C: 65.20 >55% EF 2C: 63.30 >55% EF BiP: 64.40 >55% Mitral Valve MV Pk E: 0.58 MV PK A: 0.40 MV Decel Time: 162.00 E/A: 1.50 E'Lateral: 8.70 E'Medial: 6.31 E/E' Med: 9.20 E/E' Lat: 6.70 PHT: 47.00 MVA PHT: 4.68 Decel Crawford: 3.60 Aortic Valve AoV Pk Arvind: 1.26 AoV Pk Grad: 6.00 KRYSTINA: 3.73 LVOT LVOT Pk Arvind: 1.02 LVOT Mn Arvind: 0.77 LVOT VTI: 0.25 LVOT Pk Grad: 4.00 LVOT Mn Grad: 3.00 LVOT Diam: 2.40 LVOT Area: 4.52 Diastolic Function MV Pk E: 0.58 MV Pk A: 0.40 E/A: 1.50 E'Medial: 6.31 E/E' Med: 9.20 E' Laterial: 8.70 E/E' Lat: 6.70 Right Ventricle TAPSE (mm): 22.40 TVS' Arvind: 10.10 Tricuspid Valve TR Pk Arvind: 1.99 TR Pk Grad: 16.00 RA Press: 3.00 RVSP: 19.00 Great Vessels Aorta Sinus of Valsalva: 3.40 2.0-3.5 cm Ao Asc: 3.50 2.1-3.4 cm Pulmonary Valve PV Pk Arvind: 1.12 Peak PV Grad: 5.00 Updated in Other Vendor System with Status of Final Jesse Lim MD electronically signed on 04/26/2023 1:38:31 PM with status of Final
== END ==
LOC: HO.CARD 12:29
PROVIDERS: PCP Internal Medicine; Visit Provider Internal Medicine Cardiovascular Disease
DX: I45.10 Unspecified right bundle-branch block (principal)
CPT/HCPCS: 93306; Q9957

== ENCOUNTER → 2023-04-24 12:33 | Outpatient (BNV) | payer MEDICARE, OTHER, SELFPAY | PROVIDERS: PCP Internal Medicine; Visit Provider Internal Medicine | DX: I34.0 Nonrheumatic mitral (valve) insufficiency (principal); I35.8 Other nonrheumatic aortic valve disorders | CPT/HCPCS: 93306 ==

== ENCOUNTER 2023-04-30 11:58 | Outpatient (AMB) | payer MEDICARE, OTHER, SELFPAY ==
--- NOTE | 2023-04-30 11:59 | MHC.OFFVIS ---
Intake Intake Visit Reasons: 3m/PSA(set) Allergies Sulfa (Sulfonamide Antibiotics) Allergy (Unknown, Verified 03/07/23 06:57) rash Medication List - Last Reconciled 04/30/23 by Gonzalez Cartagena MD finasteride 5 mg PO DAILY 90 days latanoprost 0.005% 1 drp ophthalmic-Right BEDTIME HPI HPI Comments History of Present Illness Details Anthony is a pleasant male. He is a patient of Dr. Flowers. He is seen for the following urologic issue - prostate cancer Telemedicine Evaluation 15 min Consultation Doximity Lorenzo Video attempted PSA relatively stable Continues finasteride Would prefer Q three-month follow-up Prostate cancer group 1 - active surveillance February 2019, 05/3023 Grade Group1 PSA 02/24 4.5, 07/26 6.0, 10/25 3.4, 03/27 2.75, 07/27 2.3, 01/26 2.7, 09/27 3.1, 01/27 3.5, 04/30 3.3 Has undergone single biopsy with MRI follow-up in November 2020 Prostate cancer diagnosed by Dr. Hoang February 2019, PSA at diagnosis 6.2 Initial pathology - [place] 3 + 3, 3/12 cores, maximum core 40% Imaging MRI 11/25 55 g prostate, apical right lesion, no evidence of extracapsular extension. PI-RADS 3 Repeat Biopsy 05/30 Deb score:? 6 (3+3) (e 2.5 and? c3 3.5) Tumor quantitation: Number cores positive: 2 Total number of cores: 13 with prostatic tissue % of tissue involved: 1.77% of all prostatic tissue examined Periprostatic fat inv.: Not identified Seminal vesicle inv.: Not identified Perineural inv.: Not identified Lymphovascular invasion: Not identified Family history positive - grandfather Initial therapy - active surveillance with finasteride PFSH Medical History Right bundle branch block (RBBB) Family history of prostate cancer Elevated PSA Prostate cancer Surgical History Hx of prostate biopsy Hx laparoscopic cholecystectomy History of esophagogastroduodenoscopy (EGD) History of colonoscopy History of vasectomy Family History Father No problems noted. Mother No problems noted. Paternal Grandfather Prostate cancer Social History Household Members: Spouse Housing: House Are you a primary child care cook to a significant other at home: No Do you presently have visiting nurse or other home services: No Alcohol intake: unknown Patient Tobacco Use Status: Former Tobacco user Quit Date: quit 35 years ago service: Yes Current occupational status: retired Review of Systems Const Denies chills and Denies fever(s) Card Reports no additional complaints and Denies syncope Resp Denies cough GI Denies abdominal pain and Denies heartburn Reports as per HPI and Denies change in libido Neuro Denies syncope Psych Denies change in libido Endo Denies change in libido Physical Exam Const General: cooperative, healthy appearing, comfortable and no acute distress Orientation/consciousness: patient oriented x3 HEENT Face and sinus: Yes normal facial exam Mouth: moist mucous membranes Neck Neck: Yes normal visual inspection, Yes full ROM and Yes trachea midline Chest Chest palpation & inspection: normal inspection of the chest Resp Effort & Inspection: normal respiratory effort, able to speak in complete sentences and no respiratory distress GI Inspection: Yes normal to inspection Back/Spine/Pelvis Cervical Spine: normal cervical lordosis Thoracic/Lumbar Spine: thoracic and lumbar spine normal to inspection Skin General skin exam: no rashes or lesions noted Neuro General: patient oriented x3, gait normal, tone normal and moves all extremities Extrem General: Yes normal to inspection and Yes capillary refill normal Assessment & Plan Assessment & Plan (1) Prostate cancer: Comment: [id number] Grade group 1 PSA stable 2022 repeat biopsy grade group 1 Code(s): C61 - Malignant neoplasm of prostate Plan Three month follow-up PSA Orders: Orders Prostate Specific Antigen 3 Months C61 - Malignant neoplasm of prostate Patient Instructions: Imaging studies, laboratory and physical exam results were discussed and reviewed in detail. No major barriers to patient understanding were identified. An opportunity to ask questions regarding the treatment plan was provided. All questions were answered. The patient expressed understanding and agreement with the above treatment plan. The patient is aware they should contact our office by phone for worsening of their current condition or the appearance of new urologic symptoms. Compliance is encouraged with any medications and followup testing that is ordered. It is a privilege to participate in the urologic care of your patient. If you have any questions or concerns regarding treatment for the above conditions, or other urologic issues, please do not hesitate to contact me. The office telephone contact is [phone]. This note is constructed using voice recognition software. While every effort has been made to ensure accuracy electrical equipment assembler errors may have been included. Yours sincerely, Dr Gonzalez Cartagena MD, [facility] - Urology Providers of Expert, Compassionate Care for the Genitourinary System Telehealth Telehealth Location of provider rendering services: practice address Location of patient: address on file Patient Identification confirmed using: Name, : Yes Telehealth method: video Patient verbally consented to treatment: Yes Patient verbally consented to billing insurance company: Yes Patient informed of any privacy concerns related to visit: Yes Coding Level of Care Code Tele Est Pt Level 3 (00635) Diagnoses Prostate cancer C61
== END 2023-04-30 13:03 | disposition home or self-care (01) ==
LOC: HO.HUSH 11:58
PROVIDERS: PCP Internal Medicine; Visit Provider Urology
DX: C61 Malignant neoplasm of prostate (principal)
CPT/HCPCS: 99213

== ENCOUNTER → 2023-04-30 11:58 | Outpatient (BNVA) | payer MEDICARE, OTHER, SELFPAY | PROVIDERS: PCP Internal Medicine; Visit Provider Urology ==

== ENCOUNTER 2023-05-15 13:55 | Outpatient (AMB) | payer MEDICARE, OTHER, SELFPAY ==
[2023-05-15 14:30] VITALS: BP 114/74; PULSE 75; BMI 27.9
--- NOTE | 2023-05-15 14:30 | A.OFFVIS_ITS ---
Intake Vital Signs 05/15/23 14:30 Height 5 ft 9 in Weight 189 lb 2.506 oz BMI 27.9 BP 114/74 Pulse 75 Pulse Source Pulse Oximeter Intake Visit Reasons: follow-up echo results Room Inspector Required: No Allergies Sulfa (Sulfonamide Antibiotics) Allergy (Unknown, Verified 05/15/23 14:32) rash Medication List - Last Reconciled 05/15/23 by Alesia Burgos NP-Pily finasteride 5 mg PO DAILY 90 days latanoprost 0.005% 1 drp ophthalmic-Right BEDTIME HPI follow-up echo results HPI Details Fareed is a 72-year-old male with past medical history of prostate CA, right bundle branch block, atypical chest pain who presents for follow-up after recent echo. Today he reports that he will get a random pressure in his mid chest lasting seconds and resolving. He states that it does not happen often and it does not follow any set pattern. It can occur at rest or with activity. He denies any symptoms brought on by physical activity. He is active with his house and yd work. In the summer he says he does yd work including raking and mode which he tolerates well. This past winter he has been shoveling his driveway and walk way without any concerning symptoms. He never notices his chest discomfort with these activities. He climb stairs without symptoms. No shortness of breath, palpitations, presyncope, syncope, PND, orthopnea or edema. [facility] Medical History Right bundle branch block (RBBB) Family history of prostate cancer Elevated PSA Prostate cancer Surgical History Hx of prostate biopsy Hx laparoscopic cholecystectomy History of esophagogastroduodenoscopy (EGD) History of colonoscopy History of vasectomy Family History Father Heart attack Mother No problems noted. Paternal Grandfather Prostate cancer Social History Household Members: Spouse Housing: House Are you a primary animal care worker to a significant other at home: No Do you presently have visiting nurse or other home services: No Alcohol intake: unknown Patient Tobacco Use Status: Former Tobacco user Quit Date: quit 35 years ago service: Yes Current occupational status: retired Review of Systems Const All systems reviewed & are unremarkable except as noted in HPI and below ENT Denies dizziness Card Reports chest pain, Denies chest pain at rest, Denies chest pain with activity, Denies rapid heart rate, Denies pedal edema, Denies edema, Denies leg edema, Denies lightheadedness, Denies palpitations, Denies dyspnea, Denies dyspnea on exertion and Denies orthopnea Resp Denies cough, Denies dyspnea and Denies dyspnea on exertion GI Denies hematochezia and Denies change in stool character Musc Denies abnormal gait, Denies limited range of motion, Denies muscle cramps, Denies muscle weakness, Denies numbness, Denies radiating pain into limb, Denies stiffness and Denies tingling Neuro Denies abnormal gait, Denies dizziness, Denies numbness and Denies tingling Endo Denies palpitations Physical Exam Vital Signs: Last Vital Signs Pulse 75 05/15/23 14:30 BP 114/74 05/15/23 14:30 BMI result Body Mass Index 27.9 Const General: cooperative, healthy appearing, comfortable and no acute distress Orientation/consciousness: patient oriented x3 Neck Neck: Yes normal visual inspection and Yes no JVD Resp Effort & Inspection: normal respiratory effort Auscultation: clear to auscultation bilaterally, no rales, no rhonchi and no wheezes Cardio Jugular venous distension: no JVD Rate: regular rate Rhythm: regular rhythm Heart sounds: S1 normal heart sound present, S2 normal heart sound present, no murmurs and no rubs Neuro General: patient oriented x3 Extrem General: Yes normal to inspection, No no pedal edema and No calf tenderness Psych Appearance: grossly normal Mental Status: mental status grossly normal Speech and movement: Normal speech and movement present Assessment & Plan Assessment & Plan (1) Atypical chest pain: Code(s): R07.89 - Other chest pain Plan: Reports of atypical sounding chest discomfort. No chest discomfort brought on by exertional activities. No known history of coronary artery disease. He has no significant cardiac risk factors with the exception of age. EKG done 04/10/2023 shows normal sinus rhythm with right bundle branch block, possible lateral and inferior infarcts, age undetermined, rate 79. Appearance of EKG is unchanged from prior. An echocardiogram was done 04/24/2023 showing EF 64%, no valve abnormalities and no regional wall motion abnormalities. He did have a nuclear stress test on 02/22/2021 showing normal myocardial perfusion imaging. No need for repeat stress test at present with his atypical symptoms. Heart rate and blood pressure are normal range. All the above reviewed with him. Spent time reviewing signs and symptoms of angina. Emergency care if ever needed for symptoms. Notify this office if he starts developing any concerning change to his symptoms. Cardiology office visit in 1 year, sooner if needed. (2) Right bundle branch block: Code(s): I45.10 - Unspecified right bundle-branch block Plan: Present on EKG, not new Plan Time spent on chart review, documentation, interview and assessment Coding Level of Care Code Est Pt Level 3 (30252) Diagnoses Atypical chest pain R07.89 Right bundle branch block I45.10 Time Spent (min) 24
== END 2023-05-15 15:00 | disposition home or self-care (01) ==
PROVIDERS: PCP Internal Medicine; Visit Provider Nurse Practitioner Family
DX: R07.89 Other chest pain (principal); I45.10 Unspecified right bundle-branch block
CPT/HCPCS: 99213

== ENCOUNTER → 2023-05-15 13:55 | Outpatient (BNVA) | payer MEDICARE, OTHER, SELFPAY | PROVIDERS: PCP Internal Medicine; Visit Provider Nurse Practitioner Family | DX: R07.89 Other chest pain (principal); I45.10 Unspecified right bundle-branch block | CPT/HCPCS: 99212 ==

== ENCOUNTER 2023-07-23 06:15 | Outpatient (REF) | payer MEDICARE, OTHER, SELFPAY ==
[2023-07-23 08:14] LABS: Prostate Specific Antigen 3.52 ng/mL (<0.05-4.0)
== END 2023-07-23 06:16 | disposition home or self-care (01) ==
LOC: HO.LAB 06:15
PROVIDERS: PCP Internal Medicine; Visit Provider Urology
DX: Z12.5 Encounter for screening for malignant neoplasm of prostate (principal); C61 Malignant neoplasm of prostate
CPT/HCPCS: 36415; 84153

== ENCOUNTER 2023-07-31 11:00 | Outpatient (AMB) | payer MEDICARE, OTHER, SELFPAY ==
--- NOTE | 2023-07-31 11:02 | MHC.OFFVIS ---
Intake Visit Reasons: 3m/PSA(set) Confirmed Intake Note: Patient is Present for Telephone Follow Up For Urology Med: Finasteride Antibiotic Allergy: Sulfa Blood Thinner: None Allergies Sulfa (Sulfonamide Antibiotics) Allergy (Unknown, Verified 05/15/23 14:32) rash Medication List - Last Reconciled 07/31/23 by Gonzalez Cartagena MD finasteride 5 mg PO DAILY 90 days latanoprost 0.005% 1 drp ophthalmic-Right BEDTIME HPI Comments Details: Anthony is a pleasant male. He is a patient of Dr. Flowers. He is seen for the following urologic issue - prostate cancer Telemedicine Evaluation 15 min Consultation [employer] Lorenzo Video attempted PSA relatively stable Continues finasteride Would prefer Q three-month follow-up Prostate cancer group 1 - 02/23, 05/3023 Grade Group1 - active surveillance PSA 02/24 4.5, 07/26 6.0, 10/25 3.4, 03/27 2.75, 07/27 2.3, 01/26 2.7, 09/27 3.1, 01/27 3.5, 04/30 3.3, 07/29 3.5 Has undergone single biopsy with MRI follow-up in November 2020 Prostate cancer diagnosed by Dr. Hoang February 2019, PSA at diagnosis 6.2 Initial pathology - [place] 3 + 3, 3/12 cores, maximum core 40% Imaging MRI 11/25 55 g prostate, apical right lesion, no evidence of extracapsular extension. PI-RADS 3 Repeat Biopsy 05/30 [place] score:?6 (3+3) (e 2.5 and? c3 3.5) Number cores positive: 2 Total number of cores: 13 with prostatic tissue % of tissue involved: 1.77% of all prostatic tissue examined Periprostatic fat inv.: Not identified Seminal vesicle inv.: Not identified Perineural inv.: Not identified Lymphovascular invasion: Not identified Family history positive - grandfather Initial therapy - active surveillance with finasteride PFSH Medical History Right bundle branch block (RBBB) Family history of prostate cancer Elevated PSA Prostate cancer Surgical History Hx of prostate biopsy Hx laparoscopic cholecystectomy History of esophagogastroduodenoscopy (EGD) History of colonoscopy History of vasectomy Family History Father Heart attack Mother No problems noted. Paternal Grandfather Prostate cancer Social History Household Members: Spouse Housing: House Are you a primary healthcare sales representative to a significant other at home: No Do you presently have visiting nurse or other home services: No Alcohol intake: unknown Patient Tobacco Use Status: Former Tobacco user Quit Date: quit 35 years ago service: Yes Current occupational status: retired Review of Systems Const All systems reviewed & are unremarkable except as noted in HPI and below Reports no additional complaints Resp Reports no additional complaints GI Reports no additional complaints Reports as per HPI Musc Reports no additional complaints Physical Exam Telemedicine evaluation Appropriate responses Regular breathing rate and rhythm HEENT Head: Yes normal to inspection Ears: hearing grossly normal bilaterally Eyes General: appearance normal, both eyes and all related structures Neck Neck: Yes normal visual inspection Chest Chest palpation & inspection: normal inspection of the chest Resp Effort & Inspection: normal respiratory effort and able to speak in complete sentences Telehealth Telehealth Location of provider rendering services: practice address Location of patient: address on file Patient Identification confirmed using: Name, : Yes Telehealth method: video Patient verbally consented to treatment: Yes Patient verbally consented to billing insurance company: Yes Patient informed of any privacy concerns related to visit: Yes Assessment & Plan Assessment & Plan (1) Prostate cancer: Comment: 201819 Grade group 1 PSA stable 2022 repeat biopsy grade group 1 Code(s): C61 - Malignant neoplasm of prostate Category: Medical Plan He prefers to be seen every 3 months regarding her active surveillance was prostate cancer Orders: Orders Prostate Specific Antigen 3 Months C61 - Malignant neoplasm of prostate Patient Instructions: Imaging studies, laboratory and physical exam results were discussed and reviewed in detail. No major barriers to patient understanding were identified. An opportunity to ask questions regarding the treatment plan was provided. All questions were answered. The patient expressed understanding and agreement with the above treatment plan. The patient is aware they should contact our office by phone for worsening of their current condition or the appearance of new urologic symptoms. Compliance is encouraged with any medications and followup testing that is ordered. It is a privilege to participate in the urologic care of your patient. If you have any questions or concerns regarding treatment for the above conditions, or other urologic issues, please do not hesitate to contact me. The office telephone contact is [phone]. This note is constructed using voice recognition software. While every effort has been made to ensure accuracy street light servicer errors may have been included. Yours sincerely, Dr Gonzalez Cartagena MD, [facility] - Urology Providers of Expert, Compassionate Care for the Genitourinary System Coding Level of Care Code Tele Est Pt Level 3 (11109) Complex EM visit Add On G2211 Diagnoses Prostate cancer C61
== END 2023-07-31 11:23 | disposition home or self-care (01) ==
LOC: HO.HUSH 11:00
PROVIDERS: PCP Internal Medicine; Visit Provider Urology
DX: C61 Malignant neoplasm of prostate (principal)
CPT/HCPCS: 99213; G2211

== ENCOUNTER → 2023-07-31 11:00 | Outpatient (BNVA) | payer MEDICARE, OTHER, SELFPAY | PROVIDERS: PCP Internal Medicine; Visit Provider Urology ==

== ENCOUNTER 2023-10-20 06:06 | Outpatient (REF) | payer MEDICARE, OTHER, SELFPAY | END 2023-10-20 06:07 | disposition home or self-care (01) | LOC: HO.LAB 06:06 | PROVIDERS: PCP Internal Medicine; Visit Provider Urology | DX: C61 Malignant neoplasm of prostate (principal); Z12.5 Encounter for screening for malignant neoplasm of prostate | CPT/HCPCS: 36415; 84153 ==

== ENCOUNTER 2023-10-30 08:04 | Outpatient (AMB) | payer MEDICARE, OTHER, SELFPAY ==
--- NOTE | 2023-10-30 08:30 | A.OFFVIS_ITS ---
Intake Visit Reasons: 3M PSA(psa?) Intake Note: Patient is Present for Follow Up PSA Urology Medication: Finasteride Antibiotic Allergies: Sulfa Blood Thinners: none Medical Record Coder Required: No Allergies Sulfa (Sulfonamide Antibiotics) Allergy (Unknown, Verified 10/30/23 08:33) rash HPI Comments Details: Anthony is a pleasant male. He is a patient of Dr. Flowers. He is seen for the following urologic issue - prostate cancer PSA stable Continues finasteride - encouraged to move to 1 month on, 1 month off use of finasteride Would prefer Q three-month follow-up Prostate cancer group 1 - 02/23, 05/3023 Grade Group1 - active surveillance PSA 02/24 4.5, 07/26 6.0, 10/25 3.4, 03/27 2.75, 07/27 2.3, 01/26 2.7, 09/27 3.1, 01/27 3.5, 04/30 3.3, 07/29 3.5, 10/28 3.6 Has undergone single biopsy with MRI follow-up in November 2020 Prostate cancer diagnosed by Dr. Hoang February 2019, PSA at diagnosis 6.2 Initial pathology - [place] 3 + 3, 3/12 cores, maximum core 40% Imaging MRI 11/25 55 g prostate, apical right lesion, no evidence of extracapsular extension. PI-RADS 3 Repeat Biopsy 05/30 [place] score:?6 (3+3) (e 2.5 and? c3 3.5) Number cores positive: 2 Total number of cores: 13 with prostatic tissue % of tissue involved: 1.77% of all prostatic tissue examined Periprostatic fat inv.: Not identified Seminal vesicle inv.: Not identified Perineural inv.: Not identified Lymphovascular invasion: Not identified Family history positive - grandfather Initial therapy - active surveillance with finasteride [facility] Medical History Right bundle branch block (RBBB) Family history of prostate cancer Elevated PSA Prostate cancer Surgical History Hx of prostate biopsy Hx laparoscopic cholecystectomy History of esophagogastroduodenoscopy (EGD) History of colonoscopy History of vasectomy Family History Father Heart attack Mother No problems noted. Paternal Grandfather Prostate cancer Social History Household Members: Spouse Housing: House Are you a primary healthcare administration internship to a significant other at home: No Do you presently have visiting nurse or other home services: No Alcohol intake: unknown Patient Tobacco Use Status: Former Tobacco user service: Yes Current occupational status: retired Review of Systems Const Denies chills and Denies fever(s) Card Reports no additional complaints and Denies syncope Resp Denies cough GI Denies abdominal pain and Denies heartburn Reports as per HPI and Denies change in libido Neuro Denies syncope Psych Denies change in libido Endo Denies change in libido Physical Exam Const General: cooperative, healthy appearing, comfortable and no acute distress Orientation/consciousness: patient oriented x3 HEENT Face and sinus: Yes normal facial exam Mouth: moist mucous membranes Neck Neck: Yes normal visual inspection, Yes full ROM and Yes trachea midline Chest Chest palpation & inspection: normal inspection of the chest Resp Effort & Inspection: normal respiratory effort, able to speak in complete sentences and no respiratory distress GI Inspection: Yes normal to inspection Back/Spine/Pelvis Cervical Spine: normal cervical lordosis Thoracic/Lumbar Spine: thoracic and lumbar spine normal to inspection Skin General skin exam: no rashes or lesions noted Neuro General: patient oriented x3, gait normal, tone normal and moves all extremities Extrem General: Yes normal to inspection and Yes capillary refill normal Assessment & Plan Assessment & Plan (1) Prostate cancer: Comment: 201819 Grade group 1 PSA stable 2022 repeat biopsy grade group 1 Code(s): C61 - Malignant neoplasm of prostate Category: Medical Plan Three month follow-up PSA Orders: Orders Prostate Specific Antigen 3 Months C61 - Malignant neoplasm of prostate Patient Instructions: Imaging studies, laboratory and physical exam results were discussed and reviewed in detail. No major barriers to patient understanding were identified. An opportunity to ask questions regarding the treatment plan was provided. All questions were answered. The patient expressed understanding and agreement with the above treatment plan. The patient is aware they should contact our office by phone for worsening of their current condition or the appearance of new urologic symptoms. Compliance is encouraged with any medications and followup testing that is ordered. It is a privilege to participate in the urologic care of your patient. If you have any questions or concerns regarding treatment for the above conditions, or other urologic issues, please do not hesitate to contact me. The office telephone contact is [phone]. This note is constructed using voice recognition software. While every effort has been made to ensure accuracy wrecker operator errors may have been included. Yours sincerely, Dr Gonzalez Cartagena MD, [facility] - Urology Providers of Expert, Compassionate Care for the Genitourinary System Coding Level of Care Code Est Pt Level 3 (00198) Diagnoses Prostate cancer C61
== END 2023-10-30 08:52 | disposition home or self-care (01) ==
PROVIDERS: PCP Internal Medicine; Visit Provider Urology
DX: C61 Malignant neoplasm of prostate (principal)
CPT/HCPCS: 99213

== ENCOUNTER → 2023-10-30 08:04 | Outpatient (BNVA) | payer MEDICARE, OTHER, SELFPAY | PROVIDERS: PCP Internal Medicine; Visit Provider Urology | DX: C61 Malignant neoplasm of prostate (principal); Z80.42 Family history of malignant neoplasm of prostate | CPT/HCPCS: 99212 ==

== ENCOUNTER 2024-01-21 06:17 | Outpatient (REF) | payer MEDICARE, OTHER, SELFPAY ==
[2024-01-21 08:17] LABS: Prostate Specific Antigen 4.11 ng/mL (<0.05-4.0)
== END 2024-01-21 06:18 | disposition home or self-care (01) ==
LOC: HO.LAB 06:17
PROVIDERS: PCP Internal Medicine; Visit Provider Urology
DX: C61 Malignant neoplasm of prostate (principal); Z12.5 Encounter for screening for malignant neoplasm of prostate
CPT/HCPCS: 36415; 84153

== ENCOUNTER 2024-01-30 08:38 | Outpatient (AMB) | payer MEDICARE, OTHER, SELFPAY ==
--- NOTE | 2024-01-30 08:39 | MHC.OFFVIS ---
Intake Visit Reasons: 3m/PSA(set) Intake Note: Patient is present for PSA Telephone Follow Up Urology Med: Finasteride Antibiotic Allergy: Sulfa Blood Thinner:none Recent PSA: 01/21/2024 4.11 Drycleaner Required: No Accompanied by: Self / Same As Patient Allergies Sulfa (Sulfonamide Antibiotics) Allergy (Unknown, Verified 01/30/24 08:39) rash Medication List - Last Reconciled 01/30/24 by Gonzalez Cartagena MD finasteride 5 mg PO DAILY 90 days latanoprost 0.005% 1 drp ophthalmic-Right BEDTIME HPI Comments Details: Anthony is a pleasant male. He is a patient of Dr. Flowers. He is seen for the following urologic issue - prostate cancer Telemedicine Evaluation 15 min Consultation [employer] Lorenzo Video PSA slight move but lab work checked during month off Continues finasteride - encouraged to move to 1 month on, 1 month off use of finasteride Three-month follow-up prostate MRI Prostate cancer group 1 - 02/23, 05/3023 Grade Group1 - active surveillance PSA 02/24 4.5, 07/26 6.0, 10/25 3.4, 03/27 2.75, 07/27 2.3, 01/26 2.7, 09/27 3.1, 01/27 3.5, 04/30 3.3, 07/29 3.5, 10/28 3.6, 01/28 4.1 Has undergone single biopsy with MRI follow-up in November 2020 Prostate cancer diagnosed by Dr. Hoang February 2019, PSA at diagnosis 6.2 Initial pathology - [place] 3 + 3, 3/12 cores, maximum core 40% Imaging MRI 11/25 55 g prostate, apical right lesion, no evidence of extracapsular extension. PI-RADS 3 Repeat Biopsy 05/30 [place] score:?6 (3+3) (e 2.5 and? c3 3.5) Number cores positive: 2 Total number of cores: 13 with prostatic tissue % of tissue involved: 1.77% of all prostatic tissue examined Periprostatic fat inv.: Not identified Seminal vesicle inv.: Not identified Perineural inv.: Not identified Lymphovascular invasion: Not identified Family history positive - grandfather Initial therapy - active surveillance with finasteride [facility] Medical History Right bundle branch block (RBBB) Family history of prostate cancer Elevated PSA Prostate cancer Surgical History Hx of prostate biopsy Hx laparoscopic cholecystectomy History of esophagogastroduodenoscopy (EGD) History of colonoscopy History of vasectomy Family History Father Heart attack Mother No problems noted. Paternal Grandfather Prostate cancer Social History Household Members: Spouse Housing: House Are you a primary floor care technician to a significant other at home: No Do you presently have visiting nurse or other home services: No Alcohol intake: unknown Patient Tobacco Use Status: Former Tobacco user service: Yes Current occupational status: retired Review of Systems Const All systems reviewed & are unremarkable except as noted in HPI and below Reports no additional complaints Resp Reports no additional complaints GI Reports no additional complaints Reports as per HPI Musc Reports no additional complaints Physical Exam Telemedicine evaluation Appropriate responses Regular breathing rate and rhythm HEENT Head: Yes normal to inspection Ears: hearing grossly normal bilaterally Eyes General: appearance normal, both eyes and all related structures Neck Neck: Yes normal visual inspection Chest Chest palpation & inspection: normal inspection of the chest Resp Effort & Inspection: normal respiratory effort and able to speak in complete sentences Telehealth Telehealth Telehealth [facility]: [facility] Location of provider rendering services: practice address Location of patient: address on file Patient Identification confirmed using: Name, : Yes Telehealth method: video Patient verbally consented to treatment: Yes Patient verbally consented to billing insurance company: Yes Patient informed of any privacy concerns related to visit: Yes Minutes spent on Phone/Video with Pt.: 15 Assessment & Plan Assessment & Plan (1) Prostate cancer: Comment: 201819 Grade group 1 PSA stable 2022 repeat biopsy grade group 1 Code(s): C61 - Malignant neoplasm of prostate Category: Medical Plan Three-month follow-up prostate MRI Orders: Orders PSA,Total (Free>4and<10) 3 Months C61 - Malignant neoplasm of prostate MR pelvis wo/w con 3 Months C61 - Malignant neoplasm of prostate Patient Instructions: Imaging studies, laboratory and physical exam results were discussed and reviewed in detail. No major barriers to patient understanding were identified. An opportunity to ask questions regarding the treatment plan was provided. All questions were answered. The patient expressed understanding and agreement with the above treatment plan. The patient is aware they should contact our office by phone for worsening of their current condition or the appearance of new urologic symptoms. Compliance is encouraged with any medications and followup testing that is ordered. It is a privilege to participate in the urologic care of your patient. If you have any questions or concerns regarding treatment for the above conditions, or other urologic issues, please do not hesitate to contact me. The office telephone contact is [phone]. This note is constructed using voice recognition software. While every effort has been made to ensure accuracy railway patrol officer errors may have been included. Yours sincerely, Dr Gonzalez Cartagena MD, [facility] - Urology Providers of Expert, Compassionate Care for the Genitourinary System Coding Level of Care Code Tele Est Pt Level 3 (91962) Diagnoses Prostate cancer C61
== END 2024-01-30 09:12 | disposition home or self-care (01) ==
LOC: HO.HUSH 08:38
PROVIDERS: PCP Internal Medicine; Visit Provider Urology
DX: C61 Malignant neoplasm of prostate (principal)
CPT/HCPCS: 99213

== ENCOUNTER → 2024-01-30 08:38 | Outpatient (BNVA) | payer MEDICARE, OTHER, SELFPAY | PROVIDERS: PCP Internal Medicine; Visit Provider Urology ==

== ENCOUNTER 2024-04-12 07:54 | Outpatient (AMB) | payer MEDICARE, OTHER, SELFPAY ==
--- OUTSIDE RECORDS SUMMARY | 2024-04-12 07:55 | XMS_ITS ---
Author Organization [facility] Address [address] [place] [phone] Care Team Providers Care Crop Consultant Name Role Phone Luis F Flowers MD Primary Care Provider Unavailab Adolfo Quiroz Jr Unavailable REASON FOR VISIT pathology Encounters Encounter Location Date Provider Diagnosis [facility] [address] [place] [id number] 03/13/2023 Adolfo Oneil Jr PLAN OF TREATMENT No Information
--- OUTSIDE RECORDS SUMMARY | 2024-04-12 07:56 | XMS_ITS | Patient Health Record ---
Author Organization [facility] Address [address] [place] [id number] Care Team Providers Care Hydraulic Plumber Helper Name Role Phone Luis F Flowers MD Primary Care Provider Adolfo Gonzalez Jr Unavailable [phone] ALLERGIES Allergen (clinical drug ingredient) Drug/Non Drug Allergy documented on EMR Reaction Allergy Type Onset Date Status Sulfa Unknown Drug Allergy Active REASON FOR REFERRAL No Information MEDICATIONS Medication SIG (Take, Route, Frequency, Duration) Notes Start Date End Date Status Latanoprost 0.005 % Ophthalmic for 90 Active Finasteride 5 MG Oral for 90 A ctive MiraLax (colon prep) 17 GM/SCOOP mixed with Gatorade or Crystal Light Orally begin at 5:00 p.m. the day before the procedure for 1 day 01/08/2023 Active IMMUNIZATIONS Vaccine Route Administration Date Status Comme nts Influenza Unknown 12/06/2016 Administered Influenza Unknown 01/06/2023 Administered SOCIAL HISTORY Tobacco Use: Social History Observation Description Date Details (start date - stop date) Former Smoker NA - NA Sex Assigned At : Social History Observation Description Sex Assigned At Unknown Tobacco Use/Smoking Question Answer Notes Patient is a former smoker When did you stop smoking? over 30 years ago How long has it been since you last smoked? > 10 years Alcohol Screen Question Answer Notes Did you have a drink contain ing alcohol in the past year? Yes How often did you have a dri nk containing alcohol in the past year? 2 to 4 times a month (2 points) How many drinks did you have on a typical day when you were drinking in the past year? 1 or 2 drinks (0 point) How often did you have 6 or more drinks on one occasion in the past year? Never (0 point) Points 2 Interpretation Negative PROBLEMS Problem Type ICD Code Onset Dates Problem Status W/U Status Risk SNOMED Code Notes Problem Colon cancer screening (Z12.11) Active confirmed 265745831 Problem prison (current) use of aspirin (Z79.82) Active confirmed 378314625 PLAN OF TREATMENT Future Test Test Name Order Date COLONOSCOPY 12/12/2011 COLONOSCOPY 07/31/2017 COLONOSCOPY 01/08/2023 Insurance Providers Payer Name Payer Address Payer Phone Subscriber Number Group Number Insured Name Patient Relationship to Insured Coverage Start Date Coverage End Date MED[place] OF [place] [address] [place] [address] [id number] TAMEKA CAN Self - patient is the insured FOR LIFE [address] [place] [address] [id number] TAMEKA CAN Self - patient is the insured MEDICAL (GENERAL) HISTORY Medical History History ICD Code Colon polyps, colonoscopy 09/24/17, tubul ar adenoma, five-year followup Elevated intraocular pressure Right bundle branch block prostate cancer Surgical History Surgery Date(Month/Year) vasectomy cystoscopy Prostate biopsy Cholecystectomy
--- OUTSIDE RECORDS SUMMARY | 2024-04-12 07:56 | XMS_ITS | Continuity of Care Document ---
Author Name [facility] Organization [facility] Care Team Providers Care Senior Industrial Engineer Name Role Phone [facility] Unavailable Unavailable Problems Combined list of problems from Department of Defense and Veterans Affairs facilities. It does not include entries that were removed or entered in error. Problem Status Onset Date Problem Type Date of Resolution Comments Source Diagnosis: ICD-10-CM Z46.1 Encounter for fitting and adjustment of hearing aid Active Diagnosis [facility] [place] [facility] Medications Combined list of outpatient medications from Department of Defense and Veterans Affairs facilities.Medications provided include 1) outpatient medications from the last 15 months, and 2) patient-reported medications. Medication Details Route Status Patient Instructions Prescription Expires Prescription Number Last Dispense Date Ordering Provider Order Date Order Qty Source LATANOPROST (LATANOPROS T), 0.005%, DROPS, OPHTHALMIC, u.sit., 2.5 ml DROP BTL Active [id number] 09/08/19 2 4 2023 7.5 Pharmac y Data Transac tion Service Facilit y Immunizations Combined list of available immunizations from the Department of Defense and Veterans Affairs facilities. Immunization Series Date Given Administered By Site Reaction Lot Number CVX Code Drug Workforce Management Manager Status Comments Source COVID-19, mRNA, LNP-S, PF, 30 mcg/0.3 mL dose 2020 MICHEL, [employer] [place] (PFR) Not Given COVID-19, mRNA, LNP-S, PF, 30 mcg/0.3 mL dose [facility] COVID-19 (PFIZER), MRNA, LNP-S, PF, 30 MCG/0.3 ML DOSE 2 2020 208 complet ed PFR; [id number]; 1 [place] [facility] [place] [facility] COVID-19 (PFIZER), MRNA, LNP-S, PF, 30 MCG/0.3 ML DOSE 1 2020 208 complet ed PFR; [id number]; 1 [place] [facility] [place] [facility] Pneumococcal conjugate PCV 13 2016 PANKAJ, () Not Given Pneumococ frances conjugate PCV 13 DoD Tdap 2014 ROSEANN, () Not Given Tdap DoD tuberculin skin test; purified protein derivative solution, intradermal 1 2003 Unknown, Provider [id number] 96 Sanofi Pasteur ([facility]) complet ed tuberculi n skin test; purified protein derivativ e solution, intraderm al DoD typhoid vaccine, parenteral, other than acetone-kille d, dried 1 2003 Unknown, Provider [id number] Sanofi Pasteur ([facility]) complet ed typhoid vaccine, parentera l, other than acetone-k illed, dried DoD influenza virus vaccine, whole virus 1 2002 Unknown, Provider [id number] 16 [employer] (PW) complet ed influenza virus vaccine, whole virus DoD tuberculin skin test; purified protein derivative solution, intradermal 1 2002 Unknown, Provider [id number] 96 Sanofi Pasteur ([facility]) complet ed tuberculi n skin test; purified protein derivativ e solution, intraderm al DoD influenza virus vaccine, whole virus 1 2001 Unknown, Provider [id number] 16 Sanofi Pasteur ([facility]) complet ed influenza virus vaccine, whole virus DoD tuberculin skin test; purified protein derivative solution, intradermal 1 2001 Unknown, Provider [id number] 96 Sanofi Pasteur ([facility]) complet ed tuberculi n skin test; purified protein derivativ e solution, intraderm al DoD influenza virus vaccine, whole virus 1 2001 Unknown, Provider [id number] 16 Sanofi Pasteur ([facility]) complet ed influenza virus vaccine, whole virus DoD tuberculin skin test; purified protein derivative solution, intradermal 1 2000 Unknown, Provider [id number] 96 [facility] complet ed tuberculi n skin test; purified protein derivativ e solution, intraderm al DoD yellow fever vaccine 1 2000 Unknown, Provider [id number] Unknown (UNK) complet ed yellow fever vaccine DoD influenza virus vaccine, whole virus 3 2000 Unknown, Provider [id number] 16 Alyssiatiffanie (CON) complet ed influenza virus vaccine, whole virus DoD tuberculin skin test; purified protein derivative solution, intradermal 1 1999 Unknown, Provider 96 Loyda (CON) complet ed tuberculi n skin test; purified protein derivativ e solution, intraderm al DoD influenza virus vaccine, whole virus 1 1998 Unknown, Provider [id number] 16 Alexandrea (WAL) complet ed influenza virus vaccine, whole virus DoD typhoid vaccine, live, oral 1 1998 Unknown, Provider [id number]. [id number] 25 Kierra (BP) complet ed typhoid vaccine, live, oral DoD tetanus and diphtheria toxoids, adsorbed, preservative free, for adult use (2 Lf of tetanus toxoid and 2 Lf of diphtheria toxoid) 1 1998 Unknown, Provider [id number] 09 Loyda (CON) complet ed tetanus and diphtheri a toxoids, adsorbed, preservat yair free, for adult use (2 Lf of tetanus toxoid and 2 Lf of diphtheri a toxoid) DoD measles, mumps and rubella virus vaccine 2 1997 Unknown, Provider [id number] Baca (AB) complet ed measles, mumps and rubella virus vaccine DoD influenza virus vaccine, whole virus 1 1997 Unknown, Provider [id number] 16 Loyda (CON) complet ed influenza virus vaccine, whole virus DoD hepatitis A vaccine, adult dosage 2 1997 Unknown, Provider [id number] [place] [address] ([facility]) complet ed hepatitis A vaccine, adult dosage DoD tuberculin skin test; purified protein derivative solution, intradermal 1 1997 Unknown, Provider [id number] 96 Loyda (CON) complet ed tuberculi n skin test; purified protein derivativ e solution, intraderm al DoD influenza virus vaccine, whole virus 2 1996 Unknown, Provider [id number] 16 Loyda (CON) complet ed influenza virus vaccine, whole virus DoD hepatitis A vaccine, adult dosage 1 1996 Unknown, Provider [id number] Merck (MSD) complet ed hepatitis A vaccine, adult dosage DoD tuberculin skin test; purified protein derivative solution, intradermal 1 1996 Unknown, Provider [id number] Loyda (CON) complet ed tuberculi n skin test; purified protein derivativ e solution, intraderm al DoD influenza virus vaccine, whole virus 1 1995 Unknown, Provider 16 () complet ed influenza virus vaccine, whole virus DoD typhoid vaccine, parenteral, acetone-kille d, dried ([place] ) 2 1995 Unknown, Provider [id number] Merck (MSD) complet ed typhoid vaccine, parentera l, acetone-k illed, dried ([place]. ) DoD tetanus and diphtheria toxoids, adsorbed, preservative free, for adult use (2 Lf of tetanus toxoid and 2 Lf of diphtheria toxoid) 1 1988 Unknown, Provider 09 () complet ed tetanus and diphtheri a toxoids, adsorbed, preservat yair free, for adult use (2 Lf of tetanus toxoid and 2 Lf of diphtheri a toxoid) DoD yellow fever vaccine 1 1988 Unknown, Provider [id number] 37 Loyda (CON) complet ed yellow fever vaccine DoD trivalent poliovirus vaccine, live, oral 1 1968 Unknown, Provider 02 () complet ed trivalent polioviru s vaccine, live, oral DoD Encounters Combined list of: 1) Encounters from Department of Veterans Affairs facilities going back up to thelast 18 months. 2) Encounters from the Department of Defense facilities going back up to 280 months. Location Location Details Encounter Type Encounter Number Reason For Visit Attending Provider ADM Date DC Date Status Disposition Source [facility] 39054-8.63 [id number] Diagnos is: ICD-10- CM Z46.1 Encount er for fitting and adjustm ent of hearing aid<br/ > Pily LIN 01/20 [facility] Social History Combined list of available smoking, tobacco, and other social history from Department of Defense and Veterans Affairs facilities. Social History Type Response Date Comment Sourc e This section is an empty social history section. DoD
--- OUTSIDE RECORDS SUMMARY | 2024-04-12 07:56 | XMS_ITS ---
Author Organization [facility] Address [address] [place] [phone] Care Team Providers Care Rig Supervisor Name Role Phone Luis F Flowers MD Primary Care Provider Unavailab Adolfo Quiroz Jr Unavailable Raz Good Unavailable [phone] REASON FOR VISIT Patient presents today for a recall colonoscopy Encounters Encounter Location Date Provider Diagnosis [facility] [address] [place] [phone] 01/22/2023 Raz Good PLAN OF TREATMENT No Information
--- OUTSIDE RECORDS SUMMARY | 2024-04-12 07:56 | XMS_ITS ---
Author Organization [facility] Address [address] [place] [address] Care Team Providers Care Car Supplier Name Role Phone Luis F Flowers MD Primary Care Provider Unavailab Adolfo Quiroz Jr Unavailable REASON FOR VISIT screening Encounters Encounter Location Date Provider Diagnosis [facility] Outpatient [address] [place] [id number] 03/07/2023 Adolfo Oneil Jr Encounter for screening colonoscopy Z12.11 and Colon polyps K63.5 ASSESSMENTS Encounter Date Diagnosis Assessment Notes Treatment Notes Treatment Clinical Notes 03/07/2023 Encounter for screening colonoscopy (ICD-10 - Z12.11) 03/07/2023 Colon polyps (ICD-10 - K63.5) PLAN OF TREATMENT No Information
[2024-04-12 08:15] VITALS: BP 100/62; PULSE 73; BMI 27.5
--- NOTE | 2024-04-12 08:15 | MHC.OFFVIS ---
Vital Signs 04/12/24 08:15 Height 5 ft 9 in Weight 186 lb 1.122 oz BMI 27.5 BP 100/62 Blood Pressure Location Lt brachial Position Sitting Pulse 73 Pulse Source Monitor Intake Visit Reasons: 1 year f/up Music Store Manager Required: No Allergies Sulfa (Sulfonamide Antibiotics) Allergy (Unknown, Verified 04/12/24 08:17) rash Medication List - Last Reconciled 04/12/24 by Alesia Burgos NP-C finasteride 5 mg PO DAILY 90 days HPI HPI 1 year f/up: Details: Fareed is a 73-year-old male with past medical history of prostate CA, right bundle branch block, atypical chest pain who presents for follow-up. Today he reports that he has been doing well over the last year. He has not been getting the mid chest pressure like he had previously reported. He has no shortness of breath, PND, orthopnea or edema. No palpitations, lightheadedness, presyncope, syncope. He is active around his house and does yd work in the summer and shoveling in the winter as needed without concerning symptoms. [facility] Medical History Right bundle branch block (RBBB) Family history of prostate cancer Elevated PSA Prostate cancer Surgical History Hx of prostate biopsy Hx laparoscopic cholecystectomy History of esophagogastroduodenoscopy (EGD) History of colonoscopy History of vasectomy Family History Father Heart attack Mother No problems noted. Paternal Grandfather Prostate cancer Social History Household Members: Spouse Housing: House Are you a primary director career services to a significant other at home: No Do you presently have visiting nurse or other home services: No Alcohol intake: unknown Patient Tobacco Use Status: Former Tobacco user service: Yes Current occupational status: retired Review of Systems Const All systems reviewed & are unremarkable except as noted in HPI and below ENT Denies dizziness Card Denies chest pain, Denies chest pain at rest, Denies chest pain with activity, Denies rapid heart rate, Denies pedal edema, Denies edema, Denies leg edema, Denies lightheadedness, Denies palpitations, Denies dyspnea, Denies dyspnea on exertion and Denies orthopnea Resp Denies cough, Denies dyspnea and Denies dyspnea on exertion GI Denies hematochezia and Denies change in stool character Musc Denies abnormal gait, Denies limited range of motion, Denies muscle cramps, Denies muscle weakness, Denies numbness, Denies radiating pain into limb, Denies stiffness and Denies tingling Neuro Denies abnormal gait, Denies dizziness, Denies numbness and Denies tingling Endo Denies palpitations Physical Exam Vital Signs: Last Vital Signs Pulse 73 04/12/24 08:15 BP 100/62 04/12/24 08:15 BMI result Body Mass Index 27.5 Const General: cooperative, healthy appearing, comfortable and no acute distress Orientation/consciousness: patient oriented x3 Neck Neck: Yes normal visual inspection and Yes no JVD Resp Effort & Inspection: normal respiratory effort Auscultation: clear to auscultation bilaterally, no rales, no rhonchi and no wheezes Cardio Jugular venous distension: no JVD Rate: regular rate Rhythm: regular rhythm Heart sounds: S1 normal heart sound present, S2 normal heart sound present, no murmurs and no rubs Neuro General: patient oriented x3 Extrem General: Yes normal to inspection, No no pedal edema and No calf tenderness Psych Appearance: grossly normal Mental Status: mental status grossly normal Speech and movement: Normal speech and movement present Office Procedures EKG Details: Today read by me, NSR, RBBB, rate 73, QTc 447ms [id number], Complete Assessment & Plan Assessment & Plan (1) Atypical chest pain: Code(s): R07.89 - Other chest pain Category: Medical Plan: Prior Reports of atypical sounding chest discomfort. No chest discomfort brought on by exertional activities. No known history of coronary artery disease. He has no significant cardiac risk factors with the exception of age. EKG done 04/10/2023 shows normal sinus rhythm with right bundle branch block, possible lateral and inferior infarcts, age undetermined, rate 79. Appearance of EKG is unchanged from prior. An echocardiogram was done 04/24/2023 showing EF 64%, no valve abnormalities and no regional wall motion abnormalities. He did have a nuclear stress test on 02/22/2021 showing normal myocardial perfusion imaging. A stress test was not repeated last year due to his symptoms being atypical. At this time he says he is no longer getting any chest discomfort. EKG done today showing normal sinus rhythm with right bundle branch block, rate 73. Heart rate and blood pressure are normal range. All the above reviewed with him. Spent time reviewing signs and symptoms of angina. Emergency care if ever needed for symptoms. He wishes to follow with cardiology in the event that symptoms reoccur. Cardiology office visit in 1 year, sooner if needed. (2) Right bundle branch block: Code(s): I45.10 - Unspecified right bundle-branch block Category: Medical Plan: Present on EKG, not new Plan Time spent on chart review, documentation, interview and assessment Coding Level of Care Code Est Pt Level 3 (32376) Complex EM visit Add On G2211 Diagnoses Atypical chest pain R07.89 Right bundle branch block I45.10 CPT Codes EKG - CPT: 40210-[id number], Complete ([id number]) Time Spent (min) 24
== END 2024-04-12 08:36 | disposition home or self-care (01) ==
PROVIDERS: PCP Internal Medicine; Visit Provider Nurse Practitioner Family
DX: R07.89 Other chest pain (principal); I45.10 Unspecified right bundle-branch block
CPT/HCPCS: 93010; 99213; G2211

== ENCOUNTER → 2024-04-12 07:54 | Outpatient (BNVA) | payer MEDICARE, OTHER, SELFPAY | PROVIDERS: PCP Internal Medicine; Visit Provider Nurse Practitioner Family | DX: I45.10 Unspecified right bundle-branch block (principal); R07.89 Other chest pain | CPT/HCPCS: 93005; 99212 ==

== ENCOUNTER 2024-04-21 07:40 | Outpatient (REF) | payer MEDICARE, OTHER, SELFPAY ==
--- NOTE | ~2024-04-21 | MR_ITS ---
EXAMINATION: MR PELVIS WITHOUT THEN WITH IV CONTRAST HISTORY: C61 - Malignant neoplasm of prostate TECHNIQUE: 1.5T body coil survey of the pelvis was performed. Phase array coil imaging of the prostate was performed in multiplanar high resolution axial, coronal, sagittal fast spin echo T2 and axial T1 weighted imaging sequences. Axial diffusion imaging at intermediate and high field performed with ADC mapping. Next, mL Gadavist was given by intravenous infusion, and dynamic axial imaging performed. COMPARISON: There are no prior studies for comparison. CLINICAL HISTORY: Most recent PSA: 3.25 PSA Density: 0.05 ng/mL squared Prostate Biopsy: Positive biopsy on 05/20/2022 with a Deb score of 3+3 = 6. FINDINGS: Prostate size: 6.0 x 5.3 x 3.9 cm. Calculated prostate volume is 64.5 mL. Hemorrhage: None. Transitional Zone: There is marked heterogeneous nodular hypertrophy of the transitional zone. Peripheral Zone: There is diffuse thinning of the peripheral zone. No discrete foci of abnormal signal intensity are identified. There are no foci of restricted diffusion. Seminal Vesicles/Ejaculatory Ducts: Symmetric and normal in signal and caliber. Pelvic Lymph Nodes: No obturator or internal iliac lymph nodes meeting size criteria for adenopathy. Marrow Signal: Normal marrow signal and enhancement without focal lesion identified. MR/MR pelvis wo/w con IMPRESSION: No discrete focus of abnormal signal intensity is identified to suggest clinically significant prostate carcinoma. PI-RADS 2: Low (clinically significant cancer is unlikely to be present) [employer]. MR Prostate Imaging Reporting and Data System version 2.1. [email or web address] Electronically signed by: Raz Smiley MD 04/21/2024 01:44 PM [facility]
[2024-04-21 08:59] LABS: PSA,Total (Free>4and<10) 3.25 ng/mL (0.00-4.00)
[2024-04-21] MEDS: gadobutroL 10 ML VIAL 8 ML IVPUSH (09:34)
== END 2024-04-21 07:41 | disposition home or self-care (01) ==
LOC: HO.MRI 07:40
PROVIDERS: PCP Internal Medicine; Visit Provider Urology
DX: Z12.5 Encounter for screening for malignant neoplasm of prostate (principal); C61 Malignant neoplasm of prostate
CPT/HCPCS: 36415; 72197; 84153; A9585

== ENCOUNTER → 2024-04-21 08:33 | Outpatient (BNV) | payer MEDICARE, OTHER, SELFPAY | PROVIDERS: PCP Internal Medicine; Visit Provider Radiology Diagnostic Radiology | DX: Z85.46 Personal history of malignant neoplasm of prostate (principal) | CPT/HCPCS: 72197 ==

== ENCOUNTER → 2024-04-30 08:54 | Outpatient (BNVA) | payer MEDICARE, OTHER, SELFPAY | PROVIDERS: PCP Internal Medicine; Visit Provider Urology | DX: C61 Malignant neoplasm of prostate (principal) | CPT/HCPCS: 99212 ==

== ENCOUNTER 2024-10-05 11:20 | Outpatient (AMB) | payer MEDICARE, OTHER, SELFPAY ==
--- OUTSIDE RECORDS SUMMARY | 2024-06-23 06:00 | XMS_ITS | Encounter Summary ---
Author Name [facility] ([place] Organization [facility] [place] Address [address] [place] [id number] Support Name Relationship Address Phone DARELL DIXON Next of Kin [address] [place] [address] DARELL DIXON Emergency Contact [address] [place] [address] Insurance Providers: All historical and current Section Date Range: From patient's date of to the date document was created. This section includes the names of all active insurance providers for the patient. Insurance Provider Type of Coverage Plan Name Start of Policy Coverage End of Policy Coverage Group Number Member ID Insurance Provider's Telephone Number Policy Shepherd's Name Patient's Relationship to Policy Shepherd MEDICARE (WNR) MEDICARE () PART A Jul 06, 2014 PART A [id number] ATMEKA DIXON PATIENT MEDICARE (WNR) MEDICARE () PART B Jul 06, 2014 PART B [id number] [phone] TAMEKA DIXON PATIENT MEDICARE (WNR) MEDICARE () PART B Jul 06, 2014 PART B [id number] TAMEKA DIXON PATIENT MEDICARE (WNR) MEDICARE () PART A Jul 06, 2014 PART A [id number] TAMEKA DIXON PATIENT FOR LIFE TFL* Jul 06, 2014 [id number] TAMEKA DIXON PATIENT -FO R-LIFE TRICA RE FOR LIFE Jul 06, 2014 [id number] TAMEKA DIXON PATIENT Selected Encounter This section includes the information on record at [place] for the Encounter. Date/Time Encounter Type Encounter Description Reason Provider Source Jun 23, 2024 10:00 AM HEARING AID XM&SLCTN [facility] ICD-10-CM H90.3 Sensorineural hearing loss, bilateral TRAVIS LIN IHE Encounter Template Text not used by DC Assessments - Encounter Diagnoses This section includes the primary and secondary diagnoses documented for the Encounter. Date/Time Primary/Secondary Diagnosis Diagnosis Name Provider Source Jun 23, 2024 10:32 AM PRIMARY Sensorineural hearing loss, bilateral [facility] [place] [facility] Jun 23, 2024 10:32 AM SECONDARY Tinnitus, bilateral [facility] Plan of Treatment: Future Appointments (+ 6 months) and Future Tests (+/- 45 days) The Plan of Treatment section includes future care activities for the patient from all [place] treatmentfacilities. This section includes future appointments and future orders which are active, pending or scheduled. Future Appointments This section includes appointments that were scheduled to occur 6 months from the date of the Encounter, up to a maximum of 20 appointments. The data comes from all [place] treatment facilities. Appointment Date/Time Appointment Type Appointme nt Facility Name Jul 22, 2024 09:00 AM [facility] [place] [facility] September 02, 2024 01:00 PM AMBULATORY - MEDICINE DC [facility] Encounter Notes: All associated encounter notes This section contains the clinical notes associated to the Encounter. Date/Time Encounter Note(s) Provider Source Jun 23, 2024 07:52 AM AUDIOLOGY E & M NO TE: LOCAL TITLE: AUDIOLOGY CLINIC STANDARD TITLE: AUDIOLOGY E & M NOTE DATE OF NOTE: JUN 23, 2024@07:52 ENTRY DATE: JUN 23, 2024@07:52:59 AUTHOR: TRAVIS LIN COSIGNER: URGENCY: STATUS: COMPLETED AUDIOLOGY CLINIC Has ADDENDA was seen 06-23-24 for a hearing re-evaluation. Hearing was last evaluated in 2021. He has a longstanding history of asymmetrical sensorineural hearing loss, worse left ear. Based on report from and a brief record review it does not appear that he has seen an ENT in over ten years. He currently uses binaural Oticon RICs, issued in 2021. He reports no otologic changes, noting longstanding tinnitus and denying vertigo. He states that hearing may have declined. He states he does not have a pacemaker. Results are as follow: Otoscopy is WNL for both ears. Pure tone audiometric testing with headphones revealed normal hearing, sloping to profound sensorineural hearing loss bilaterally. Asymmetry, worse left ear, was noted at many frequencies. Word recognition scores were good right ear with 84% correct and poor left ear with 40% correct for recorded speech presented at 85 dB HL (masked). Normal tympanograms were obtained bilaterally. Results obtained today reflect decline in select thresholds for both ears and in word recognition for the left ear in comparison to those from 2021. Updated firmware on both hearing aids and reprogrammed with 2 steps more overall gain. was counseled on today's test results. ENT evaluation is recommended based on change in hearing, left ear. Consult submitted. Given the age and technology of 's current amplification, he is considered eligible for new hearing aids. Binaural rechargeable RICs with domes are recommended and agrees. RTC placed for the fitting. Suicide Screen: C-SSRS Screening [place]-Suicide Severity Rating Scale (C-SSRS Screener) 1. Over the past month, have you wished you were or wished you could go to sleep and not wake up? No 2. Over the past month, have you had any actual thoughts of killing yourself? No 3. Over the past month, have you been thinking about how you might do this? Response not required due to responses to other questions. 4. Over the past month, have you had these thoughts and had some intention of acting on them? Response not required due to responses to other questions. 5.Over the past month, have you started to work out or worked out the details of how to kill yourself? Response not required due to responses to other questions. 6. If yes, at any time in the past month did you intend to carry out this plan? Response not required due to responses to other questions. 7.In your lifetime, have you ever done anything, started to do anything, or prepared to do anything to end your life (for example, collected pills, obtained a gun, gave away valuables,went to the roof but didn't jump)? No 8. If YES, was this within the past 3 months? Response not required due to responses to other questions. /shayy/ Darin COOK, [facility]-A STAFF COURSE DEVELOPER Signed: 06/23/2024 11:51 06/29/2024 ADDENDUM STATUS: COMPLETED Hearing aids received and certified, upcoming appointment scheduled on 07/22/2024. /shayy/ VLADIMIR CONTRERAS Audiology [facility] Raw Scales Operator Signed: 06/29/2024 08:01 TRAVIS LIN [facility]
--- NOTE | 2024-10-05 11:43 | MHC.PC.OV ---
Vital Signs 10/05/24 11:49 Height 5 ft 8.9 in Weight 187 lb BMI 27.7 BP 127/59 L Respiration 14 Pulse 68 Pulse Source Pulse Oximeter Temp 97.8 F Temp Source Temporal Artery Scan Pulse Oximetry (%) 96 Oxygen Delivery Method Room Air Intake Visit Reasons: establish care Pushcart Peddler Required: No Accompanied by: Self / Same As Patient Allergies Sulfa (Sulfonamide Antibiotics) Allergy (Unknown, Verified 10/12/24 07:00) rash Medication List - Last Reconciled 10/12/24 by Pola Cornejo MD finasteride 5 mg PO DAILY 90 days Tobacco use date assessed: 10/05/24 Fall risk assessment: No Falls in past year Last assessed Fall Risk: 10/05/24 Dental Screening Dental Screen Date: 10/05/24 Did you have a dental visit in the last 12 months?: No Did you have a dental problem in the last 6 months where you did not have access to dental care?: No Was dental information given to patient?: Patient has dentist (patient has dentures) [facility] Medical History Right bundle branch block (RBBB) Family history of prostate cancer Elevated PSA Prostate cancer Surgical History Hx of prostate biopsy Hx laparoscopic cholecystectomy History of esophagogastroduodenoscopy (EGD) History of colonoscopy (~03/07/23) History of vasectomy Family History Father Heart attack Mother No problems noted. Paternal Grandfather Prostate cancer Social History Household Members: Spouse Housing: House Are you a primary resident care supervisor to a significant other at home: No Do you presently have visiting nurse or other home services: No Alcohol intake: current Alcohol intake frequency: a few times a week Alcohol type: beer Patient Tobacco Use Status: Former Tobacco user service: Yes Current occupational status: retired Cognitive needs: No Hearing needs: Yes (b/l hearing aids) Vision needs: Yes (rx glasses) Questionnaire PHQ-9 Over the last 2 weeks, how often have you been bothered by any of the following problems? 1. Little interest or pleasure in doing things: not at all 2. Feeling down, depressed, or hopeless: not at all 3. Trouble falling or staying asleep, or sleeping too much: not at all 4. Feeling tired or having little energy: not at all 5. Poor appetite or overeating: not at all 6. Feeling bad about yourself - or that you are a failure or have let yourself or your family down: not at all 7. Trouble concentrating on things, such as reading the newspaper or watching television: not at all 8. Moving or speaking so slowly that other people could have noticed. Or the opposite - being so fidgety or restless that you have been moving around a lot more than usual: not at all 9. Thoughts that you would be better off or of hurting yourself in some way: not at all Total score: 0 Depression Screening Interpretation: Negative Depression Screening Done: Yes Source: Developed by Drs. Raz Leary, Christi Finch, Woody Elizabeth and colleagues, with an educational lisa from [employer]. Thrive Questionnaire Date Thrive assessed: 10/05/24 I am a: Patient What is your living situation today?: I have a steady place to live Within the past 12 months, did the food you bought not last and you didn't have the money to get more?: Never true Within the past 12 months, did you worry whether your food would run out before you got money to buy more?: Never true Do you have trouble paying for medicines?: No Do you have trouble getting transportation to medical appointments?: No Do you have trouble paying your heating and electricity bill?: No Do you have trouble taking care of your child, family member or friend?: No Do you have trouble with day-to-day activities such as bathing, preparing meals, shopping, managing finances, etc.?: No Are you currently unemployed and looking for a job?: No Are you interested in more education?: No Please select the resources that you would like help with: None THRIVE Score: 0 AUDIT C Alcohol Use Questionnaire (AUDIT-C) 1. How often do you have a drink containing alcohol?: 2-3 times a week 2. How many drinks containing alcohol do you have on a typical day when you are drinking?: 1 or 2 3. How often do you have six or more drinks on one occasion?: Never Total Score: 3 MORE-7 AMB Questionnaire MORE-7 Date MORE - 7 assessed: 10/05/24 Feeling nervous, anxious, or on edge: 0 = Not at all Not being able to stop or control worryin = Not at all Worrying too much about different things: 0 = Not at all Trouble relaxin = Not at all Being so restless that it is hard to sit still: 0 = Not at all Becoming easily annoyed or irritable: 0 = Not at all Feeling afraid as if something awful might happen: 0 = Not at all Total MORE-7 score (0-4 normal; 5-9 mild; 10-14 moderate; 15-21 severe): 0 Source: Developed by Drs. Raz Leary, Christi Finch, Woody Elizabeth and colleagues, with an educational lisa from [employer]. Physical exam (Primary Care) Vital Signs: Last Vital Signs Temp 97.8 F 10/05/24 11:49 Pulse 68 10/05/24 11:49 Resp 14 10/05/24 11:49 BP 127/59 L 10/05/24 11:49 Pulse Ox 96 10/05/24 11:49 Oxygen Delivery Method Room Air 10/05/24 11:49 Care Plan Goal for BP management: BP is in range BMI result Body Mass Index 27.7 Tobacco/Smoking Status: Tobacco use Status Tobacco use date assessed 10/05/24 10/05/24 11:46 Patient Tobacco Use Status Former Tobacco user 10/05/24 11:53 PHQ-9: PHQ-9 Score PHQ-9: Total score 0 10/05/24 11:54 Depression Screening Interpretation: Negative Thrive Assessment: Date of Thrive Assessment Date Thrive assessed 10/05/24 10/05/24 11:54 Coding Level of Care Code New Pt Level 4 (02959) Complex EM visit Add On G2211 Diagnoses Prostate cancer C61 Assessment & Plan Assessment & Plan (1) Prostate cancer: Comment: 2019 Grade group 1 PSA stable 2022 repeat biopsy grade group 1 Code(s): C61 - Malignant neoplasm of prostate Category: Medical Plan: As above Plan History of Present Illness - The patient is a 74-year-old male presenting with ongoing management of chronic conditions. - Prostate cancer: The patient has a history of prostate cancer, which was previously treated. - Glaucoma: The patient has glaucoma and has undergone surgery for this condition. - Cataract: The patient has had cataract surgery and stents placed. - Heart block: The patient is under the care of Dr. Contreras for a heart block, which is considered minor, and he sees the teacher counselor annually. - Status post cholecystectomy: The patient recently had his gallbladder removed. - Preventative care: The patient has undergone a colonoscopy and plans to continue with regular screenings despite not being due for another. - Social history: The patient served in the [employer] for 20 years and worked in [employer] post-service. He quit smoking 40 years ago. Social History - service: The patient served in the [employer] for 20 years, participating in various operations including [employer] and [employer]. - Employment: Post-, the patient worked in [employer]. - Smoking history: The patient quit smoking 40 years ago. Review of Systems - Ophthalmologic: Reports good vision post-glaucoma and cataract surgeries. - Cardiovascular: Denies current symptoms related to heart block. Physical Exam General: Cooperative and healthy appearing Nutritional Appearance: Well nourished Orientation/consciousness: Patient oriented x3 Limitations: No limitations Head: Normal to inspection General: Appearance normal, both eyes and all related structures Neck: Normal visual inspection Chest: Normal palpation of entire chest wall Respiratory: N ormal respiratory effort Neurology: Patient oriented x3, vision is good Results Plan 1. Prostate Cancer - Continue monitoring as per oncology recommendations. 2. Glaucoma - Follow up with liquor bridge operator helper as scheduled. 3. Cataract - Post-surgical follow-up as needed. 4. Heart Block - Annual cardiology follow-up with Dr. Contreras. 5. Status Post Cholecystectomy - No specific follow-up required unless symptoms arise. 6. Preventative Care: Colonoscopy - Continue regular screenings as per batch freezer's advice. Discussion Notes I discussed with the patient the importance of continuing regular follow-ups with his specialists for prostate cancer, glaucoma, and heart block. We also talked about the need for regular blood work and the benefits of ongoing preventative screenings such as colonoscopy. The patient was advised to complete the blood work at his convenience within the next week and to coordinate with his primary care and specialists to streamline his care. Patient Instructions - Complete fasting blood work at the hospital or designated lab within the next week. - Continue regular follow-ups with your liquor bridge operator helper, teacher counselor, and oncologist. - Maintain regular colonoscopy screenings as advised by your batch freezer. Orders: Orders Basic Metabolic Panel 10/07/24 C6 - Malignant neoplasm of prostate Thyroid Stimulating Hormone 10/07/24 C61 - Malignant neoplasm of prostate UA and rflx microscopic 10/07/24 C6 - Malignant neoplasm of prostate Complete Blood Count no Diff 10/07/24 C61 - Malignant neoplasm of prostate Liver Panel 10/07/24 C61 - Malignant neoplasm of prostate Lipid Panel 10/07/24 C61 - Malignant neoplasm of prostate
[2024-10-05 11:49] VITALS: BP 127/59; PULSE 68; RESP 14; TEMP 36.6; O2SAT 96; BMI 27.7
--- OUTSIDE RECORDS SUMMARY | 2024-10-05 12:35 | XMS_ITS | Patient Health Record ---
Author Organization [facility] Address [address] [place] [id number] Care Team Providers Care Dental Amalgam Processor Name Role Phone Luis F Flowers MD Primary Care Provider Adolfo Gonzalez Jr Unavailable Allergies Allergen (clinical drug ingredient) Drug/Non Drug Allergy documented on EMR Reaction Allergy Type Onset Date Status Sulfa Unknown Drug Allergy Active Reason For Referral No Information Medications Medication SIG (Take, Route, Frequency, Duration) Notes Start Date End Date Status Latanoprost 0.005 % Ophthalmic for 90 Active Finasteride 5 MG Oral for 90 A ctive MiraLax (colon prep) 17 GM/SCOOP mixed with Gatorade or Crystal Light Orally begin at 5:00 p.m. the day before the procedure for 1 day 01/08/2023 Active Immunizations Vaccine Route Administration Date Status Comme nts Influenza Unknown 12/06/2016 Administered Influenza Unknown 01/06/2023 Administered Social History Tobacco Use: Social History Observation Description Date Details (start date - stop date) Former Smoker NA - NA Tobacco Use/Smoking Question Answer Notes Patient is [...] Never (0 point) Points 2 Interpretation Negative Section Notes: 1 beer per week 1 beer per week Problems Problem Type SNOMED Code ICD Code Onset Dates Problem Status W/U Status Risk Notes Problem 591960820 Colon cancer screening (Z12.11) Active confirmed Problem [id number] nursing home (current) use of aspirin (Z79.82) Active confirmed Plan Of Treatment Future Test Test Name Order Date COLONOSCOPY 12/12/2011 COLONOSCOPY 07/31/2017 COLONOSCOPY 01/08/2023 Insurance Providers Payer Name Payer Address Payer Phone Subscriber Number Group Number Insured Name Patient Relationship to Insured Coverage Start Date Coverage End Date MEDICARE OF [place] [address] [place] [address] [id number] TAMEKA CAN Self - patient is the insured FOR LIFE [address] [place] [address] [id number] TAMEKA CAN Self - patient is the insured Medical (General) History Medical History History ICD Code Colon polyps, colonoscopy 09/24/17, tubul ar adenoma, five-year followup Elevated intraocular pressure Right bundle branch block prostate cancer Surgical History Surgery Date(Month/Year) vasectomy cystoscopy Prostate biopsy Cholecystectomy
== END 2024-10-05 12:06 | disposition home or self-care (01) ==
LOC: HO.HMCSH 11:20
PROVIDERS: PCP Internal Medicine; Visit Provider Internal Medicine
DX: C61 Malignant neoplasm of prostate (principal)

== ENCOUNTER → 2024-10-05 11:20 | Outpatient (BNVA) | payer MEDICARE, OTHER, SELFPAY | PROVIDERS: PCP Internal Medicine; Visit Provider Internal Medicine | DX: C61 Malignant neoplasm of prostate (principal) | CPT/HCPCS: 99202 ==

== ENCOUNTER 2024-10-07 05:57 | Outpatient (REF) | payer MEDICARE, OTHER, SELFPAY ==
--- OUTSIDE RECORDS SUMMARY | 2024-10-07 06:00 | XMS_ITS | Patient Health Record ---
Author Organization [facility] Address [address] [place] [id number] Care Team Providers Care Senior Service Aide Name Role Phone Luis F Flowers MD [...] Problem Status W/U Status Risk Notes Problem [id number] Colon cancer screening (Z12.11) Active confirmed Problem 342941351 [facility] (current) use of aspirin (Z79.82) Active confirmed Plan Of Treatment Future Test Test Name Order Date COLONOSCOPY 12/12/2011 COLONOSCOPY 07/31/2017 COLONOSCOPY 01/08/2023 Insurance Providers Payer Name Payer Address Payer Phone Subscriber Number Group Number Insured Name Patient Relationship to Insured Coverage Start Date Coverage End Date [place]ARE OF [place] [address] [place] [address] [id number] TAMEKA CAN Self - patient is the insured FOR LIFE [address] [place] [id number] TAMEKA CAN Self - patient is the insured Medical (General) History Medical History History ICD Code Colon polyps, colonoscopy 09/24/17, tubul ar adenoma, five-year followup Elevated intraocular pressure Right bundle branch block prostate cancer Surgical History Surgery Date(Month/Year) vasectomy cystoscopy Prostate biopsy Cholecystectomy
[2024-10-07 07:38] LABS: Appearance Urine Clear; Glucose Urine UA Negative (Negative); PH 5.5 (5.0-9.0); Specific Gravity - Urine 1.025 (1.005-1.025)
[2024-10-07 07:44] LABS: Hematocrit 48.0 % (42.0-52.0); Hemoglobin 16.6 g/dl (14.0-18.0); Mean Corpuscular HGB Conc 34.6 g/dl (31.0-36.0); Mean Corpuscular Hemoglobin 32.4 pg (27.0-33.0); Mean Corpuscular Volume 93.8 fL (80.0-98.0); NRBC Abs Auto 0.000 X10*3/uL (0.0-0.012); NRBC Pct Auto 0.0 /100WBC (0.0-0.2); Platelet Count 288 X10*3/uL (160-400); Red Blood Count 5.12 X10*6/uL (4.60-5.80); White Blood Count 11.4 X10*3/uL (4.8-10.8)
[2024-10-07 08:34] LABS: Alanine Aminotransferase 24 U/L (0-40); Albumin Level 4.5 g/dL (3.5-5.0); Alkaline Phosphatase 96 U/L (39-117); Anion Gap 12 (12-20); Aspartate Amino Transferase 30 U/L (5-37); Blood Urea Nitrogen 19 mg/dL (9-16); Calcium 9.3 mg/dL (8.4-10.2); Carbon Dioxide 27 mmol/L (22-29); Chloride 103 mmol/L (96-108); Cholesterol 145 mg/dL (<200); Estimated Glomerular Filt Rate > 60; HDL Cholesterol 34 mg/dL (>40); Potassium 3.9 mmol/L (3.3-5.1); Sodium 138 mmol/L (135-145); Total Protein 6.7 g/dL (6.5-8.0); Triglycerides 87 mg/dL (<150)
[2024-10-07 08:37] LABS: Thyroid Stimulating Hormone 3.16 uIU/mL (0.32-4.0)
[2024-10-07 09:06] LABS: Prostate Specific Antigen 6.57 ng/mL (<0.05-4.0)
== END 2024-10-07 05:58 | disposition home or self-care (01) ==
LOC: HO.LAB 05:57
PROVIDERS: Absent Provider Urology; PCP Internal Medicine; Visit Provider Internal Medicine
DX: Z12.5 Encounter for screening for malignant neoplasm of prostate (principal); C61 Malignant neoplasm of prostate; Z13.6 Encounter for screening for cardiovascular disorders
CPT/HCPCS: 36415; 80048; 80061; 80076; 81003; 84153; 84443; 85027

== ENCOUNTER 2024-10-22 09:49 | Outpatient (AMB) | payer MEDICARE, OTHER, SELFPAY ==
--- OUTSIDE RECORDS SUMMARY | 2024-10-22 10:00 | XMS_ITS | Patient Health Record ---
Author Organization [facility] Address [address] [place] [address] Care Team Providers Care Community Health Planning Director Name Role Phone Lionel (RETIRED) Luis F DIOR Primary Care Provider Unavailable Adolfo Oneil Jr Unavailable [phone] Allergies Allergen (clinical drug ingredient) Drug/Non Drug [...] Problem Status W/U Status Risk Notes Problem [id number] Colon cancer screening (Z12.11) Active confirmed Problem 783613630 ad terminal makeup operator (current) use of aspirin (Z79.82) Active confirmed Plan Of Treatment Future Test Test Name Order Date COLONOSCOPY 12/12/2011 COLONOSCOPY 07/31/2017 COLONOSCOPY 01/08/2023 Insurance Providers Payer Name Payer Address Payer Phone Subscriber Number Group Number Insured Name Patient Relationship to Insured Coverage Start Date Coverage End Date MED[place]ARE OF [place] [address] [place] [address] [id number] TAMEKA CAN Self - patient is the insured FOR LIFE [address] [place] [id number] TAMEKA CAN Self - patient is the insured Medical (General) History Medical History History ICD Code Colon polyps, colonoscopy 09/24/17, tubul ar adenoma, five-year followup Elevated intraocular pressure Right bundle branch block prostate cancer Surgical History Surgery Date(Month/Year) vasectomy cystoscopy Prostate biopsy Cholecystectomy
--- NOTE | 2024-10-22 10:16 | A.OFFVIS_ITS ---
Intake Visit Reasons: 6m/PSA Intake Note: Patient is present for 6Mo follow up for Cleaning Specialist Urology Medication:FINASTERIDE Antibiotic Allergy:SULFA Blood Thinner:NONE Labs 10/07/24 : PSA 6.57 Casting Tester Required: No Accompanied by: Self / Same As Patient Allergies Sulfa (Sulfonamide Antibiotics) Allergy (Unknown, Verified 10/22/24 10:20) rash HPI Comments Details: Anthony is a pleasant male. He is a patient of Dr. Flowers. He is seen for the following urologic issue - prostate cancer PSA does decrease during month on medication Continues finasteride - 1 month on, 1 month off Six-month follow-up Jump in PSA Likely due to being off finasteride Would restart daily finasteride Repeat lab work 4 months Dairy normal 05/01 Prostate MRI 65 gm prostate No discrete focus of abnormal signal intensity is identified to suggest clinically significant prostate carcinoma Prostate cancer group 1 - 02/23, 05/3023 Grade Group1 - active surveillance PSA 02/24 4.5, 07/26 6.0, 10/25 3.4, 03/27 2.75, 07/27 2.3, 01/26 2.7, 09/27 3.1, 01/27 3.5, 04/30 3.3, 07/29 3.5, 10/28 3.6, 01/28 4.1, 05/01 3.2, 10/29 6.6 Has undergone single biopsy with MRI follow-up in November 2020 Prostate cancer diagnosed by Dr. Hoang February 2019, PSA at diagnosis 6.2 Initial pathology - Deb 3 + 3, 3/12 cores, maximum core 40% Imaging MRI 11/25 55 g prostate, apical right lesion, no evidence of extracapsular extension. PI-RADS 3 HAN 2+ no nodules Repeat Biopsy 05/30 Deb score:?6 (3+3) (e 2.5 and? c3 3.5) Number cores positive: 2 Total number of cores: 13 with prostatic tissue % of tissue involved: 1.77% of all prostatic tissue examined Periprostatic fat inv.: Not identified Seminal vesicle inv.: Not identified Perineural inv.: Not identified Lymphovascular invasion: Not identified Family history positive - grandfather Initial therapy - active surveillance with finasteride [facility] Medical History Right bundle branch block (RBBB) Family history of prostate cancer Elevated PSA Prostate cancer Surgical History Hx of prostate biopsy Hx laparoscopic cholecystectomy History of esophagogastroduodenoscopy (EGD) History of colonoscopy (~03/07/23) History of vasectomy Family History Father Heart attack Mother No problems noted. Paternal Grandfather Prostate cancer Social History Household Members: Spouse Housing: House Are you a primary care center manager to a significant other at home: No Do you presently have visiting nurse or other home services: No Alcohol intake: current Alcohol intake frequency: a few times a week Alcohol type: beer Patient Tobacco Use Status: Former Tobacco user service: Yes Current occupational status: retired Cognitive needs: No Hearing needs: Yes (b/l hearing aids) Vision needs: Yes (rx glasses) Review of Systems Const Denies chills and Denies fever(s) Card Reports no additional complaints and Denies syncope Resp Denies cough GI Denies abdominal pain and Denies heartburn Reports as per HPI and Denies change in libido Neuro Denies syncope Psych Denies change in libido Endo Denies change in libido Physical Exam Const General: cooperative, healthy appearing, comfortable and no acute distress Orientation/consciousness: patient oriented x3 HEENT Face and sinus: Yes normal facial exam Mouth: moist mucous membranes Neck Neck: Yes normal visual inspection, Yes full ROM and Yes trachea midline Chest Chest palpation & inspection: normal inspection of the chest Resp Effort & Inspection: normal respiratory effort, able to speak in complete sentences and no respiratory distress GI Inspection: Yes normal to inspection Rectal Exam - Male: Yes normal sphincter tone and Yes prostate normal Male General Exam: Yes normal external exam Penis: normal penis and circumcised Meatus: meatus normal Scrotum: scrotum normal Testes: Testes normal Back/Spine/Pelvis Cervical Spine: normal cervical lordosis Thoracic/Lumbar Spine: thoracic and lumbar spine normal to inspection Skin General skin exam: no rashes or lesions noted Neuro General: patient oriented x3, gait normal, tone normal and moves all extremities Extrem General: Yes normal to inspection and Yes capillary refill normal Assessment & Plan Assessment & Plan (1) Prostate cancer: Comment: 2019 Grade group 1 PSA stable 2022 repeat biopsy grade group 1 Code(s): C61 - Malignant neoplasm of prostate Category: Medical Plan Four month follow-up PSA Orders: Orders PSA,Total (Free>4and<10) 4 Months C61 - Malignant neoplasm of prostate Medications: Refilled finasteride 5 mg PO DAILY 90 tabs 3RF 90 days C61 - Malignant neoplasm of prostate Patient Instructions: This note is constructed using voice recognition software. While every effort has been made to ensure accuracy patient scheduling coordinator errors may have been included. Imaging studies, laboratory and physical exam results were discussed and reviewed in detail. No major barriers to patient understanding were identified. An opportunity to ask questions regarding the treatment plan was provided. All questions were answered. The patient expressed understanding and agreement with the above treatment plan. The patient is aware they should contact our office by phone for worsening of their current condition or the appearance of new urologic symptoms. Compliance is encouraged with any medications and followup testing that is ordered. It is a privilege to participate in the urologic care of your patient. If you have any questions or concerns regarding treatment for the above conditions, or other urologic issues, please do not hesitate to contact me. The office te gwendolyn contact is [phone]. Sincerely, Dr Gonzalez Cartagena MD, [facility] - Urology Compassionate Specialist Care for the Genitourinary System Coding Level of Care Code Est Pt Level 3 (86000) Complex EM visit Add On G2211 Diagnoses Prostate cancer C61
== END 2024-10-22 10:55 | disposition home or self-care (01) ==
LOC: HO.HUSH 09:50
PROVIDERS: PCP Internal Medicine; Visit Provider Urology
DX: C61 Malignant neoplasm of prostate (principal)
CPT/HCPCS: 99213; G2211

== ENCOUNTER → 2024-10-22 09:49 | Outpatient (BNVA) | payer MEDICARE, OTHER, SELFPAY | PROVIDERS: PCP Internal Medicine; Visit Provider Urology | DX: C61 Malignant neoplasm of prostate (principal); Z80.42 Family history of malignant neoplasm of prostate | CPT/HCPCS: 99212 ==

== ENCOUNTER 2025-01-13 15:16 | Emergency (ER) | payer OTHER, MEDICARE, SELFPAY ==
[2025-01-13 15:19] VITALS: BP 152/82; PULSE 82; RESP 18; TEMP 36.4; O2SAT 97; BMI 26.3
--- NOTE | 2025-01-13 15:24 | ED.GENADULT ---
HPI - General Adult General Chief complaint: Wound/Laceration Stated complaint: left hand laceration Time Seen by Provider: 01/13/25 18:34 Source: patient, RN notes reviewed and old records reviewed Mode of arrival: ambulatory Limitations: no limitations History of Present Illness ED Provider: Idalia HPI narrative: 74-year-old male presents for evaluation of a dog bite to his left hand. The patient reports that his dog was scared by a loud noise outside pain It was climbing at the curtains pain The patient reports that he tried to open the current slightly dog would not damage the current. When he did this the dog bit his left hand. The patient pulled away in the dog class onto his left hand. He suffered some wounds to the back of the left hand only. Bleeding is controlled pain The dog is up-to-date on his rabies vaccine The patient does not know in his last tetanus shot was pain He only has 1/10 pain. No other complaints or concerns at this time The dog is a 15 lb terrier Related Data Previous Rx's ?Medication ?Instructions ?Recorded finasteride 5 mg tablet 5 mg PO DAILY 90 days #90 tabs 10/22/24 amoxicillin 875 mg-potassium 1 tab PO Q12H #10 tabs 01/13/25 clavulanate 125 mg tablet Allergies Allergy/AdvReac Type Severity Reaction Status Date / Time Sulfa (Sulfonamide Allergy Unknown rash Verified 01/13/25 15:23 Antibiotics) Review of Systems Constitutional: Constitutional: Denies body ache(s), Denies chills and Denies fever(s) Musculoskeletal: Musculoskeletal: Denies arthralgias, Denies joint swelling and Denies limited range of motion Integumentary/Breasts: Skin/Breast: Denies erythema and Reports wounds PMFSH Past Medical History Medical History Right bundle branch block (RBBB) Family history of prostate cancer Elevated PSA Prostate cancer Surgical History Hx of prostate biopsy Hx laparoscopic cholecystectomy History of esophagogastroduodenoscopy (EGD) History of colonoscopy (~03/07/23) History of vasectomy Family History Family History Father Heart attack Mother No problems noted. Paternal Grandfather Prostate cancer Social History Social History Household Members: Spouse Housing: House Are you a primary md do resident urgent care to a significant other at home: No Do you presently have visiting nurse or other home services: No Alcohol intake: current Alcohol intake frequency: a few times a week Alcohol type: beer Patient Tobacco Use Status: Former Tobacco user Advance Directives: No Advance Directives Information Provided: Yes service: Yes Current occupational status: retired Cognitive needs: No Hearing needs: Yes (b/l hearing aids) Vision needs: Yes (rx glasses) Physical Exam ED Vital Signs: Vital Signs - 24 hr 01/13/25 15:19 01/13/25 16:00 01/13/25 18:00 Temperature 97.5 F 98 F Pulse Rate 82 69 69 Respiratory Rate 18 18 18 Blood Pressure 152/82 H 135/79 135/79 Pulse Oximetry 97 96 96 Oxygen Delivery Method Room Air Room Air Room Air 01/13/25 20:04 Temperature 0 F L Pulse Rate 69 Respiratory Rate 18 Blood Pressure 135/79 Pulse Oximetry 96 Oxygen Delivery Method Room Air BMI result Body Mass Index 26.3 Const General: healthy appearing, comfortable, no acute distress, alert and awake Nutritional Appearance: well nourished Orientation/consciousness: patient oriented x3 HENMT Head: Yes normocephalic and Yes atraumatic Eyes Eyelids: Yes eyelids normal Conjunctivae: conjunctivae normal Sclerae: sclerae normal Corneas: corneas normal Pupils: Equal, round and reactive pupils present EOM: EOMs intact bilaterally Neck Neck: Yes full ROM Resp Effort & Inspection: normal respiratory effort, able to speak in complete sentences and not labored Cardio Rate: regular rate Rhythm: regular rhythm GI Inspection: No distended Palpation (GI): Soft to palpation, not firm, nontender, no guarding and not rigid Skin Other: There is a skin tear to the left 3rd finger. There is a slightly deeper avulsion, 2 cm, v-shaped laceration to the dorsal surface of the left hand. There is a smaller, 0.5 cm linear laceration distal to this. General skin exam: elasticity normal Neuro General: patient oriented x3 Cranial nerves: Yes Equal, round and reactive pupils present and Yes Bilaterally intact EOM present Cognition (Neuro): normal cognition Extrem Other: No significant deformity. The patient has full range of motion with flexion-extension of all digits of the left hand. No scaphoid tenderness. Course Course Course Narrative: This is a rapid medical exam performed by Ney Jacome NP: Additional HPI, ROS, PE not included below will be deferred to primary provider. Patient is a 74-year-old male presenting to the emergency department with complaint of dog bite to his left hand. States it was his own dog who saw an airplane and got upset. Reports that the dog is fully up-to-date on vaccinations. Patient will need a Tdap. Skin tear to left middle finger and 2 skin tears to left dorsal hand. Plan: Tdap ordered Medications Administered Discontinued Medications Generic Name Dose Route Start Last Admin Trade Name Freq PRN Reason Stop Dose Admin Amoxicillin/Clavulanate Potassium 875 mg 01/13/25 19:37 01/13/25 19:44 Amoxicillin/Potassium Clav 875 Mg Tablet PO 01/13/25 19:38 875 mg ONCE ONE Administration Bacitracin 1 appl 01/13/25 19:36 01/13/25 19:44 Bacitracin Oint 0.9 Gm Packet TOPICAL 01/13/25 19:37 1 appl ONCE ONE Administration Protocol Diphtheria/Tetanus/Acell Pertussis 0.5 ml 01/13/25 15:26 01/13/25 17:43 Diphth,Pertus(Acell),Tet Adult 0.5 Ml Syringe IM 01/13/25 15:27 0.5 ml .ONCE ONE Administration Medical Decision Making Medical Decision Making MDM Narrative: 74-year-old male presents for evaluation of a dog bite to his left hand. This was his own dog in his up-to-date on rabies vaccines. The patient has no obvious visual or palpable bony deformity. He has full range of motion, no significant pain, an x-ray was considered but ultimately deferred. He has several superficial abrasions. He does have a slightly deeper, v-shaped laceration. Given this was a dog bite and it approximates well with Steri-Strips, we will defer sutures and treat with Augmentin. The tetanus was updated. Differential Diagnosis Differential Diagnoses: The differential diagnosis associated with the presentation includes Laceration Skin tear Puncture wound Abrasion Hand fracture less likely Tests considered The following testing was considered but not selected: Consider x-ray of the left hand due to the dog bite but ultimately have a very low suspicion for fracture Discharge Plan Discharge Clinical Impression: Dog bite of dorsum of hand Patient Disposition: Home, Self-Care Instructions: Animal Bite (ED) Additional Instructions: Your wound was closed with Steri-Strips due to the high risk of infection if we sutured the wound. I recommend changing of the dressing Friday morning. You may apply topical antibiotic when change of the dressing. Take Augmentin twice daily for 5 days to prevent infection. Follow up with your primary doctor, return for new or worsening symptoms Prescriptions: New amoxicillin-pot clavulanate 875-125 mg tablet 1 tab PO Q12H Qty: 10 0RF No Action finasteride 5 mg tablet 5 mg PO DAILY 90 Days Qty: 90 3RF Interventions: ED Discharge Assessment Last Done: 01/13/25 20:04 Print Language: Panamanian
[2025-01-13 16:00] VITALS: BP 135/79; PULSE 69; RESP 18; TEMP 36.6; O2SAT 96
[2025-01-13] MEDS: Diphth,Pertus(ACell),Tet Adult 0.5 ML SYRINGE IM (17:43)
[2025-01-13 18:00] VITALS: BP 135/79; PULSE 69; RESP 18; O2SAT 96
--- NOTE | 2025-01-13 18:08 | MHC.EDTECH ---
removed gauze pt came in with on, cleaned wounds with saline and left with a wet dressing until provider is able to stitch area
[2025-01-13 20:04] VITALS: BP 135/79; PULSE 69; RESP 18; TEMP -17.7; TEMP 0; O2SAT 96
== END 2025-01-13 20:15 | disposition home or self-care (01) ==
PROVIDERS: Emergency Provider Emergency Medicine
DX: S61.452A Open bite of left hand, initial encounter (principal); W54.0XXA Bitten by dog, initial encounter; Y93.9 Activity, unspecified; Y92.9 Unspecified place or not applicable; Y99.9 Unspecified external cause status; Z23 Encounter for immunization
CPT/HCPCS: 90471; 90715; 99284

== ENCOUNTER 2025-02-08 08:35 | Outpatient (REF) | payer OTHER, MEDICARE, SELFPAY ==
--- OUTSIDE RECORDS SUMMARY | 2025-02-08 09:00 | XMS_ITS | Patient Health Record ---
Author Organization [facility] Address [address] [place] [id number] Care Team Providers Care Supervisor Nut Processing Name Role Phone Lionel (RETIRED) Luis F DIOR Primary Care Provider Unavailable Adolfo Oneil Jr Unavailable Allergies Allergen (clinical drug ingredient) Drug/Non Drug Allergy documented on EMR Reaction Allergy Type Onset Date Status Sulfa Unknown Drug Allergy Active Reason For Referral No Information Medications Medication SIG (Take, Route, Frequency, Duration) Notes Start Date End Date Status Latanoprost 0.005 % Ophthalmic; Duration: 90 Active Finasteride 5 MG Oral; Duration: 90 Active MiraLax (colon prep) 17 GM/SCOOP mixed with Gatorade or Crystal Light Orally begin at 5:00 p.m. the day before the procedure; Duration: 1 day 01/08/2023 Active Immunizations Vaccine Route [...] Problem Status W/U Status Risk Notes Problem Colon cancer screening (699581860) Colon cancer screening (Z12.11) Active confirmed Problem Long-term current use of antiplatelet drug ([id number]) termite inspector (current) use of aspirin (Z79.82) Active confirmed Plan Of Treatment Future Test Test Name Order Date COLONOSCOPY 12/12/2011 COLONOSCOPY 07/31/2017 COLONOSCOPY 01/08/2023 Insurance Providers Payer Name Payer Address Payer Phone Subscriber Number Group Number Insured Name Patient Relationship to Insured Coverage Start Date Coverage End Date MEDICARE OF [place] [address] [place] [address] [id number] T[place] CAN Self - patient is the insured FOR LIFE [address] [place] [address] [id number] [employer] CAN Self - patient is the insured Medical (General) History Medical History History ICD Code Colon polyps, colonoscopy 09/24/17, tubul ar adenoma, five-year followup Elevated intraocular pressure Right bundle branch block prostate cancer Surgical History Surgery Date(Month/Year) vasectomy cystoscopy Prostate biopsy Cholecystectomy
[2025-02-08 09:56] LABS: PSA,Total (Free>4and<10) 4.12 ng/mL (0.00-4.00)
[2025-02-10 13:47] LABS: Free Prostate Spec Ag 1.0 ng/mL; Percent Free Prostate Spec Ag 25 % (calc) (>25)
== END 2025-02-08 08:36 | disposition home or self-care (01) ==
LOC: HO.LAB 08:35
PROVIDERS: PCP Internal Medicine; Visit Provider Urology
DX: C61 Malignant neoplasm of prostate (principal); Z12.5 Encounter for screening for malignant neoplasm of prostate
CPT/HCPCS: 36415; 84153; 84154

== ENCOUNTER 2025-02-15 10:14 | Outpatient (AMB) | payer MEDICARE, OTHER, SELFPAY ==
--- NOTE | 2025-02-15 10:16 | A.OFFVIS_ITS ---
Intake Vital Signs 02/15/25 10:17 Height 5 ft 8.9 in Weight 187 lb BMI 27.7 BP 115/60 Blood Pressure Location Lt brachial Position Sitting Respiration 14 Pulse 74 Pulse Source Pulse Oximeter Temp 97.9 F Temp Source Temporal Artery Scan Pulse Oximetry (%) 97 Oxygen Delivery Method Room Air Intake Visit Reasons: Wellness visit Marketing Sales Representative Required: No Accompanied by: Self / Same As Patient Allergies Sulfa (Sulfonamide Antibiotics) Allergy (Unknown, Verified 02/15/25 10:17) rash PFSH Medical History Right bundle branch block (RBBB) Family history of prostate cancer Elevated PSA Prostate cancer Surgical History Hx of prostate biopsy Hx laparoscopic cholecystectomy History of esophagogastroduodenoscopy (EGD) History of colonoscopy (~03/07/23) History of vasectomy Family History Father Heart attack Mother No problems noted. Paternal Grandfather Prostate cancer Social History Household Members: Spouse Housing: House Are you a primary human services care specialist to a significant other at home: No Do you presently have visiting nurse or other home services: No Alcohol intake: current Alcohol intake frequency: a few times a week Alcohol type: beer Patient Tobacco Use Status: Former Tobacco user service: Yes Current occupational status: retired Cognitive needs: No Hearing needs: Yes (b/l hearing aids) Vision needs: Yes (rx glasses) Questionnaire Medicare Wellness Checkup [age] What gender do you identify with?: male During the past 4 weeks, how much have you been bothered by emotional problems such as feeling anxious, depressed, irritable, sad or downhearted, and blue?: not at all During the past 4 weeks, has your physical & emotional health limited your social activities with family, friends, neighbors, or groups?: not at all During the past 4 weeks, how much bodily pain have you generally had?: mild pain During the past 4 weeks, was someone available to help you if you needed & wanted help?: yes, as much as I wanted During the past 4 weeks, what was the hardest physical activity you could do for at least 2 minutes?: heavy Can you get to places out of walking distance without help? (For eg., can you travel alone on buses, taxis or drive your car?): Yes Can you go shopping for groceries or clothes without someone's help?: Yes Can you prepare your own meals?: Yes Can you do your housework without help?: Yes Because of any health problems, do you need the help of another person with your personal care needs such as eating, bathing, dressing or getting around the house?: No Can you handle your own money without help?: Yes During the past 4 weeks, how would you rate your health in general?: very good During the past 4 weeks how have things been going for you?: pretty well Are you having difficulties driving your car?: no Do you always fasten your seat belt when you are in a car?: yes, usually During past 4 weeks, have you been bothered by the following: never: Falling or dizzy when standing up, Sexual problems?, Trouble eating well?, Problems using the telephone? and Tiredness or fatigue? and seldom: Teeth or denture problems? Have you fallen 2 or more times in the past year?: No Are you afraid of falling?: No Are you a smoker?: no During the past 4 weeks, how many drinks of wine, beer, or other alcoholic beverages did you have?: 1 drink or less per week Do you exercise for about 20 minutes 3 or more times a week?: no, I usually do not exercise this much Have you been given information to help with the following?: no: Hazards in your house that might hurt you? and no: Keeping track of your medications? How often do you have trouble taking medicines the way you have been told to take them?: I always take medicine as prescribed How confident are you that you can control & manage most of your health problems?: very confident What is your race?: White Mini Mental State Exam (MMSE) Orientation What is the (year) (season) (date) (day) (month)?: year, season, date and day Where are we (state) (county) (town or city) (hospital) (floor)?: state and county Score Score: 6 Activity of Daily Living Bathing - sponge bath, tub bath or shower: receives no assistance (gets in/out by self, if usual bathing means Dressing - getting clothes from closets & drawers, including inner/outer garments & fasteners.: gets clothes & gets completely dressed without help Toileting - going to the 'toilet room' for urine/bowel elimination & cleaning self/arranging clothes: goes to toilet room, cleans self, arranges clothes without help Transfer: moves in & out of bed and chair without help (may use support object) Continence: controls urination/bowel movements completely by self Feeding: feeds self without help Total Score: 0 Information obtained from: patient Using telephone: independent Traveling: independent Shopping: independent Preparing meals: independent Housework: independent Taking medicine: independent Managing money: independent PHQ-9 Over the last 2 weeks, how often have you been bothered by any of the following problems? 1. Little interest or pleasure in doing things: not at all 2. Feeling down, depressed, or hopeless: not at all 3. Trouble falling or staying asleep, or sleeping too much: not at all 4. Feeling tired or having little energy: not at all 5. Poor appetite or overeating: not at all 6. Feeling bad about yourself - or that you are a failure or have let yourself or your family down: not at all 7. Trouble concentrating on things, such as reading the newspaper or watching television: not at all 8. Moving or speaking so slowly that other people could have noticed. Or the opposite - being so fidgety or restless that you have been moving around a lot more than usual: not at all 9. Thoughts that you would be better off or of hurting yourself in some way: not at all Total score: 0 Source: Developed by Drs. Raz Leary, Christi Finch, Woody Elizabeth and colleagues, with an educational lisa from [employer]. Physical Exam Vital Signs: Last Vital Signs Temp 97.9 F 02/15/25 10:17 Pulse 74 02/15/25 10:17 Resp 14 02/15/25 10:17 BP 115/60 02/15/25 10:17 Pulse Ox 97 02/15/25 10:17 Oxygen Delivery Method Room Air 02/15/25 10:17 BMI result Body Mass Index 27.7 Balance: Normal Romberg: negative Tandem Walk: able to Walk and Turn: able to Rise from sit to stand: able to Hearing Whisper test:Pass [place] of Care and Individualized screening provided to patient Office Procedures Flu Questionnaire Does the patient have a severe egg allergy?: No Does the patient have severe life threatening allergies?: No Does the patient have a fever or illness today?: No Has the patient ever had Guillain-Tahoma Syndrome?: No Has the patient ever had any past reaction to a flu shot?: No Immunizations Fluarix [id number] (PF) 45 mcg (15 mcg x 3)/0.5 mL IM syringe Performing Provider: Pola Cornejo MD [facility] Documented (not given) by: EFRA Ramey on 02/15/25 10:34 Reason Not Given: Received Previously Assessment & Plan Assessment & Plan (1) Annual physical exam: Code(s): Z00.00 - Encounter for general adult medical examination without abnormal findings Plan: History of Present Illness - The patient is a 74-year-old male presenting for a Medicare wellness visit and review of recent laboratory results. - Regarding his recent lab work, the patient noted a white blood cell count of 11.4, which is a chronic finding for him and has been decreasing. - His PSA level has improved, decreasing from 6.5 to 4.1 after he resumed daily finasteride; the dose had previously been reduced to every other day by his urologist, Dr. Cartagena, which caused the level to rise. - The patient also questioned his BUN of 19 and an elevated bilirubin level, both of which were deemed not clinically concerning. - He has a history of a bundle branch block and is followed by Dr. Marino, a site acquisition specialist. - The patient reports being up-to-date on his colonoscopy, with another one due soon. - He has received vaccinations for influenza, RSV, pneumonia, and COVID-19. - He recently visited the emergency room for a hand laceration caused by his dog. Social History - The patient is a retired [employer] and a of three wars. - He lives with his and has two adult children who do not live at home. - He reports being able to perform all his activities, including driving at night and doing physical work. - The patient sleeps well. Review of Systems - Constitutional: Reports sleeping well. - General: Denies any current health concerns. Physical Exam General: Cooperative and healthy appearing Nutritional Appearance: Well nourished Orientation/consciousness: Patient oriented x3 Limitations: No limitations Head: Normal to inspection General: Appearance normal, both eyes and all related structures Neck: Normal visual inspection Chest: Normal palpation of entire chest wall Respiratory: N ormal respiratory effort Neurology: Patient oriented x3, able to perform all activities, drives at night, sleeps well except occasionally disturbed by dogs. Results - Lab Results: - White Blood Count: 11.4, noted as chronically high but decreasing. - PSA: 4.1, decreased from 6.5. - BUN: 19. - Bilirubin: Elevated (value not specified). Plan - Reassurance was provided regarding the patient's lab results, including the high white blood cell count, BUN, and bilirubin, as they are not clinically concerning. - The patient will continue daily finasteride for management of his elevated PSA. - The patient will continue follow-up with his specialists, including Dr. Cartagena for his prostate and Dr. Marino for his bundle branch block. - He is advised to proceed with his next colonoscopy as due. - A follow-up appointment is scheduled for six months. Discussion Notes I reviewed the patient's recent lab results with him and addressed his concerns. I explained that the elevated white blood cell count of 11.4 is a chronic finding for him and is actually decreasing, and is therefore not worrisome. I also reassured him that the slightly elevated BUN of 19 and elevated bilirubin are not clinically significant on their own. We discussed that his PSA level improved from 6.5 to 4.1 after he resumed taking his finasteride medication daily. I advised him to continue his specialist follow-ups and to schedule a return visit here in six months. Patient Instructions - I have reviewed your recent blood work, and the results are not a cause for concern. - Continue to take your finasteride medication every day. - Keep your upcoming appointments with your specialists, Dr. Cartagena and Dr. Marino. - Please get your next colonoscopy when it is due. - Schedule a follow-up appointment at the front desk admin to see me again in six months. Orders: Orders Influenza [id number] Immunization Today Z23 - Encounter for immunization Quality Reporting (2020) Depression/Bipolar (159/160/161/177) PHQ-9: Total score: 0 Coding Level of Care Code Medicare Subsequent (G0439) Diagnoses Annual physical exam Z00.00
[2025-02-15 10:17] VITALS: BP 115/60; PULSE 74; RESP 14; TEMP 36.6; O2SAT 97; BMI 27.7
--- OUTSIDE RECORDS SUMMARY | 2025-02-15 11:47 | XMS_ITS | Patient Health Record ---
Author Organization [facility] Address [address] [place] [id number] Care Team Providers Care Rn Urology Name Role Phone Lionel (RETIRED) Luis F [...] Status Risk Notes Problem Colon cancer screening (231803479) Colon cancer screening (Z12.11) Active confirmed Problem Long-term current use of antiplatelet drug (024319763575037) intermodal owner operator truck driver (current) use of aspirin (Z79.82) Active confirmed Plan Of Treatment Future Test Test Name Order Date COLONOSCOPY 12/12/2011 COLONOSCOPY 07/31/2017 COLONOSCOPY 01/08/2023 Insurance Providers Payer Name Payer Address Payer Phone Subscriber Number Group Number Insured Name Patient Relationship to Insured Coverage Start Date Coverage End Date MED[place]ARE OF [place] [address] [place] [address] [phone] [id number] TAMEKA CAN Self - patient is the insured FOR LIFE [address] [place] [address] [id number] TAMEKA CAN Self - patient is the insured Medical (General) History Medical History History ICD Code Colon polyps, colonoscopy 09/24/17, tubul ar adenoma, five-year followup Elevated intraocular pressure Right bundle branch block prostate cancer Surgical History Surgery Date(Month/Year) vasectomy cystoscopy Prostate biopsy Cholecystectomy
== END 2025-02-15 10:51 | disposition home or self-care (01) ==
LOC: HO.HMCSH 10:14
PROVIDERS: PCP Internal Medicine; Visit Provider Internal Medicine
DX: Z00.00 Encounter for general adult medical examination without abnormal findings (principal)

== ENCOUNTER 2025-02-25 07:55 | Outpatient (AMB) | payer MEDICARE, OTHER, SELFPAY ==
--- NOTE | 2025-02-25 07:56 | MHC.OFFVIS ---
Intake Visit Reasons: 4m/PSA Intake Note: Patient Is Present for PSA Urology Med: Finasteride Antibiotic Allergy: Sulfa Blood Thinner: None 02/08/25- Total PSA- 4.12 Free PSA: 1.0 %Free PSA- 25% Sewing Trimmer Required: No Accompanied by: Self / Same As Patient Allergies Sulfa (Sulfonamide Antibiotics) Allergy (Unknown, Verified 02/25/25 07:57) rash HPI Comments Details: Anthony is a pleasant male. He is a patient of Dr. Flowers. He is seen for the following urologic issue - prostate cancer Telemedicine Evaluation 15 min Consultation [employer] Lorenzo Video Has been on daily finasteride 4m f/u appropriate drop 05/01 Prostate MRI 65 gm prostate No discrete focus of abnormal signal intensity is identified to suggest clinically significant prostate carcinoma Prostate cancer group 1 - 02/23, 05/3023 Grade Group1 - active surveillance PSA 02/24 4.5, 07/26 6.0, 10/25 3.4, 03/27 2.75, 07/27 2.3, 01/26 2.7, 09/27 3.1, 01/27 3.5, 04/30 3.3, 07/29 3.5, 10/28 3.6, 01/28 4.1, 05/01 3.2, 10/29 6.6, 03/01 4.1 25% Has undergone single biopsy with MRI follow-up in November 2020 Prostate cancer diagnosed by Dr. Hoang February 2019, PSA at diagnosis 6.2 Initial pathology - Deb 3 + 3, 3/12 cores, maximum core 40% Imaging MRI 11/25 55 g prostate, apical right lesion, no evidence of extracapsular extension. PI-RADS 3 HAN 2+ no nodules Repeat Biopsy 05/30 Deb score:?6 (3+3) (e 2.5 and? c3 3.5) Number cores positive: 2 Total number of cores: 13 with prostatic tissue % of tissue involved: 1.77% of all prostatic tissue examined Periprostatic fat inv.: Not identified Seminal vesicle inv.: Not identified Perineural inv.: Not identified Lymphovascular invasion: Not identified Family history positive - grandfather Initial therapy - active surveillance with finasteride [facility] Medical History Right bundle branch block (RBBB) Family history of prostate cancer Elevated PSA Prostate cancer Surgical History Hx of prostate biopsy Hx laparoscopic cholecystectomy History of esophagogastroduodenoscopy (EGD) History of colonoscopy (~03/07/23) History of vasectomy Family History Father Heart attack Mother No problems noted. Paternal Grandfather Prostate cancer Social History Household Members: Spouse Housing: House Are you a primary child adolescent care to a significant other at home: No Do you presently have visiting nurse or other home services: No Alcohol intake: current Alcohol intake frequency: a few times a week Alcohol type: beer Patient Tobacco Use Status: Former Tobacco user service: Yes Current occupational status: retired Cognitive needs: No Hearing needs: Yes (b/l hearing aids) Vision needs: Yes (rx glasses) Review of Systems Const Denies chills and Denies fever(s) Card Reports no additional complaints and Denies syncope Resp Denies cough GI Denies abdominal pain and Denies heartburn Reports as per HPI and Denies change in libido Neuro Denies syncope Psych Denies change in libido Endo Denies change in libido Physical Exam Const General: cooperative, healthy appearing, comfortable and no acute distress Orientation/consciousness: patient oriented x3 HEENT Face and sinus: Yes normal facial exam Mouth: moist mucous membranes Neck Neck: Yes normal visual inspection, Yes full ROM and Yes trachea midline Chest Chest palpation & inspection: normal inspection of the chest Resp Effort & Inspection: normal respiratory effort, able to speak in complete sentences and no respiratory distress GI Inspection: Yes normal to inspection Back/Spine/Pelvis Cervical Spine: normal cervical lordosis Thoracic/Lumbar Spine: thoracic and lumbar spine normal to inspection Skin General skin exam: no rashes or lesions noted Neuro General: patient oriented x3, gait normal, tone normal and moves all extremities Extrem General: Yes normal to inspection and Yes capillary refill normal Telehealth Telehealth Location of provider rendering services: practice address Location of patient: address on file Patient Identification confirmed using: Name, : Yes Patient verbally consented to treatment: Yes Patient verbally consented to billing insurance company: Yes Patient informed of any privacy concerns related to visit: Yes Assessment & Plan Assessment & Plan (1) Prostate cancer: Comment: 201819 Grade group 1 PSA stable 2022 repeat biopsy grade group 1 Code(s): C61 - Malignant neoplasm of prostate Category: Medical Plan Six-month follow-up Orders: Orders PSA,Total (Free>4and<10) 6 Months C61 - Malignant neoplasm of prostate Patient Instructions: This note is constructed using voice recognition software. While every effort has been made to ensure accuracy nurse researcher errors may have been included. Imaging studies, laboratory and physical exam results were discussed and reviewed in detail. No major barriers to patient understanding were identified. An opportunity to ask questions regarding the treatment plan was provided. All questions were answered. The patient expressed understanding and agreement with the above treatment plan. The patient is aware they should contact our office by phone for worsening of their current condition or the appearance of new urologic symptoms. Compliance is encouraged with any medications and followup testing that is ordered. It is a privilege to participate in the urologic care of your patient. If you have any questions or concerns regarding treatment for the above conditions, or other urologic issues, please do not hesitate to contact me. The office telephone contact is [phone]. Sincerely, Dr Gonzalez Cartagena MD, [facility] - Urology Compassionate Specialist Care for the Genitourinary System Coding Level of Care Code Complex visit Add On G2211 Diagnoses Prostate cancer C61
--- OUTSIDE RECORDS SUMMARY | 2025-02-25 07:58 | XMS_ITS | Patient Health Record ---
Author Organization [facility] Address [address] [place] [id number] Care Team Providers Care Emergency Department Technician Name Role Phone Lionel (RETIRED) Luis F DIOR Primary Care Provider Unavailable Adolfo Oneil Jr Unavailable Allergies Allergen (clinical drug ingredient) Drug/Non Drug Allergy documented on EMR Reaction Allergy Type Onset Date Status Sulfa Unknown Drug Allergy Active Reason For Referral No Information Medications Medication SIG (Take, Route, Frequency, Duration) Notes Start Date End Date Status Latanoprost 0.005 % Solution Ophthalmic; Duration: 90 Act yair Finasteride 5 MG Tablet Oral; Duration: 90 Active MiraLax (colon prep) 17 GM/SCOOP Powder mixed with Gatorade or Crystal Light Orally begin at 5:00 p.m. the day before the procedure; Duration: 1 day 01/08/2023 Active Immunizations Vaccine Route Administration Date Status Comme nts Influenza Unknown 12/06/2016 Administered Influenza Unknown 01/06/2023 Administered Social History Tobacco Use: Social History Observation Description Date Details (start date - stop date) Former Smoker NA - NA Social History Drugs/Alcohol: Social Info Question Answer Notes Alcohol Screen Did you have a drink containing alcohol in the past year? Yes How often did you have a drink containing alcohol in the past year? 2 to 4 times a month (2 points) How many drinks did you have on a typical day when you were drinking in the past year? 1 or 2 drinks (0 point) How often did you have 6 or more drinks on one occasion in the past year? Never (0 point) Points 2 Interpretation Negative Tobacco Use: Social Info Question Answer Notes Tobacco Use/Smoking Patient is a former smoker When did you stop smoking? over 30 years ago How long has it been since you last smoked? 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 Section Notes: 1 beer per week 1 beer per week Problems Problem Type SNOMED Code ICD Code Onset Dates Problem Status W/U Status Risk Notes Problem Colon cancer screening (916458220) Colon cancer screening (Z12.11) Active confirmed Problem Long-term current use of antiplatelet drug ([id number]) superintendent container terminal (current) use of aspirin (Z79.82) Active confirmed Plan Of Treatment Future Test Test Name Order Date COLONOSCOPY 12/12/2011 COLONOSCOPY 07/31/2017 COLONOSCOPY 01/08/2023 Insurance Providers Payer Name Payer Address Payer Phone Subscriber Number Group Number Insured Name Patient Relationship to Insured Coverage Start Date Coverage End Date [place] OF [place] [address] [place] [address] [phone] [id number] TAMEKA CAN Self - patient is the insured [employer] [address] [place] [address] [id number] TAMEKA CAN Self - patient is the insured Medical (General) History Medical History History ICD Code Colon polyps, colonoscopy 09/24/17, tubul ar adenoma, five-year followup Elevated intraocular pressure Right bundle branch block prostate cancer Surgical History Surgery Date(Month/Year) vasectomy cystoscopy Prostate biopsy Cholecystectomy
== END 2025-02-25 09:29 | disposition home or self-care (01) ==
LOC: HO.HUSH 07:55
PROVIDERS: PCP Internal Medicine; Visit Provider Urology
DX: C61 Malignant neoplasm of prostate (principal)
CPT/HCPCS: 99213; G2211